=== PATIENT | male | born 1965 | race Caucasian/White ===

== ENCOUNTER 2017-03-18 14:18 | Emergency (ER) | payer MEDICARE, MEDICAID ==
[~2017-03-18] VITALS: Ht 177.8 cm; Wt 146.5 kg
[~2017-03-18 14:18] MED LIST: ADVAIR 500/501 E1 INH; ALLOPURINOL300 MG PO; ATORVASTATIN CA20 M1 PO; B12,B-12,B 12500 MC1 PO; CARDIZEM CD240 MG PO; CARDIZEM CD360 MG PO; CARVEDILOL25 MG PO; COLCHICINE0.6 MG PO; COUMADIN; COUMADIN0.5 MG PO; COUMADIN5 MG; COUMADIN6 MG; DELTASONE5 MG; DIAMOX250 MG PO; DIAMOX500 MG PO; DIGOXIN0.25 MG PO; DOXYCYCLINE MO100 MG; DOXYCYCLINE100 M3 PO; DUONEB 3 MG/3 ML3 M1 INH; FOLIC ACID1 MG PO; GLIPIZIDE5 MG PO; GLUCOTROL10 MG PO; LANTUS100 U/ML SC; LASIX80 MG PO; LEVAQUIN750 M1 PO; LOVASTATIN20 MG PO; MEDROL DOSEPAK4 MG PO; METFORMIN HCL1000 MG PO; METFORMIN500 MG PO; NASCOBAL500 MCG/01; NORCO 5-325 TA1 EACH PO; PENICILLIN VK500 MG PO; POTASSIUM20 MEQ PO; PREDNISONE10 MG PO; PREDNISONE20 MG; SINGULAIR10 M1 PO; SYMBICORT1 AE1 INH; TAZTIA XT360 MG PO; VIBRAMYCIN100 MG PO; VICODIN 5-3001 EACH PO; VITAMIN B121000 MC2 IM; VITAMIN D-32000 UNIT PO; XARE20MG PO; ZITHROMAX500 MG PO; [UNRECOGNIZED DRUG - REMARK]; coumadin
[2017-03-18 14:27] VITALS: BP 148/69
[2017-03-18 14:57] LABS: BILIRUBIN NEGATIVE (NEGATIVE); BLOOD NEGATIVE (NEGATIVE); CLARITY SL CLOUDY (CLEAR); COLOR YELLOW (YELLOW); GLUCOSE 1+ (NEGATIVE); KETONE NEGATIVE (NEGATIVE); LEUKO ESTERASE NEGATIVE (NEGATIVE); NITRITE NEGATIVE (NEGATIVE); PH 6.5 (5.0-9.0); PROTEIN 1+ (NEGATIVE)
[2017-03-18 14:57] LABS: BASO # 0.1 10*3/uL (0.0-0.1); BASO % 0.7 % (0.0-1.0); EOS # 0.2 10*3/uL (0.0-0.4); EOS % 1.9 % (1.0-4.0); HEMATOCRIT 43.3 % (42.0-52.0); HEMOGLOBIN 12.8 g/dl (14.0-18.0); LYMPH # 2.9 10*3/uL (1.3-4.4); LYMPH % 27.6 % (27.0-41.0); MEAN CELL VOLUME 91.7 fl (80.0-94.0); MEAN CORPUSCULAR HGB 27.1 pg (27.0-31.0); MEAN CORPUSCULAR HGB CONC 29.6 g/dl (33.0-37.0); MEAN PLATELET VOLUME 11.3 fl (9.6-12.3); MONO # 0.6 10*3/uL (0.1-1.0); MONO % 5.6 % (3.0-9.0); NEUT # 6.7 10*3/uL (2.3-7.9); NEUT % 63.8 % (47.0-73.0); PLATELET COUNT AUTOMATED 270 10*3/uL (130-400); RED BLOOD COUNT 4.72 10*6/uL (4.50-5.90); RED CELL DISTRI WIDTH 15.2 % (0-14.5); WHITE BLOOD COUNT 10.5 10*3/uL (4.8-10.8)
[2017-03-18 15:06] LABS: INTERNATIONAL NORM RATIO 1.1 (2.0-3.5); PROTHROMBIN TIME 11.3 SECONDS (9.0-12.4)
[2017-03-18 15:12] LABS: RBC 0-2 rbc/hpf (0-2); URINE REFLEX COMMENT NO (NO); WBC 0-2 wbc/hpf (0-5)
[2017-03-18 15:52] LABS: ALBUMIN 3.2 gm/dl (3.1-4.5); ALKALINE PHOSPHATASE 113 U/L (45-117); BILIRUBIN, TOTAL 0.5 mg/dl (0.2-1.0); BUN 10 mg/dl (7-24); CARBON DIOXIDE 34 mmol/L (21-32); CHLORIDE 96 mmol/L (98-107); EST GLOM FILT AFRICAN AMERICAN > 60 ml/min; GLUCOSE 271 mg/dL (65-99); SGOT/AST 8 IU/L (3-35); SGPT/ALT 14 U/L (12-78); SODIUM 138 mmol/L (136-145); TOTAL PROTEIN 7.2 gm/dL (6.4-8.2)
[2017-03-18 15:53] LABS: C-REACTIVE PROTEIN 1.24 MG/DL (0-0.3); CKMB < 0.5 ng/ml (0.5-3.6); CPK 36 U/L (39-308); MAGNESIUM 1.9 mg/dL (1.5-2.1); TROPONIN I < 0.015 ng/ml (<0.045)
[2017-03-18] MEDS ORDERED: PREDNISONE10 MG PO (16:01)
[2017-03-18] MEDS ORDERED: DOXYCYCLINE100 M3 PO (16:01)
== END 2017-03-18 16:19 | disposition home or self-care (01) ==
LOC: ED 14:18
PROVIDERS: Registered Nurse
DX: J96.10 Chronic respiratory failure, unspecified whether with hypoxia or hypercapnia (principal); J44.1 Chronic obstructive pulmonary disease with (acute) exacerbation; F17.200 Nicotine dependence, unspecified, uncomplicated; Z99.81 Dependence on supplemental oxygen; Z79.899 Other long term (current) drug therapy

== ENCOUNTER 2017-06-13 16:31 | Emergency (ER) | payer MEDICARE, MEDICAID ==
[~2017-06-13] VITALS: Ht 177.8 cm; Wt 147.4 kg
[2017-06-13 16:37] VITALS: BP 176/76
[2017-06-13] MEDS ORDERED: CLINDAMYCIN HC300 MG PO (18:26)
[2017-06-13] MEDS ORDERED: NAPROSYN500 MG PO (18:34)
== END 2017-06-13 18:28 | disposition home or self-care (01) ==
LOC: ED 16:31
DX: K02.9 Dental caries, unspecified (principal); F17.200 Nicotine dependence, unspecified, uncomplicated; J44.9 Chronic obstructive pulmonary disease, unspecified; I48.91 Unspecified atrial fibrillation; M10.9 Gout, unspecified; E11.65 Type 2 diabetes mellitus with hyperglycemia; E78.5 Hyperlipidemia, unspecified; E66.01 Morbid (severe) obesity due to excess calories; I50.9 Heart failure, unspecified; Z87.01 Personal history of pneumonia (recurrent); Z99.81 Dependence on supplemental oxygen; Z98.890 Other specified postprocedural states; Z79.899 Other long term (current) drug therapy

== ENCOUNTER → 2018-02-19 | Outpatient (CLI) | payer MEDICARE ==
[~2018-02-19] MED LIST changes: +CLINDAMYCIN HC300 MG PO; +CYCLOBENZAPRINE10 MG PO; +NAPROSYN500 MG PO
[2018-02-19 08:54] LABS: BILIRUBIN NEGATIVE (NEGATIVE); BLOOD NEGATIVE (NEGATIVE); CLARITY CLEAR (CLEAR); COLOR YELLOW (YELLOW); GLUCOSE 3+ (NEGATIVE); KETONE NEGATIVE (NEGATIVE); LEUKO ESTERASE NEGATIVE (NEGATIVE); NITRITE NEGATIVE (NEGATIVE); SPECIFIC GRAVITY 1.015 (1.005-1.030); UROBILINOGEN 0.2 E.U./dl (0.2-1.0)
[2018-02-19 09:13] LABS: EPITHELIAL CELLS 0-2
[2018-02-19 09:31] LABS: ALBUMIN 3.5 gm/dl (3.1-4.5); BUN 13 mg/dl (7-24); CHLORIDE 101 mmol/L (98-107); POTASSIUM 3.6 mmol/L (3.5-5.1); SGOT/AST 8 IU/L (3-35); SGPT/ALT 13 U/L (12-78); SODIUM 139 mmol/L (136-145)
[2018-02-19 09:35] LABS: ALKALINE PHOSPHATASE 123 U/L (45-117); BILIRUBIN, DIRECT 0.1 mg/dL (0.0-0.2); CHOLESTEROL 127 mg/dL (<200); CREATININE 0.94 mg/dL (0.70-1.30); HDL CHOLESTEROL 26 mg/dl (40-60); LDL CHOLESTEROL 66 mg/dL (9-159); TRIGLYCERIDES 176 mg/dl (<150); VLDL CHOLESTEROL 35 mg/dL (6-40)
== END | disposition home or self-care (01) ==
LOC: LAB 08:13
PROVIDERS: Internal Medicine
DX: E78.5 Hyperlipidemia, unspecified (principal); E11.65 Type 2 diabetes mellitus with hyperglycemia; E55.9 Vitamin D deficiency, unspecified

== ENCOUNTER → 2018-07-03 | Outpatient (CLI) | payer MEDICARE ==
[2018-07-03 10:18] LABS: BILIRUBIN NEGATIVE (NEGATIVE); BLOOD TRACE-INTACT (NEGATIVE); CLARITY CLEAR (CLEAR); COLOR YELLOW (YELLOW); GLUCOSE 3+ (NEGATIVE); KETONE NEGATIVE (NEGATIVE); LEUKO ESTERASE NEGATIVE (NEGATIVE); NITRITE NEGATIVE (NEGATIVE); SPECIFIC GRAVITY 1.015 (1.005-1.030)
[2018-07-03 10:30] LABS: ALBUMIN 3.3 gm/dl (3.1-4.5); ALKALINE PHOSPHATASE 107 U/L (45-117); BILIRUBIN, DIRECT 0.2 mg/dL (0.0-0.2); BUN 15 mg/dl (7-24); CHLORIDE 100 mmol/L (98-107); CHOLESTEROL 120 mg/dL (<200); CREATININE 0.93 mg/dL (0.70-1.30); HDL CHOLESTEROL 32 mg/dl (40-60); LDL CHOLESTEROL 63 mg/dL (9-159); POTASSIUM 3.7 mmol/L (3.5-5.1); SGOT/AST 6 IU/L (3-35); SGPT/ALT 14 U/L (12-78); SODIUM 142 mmol/L (136-145); TOTAL PROTEIN 7.4 gm/dL (6.4-8.2); TRIGLYCERIDES 127 mg/dl (<150); VLDL CHOLESTEROL 25 mg/dL (6-40)
== END ==
LOC: LAB 09:38
PROVIDERS: Internal Medicine
DX: E11.65 Type 2 diabetes mellitus with hyperglycemia (principal); E55.9 Vitamin D deficiency, unspecified; E78.5 Hyperlipidemia, unspecified

== ENCOUNTER 2018-08-30 11:26 | Inpatient (IN) | payer MEDICARE ==
[~2018-08-30] VITALS: Ht 177.8 cm; Wt 154.7 kg
[2018-08-30] VITALS (7 sets, daily range): BP systolic 123–153; BP diastolic 62–79
--- NOTE | ~2018-08-30 | PR ---
[place], [place] PROGRESS NOTE NAME: KOJO BORJAS [facility] WITH [facility] #: [id number] UNIT #: [id number] ROOM: 407 DOCTOR: CAROLINA ACUÑA MD,CHINO BIRTHDATE: [birth year] DOS: 09/01/2018 PULMONARY PROGRESS NOTE SUBJECTIVE: The patient has been comfortably resting, using BiPAP. Reported gradual reduction of the symptoms of shortness of breath, coughing, and wheezing in the last 24 hours. Denies symptoms of fever or chills. Denies any pain of the lower extremities. The patient denies symptoms of headache, diplopia, nausea, and vomiting. He is complaining of some mild dryness of the mouth. OBJECTIVE: VITAL SIGNS: Normal temperature, respiratory rate 20, heart rate 91, blood pressure 139/65. Pulse oxygen saturation on 5 liters nasal cannula was 98% saturation. HEENT: Chronic obesity. Head was atraumatic. Eyes nonicterus. NECK: Supple. CARDIOVASCULAR: S1 and S2 audible. LUNGS: Moderate decreased breath sounds, mild expiratory wheezing. ABDOMEN: Soft, nontender. Bowel sounds present. EXTREMITIES: Without any acute edema. VISIBLE SKIN: No lesions or rashes. MUSCULOSKELETAL: Without any acute deformities. CENTRAL NERVOUS SYSTEM: Cranial nerves 2-12 intact. DIAGNOSTIC DATA: Chest x-ray that was done yesterday shows evidence of pleural fluid with improvement in the aeration noted partially as well. Left lung appeared to be clear. Culture of the sputum preliminary noted normal berta. BMP this morning with BUN 25, creatinine normal, glucose 209, sodium 135, CO2 35. CBC this morning with WBC 11.6, hemoglobin 9.1, hematocrit 34.6, and platelet count 350,000. IMPRESSION: 1. The patient with resolving acute congestive heart failure with acute on chronic hypercapnic hypoxic respiratory failure. 2. Compression atelectasis. 3. Acute exacerbation of chronic obstructive pulmonary disease. 4. Chronic nicotine dependence. PLAN OF THERAPY: Continue diuretics, bronchodilators, and oxygen supplementation. Monitoring of respiratory status. Continue Solu-Medrol at current dose. Continuation of diuretic, which has been switched to intravenous Lasix 100 mg IV daily. Bronchodilators administration. Continue use of BiPAP. Ambulation as tolerated. Titrate oxygen supplementation to maintain pulse ox saturation 92% or greater. [place], [place] PROGRESS NOTE NAME: KOJO BORJAS UNIT #: [id number] ROOM: 407 DOCTOR: CAROLINA ACUÑA MD,CHINO BIRTHDATE: [birth year] CHINO FIGUEROA MD CM:PNCLYDE [id number] 1353 CHINO ACUÑA MD 09/01/18 1352 interface
--- NOTE | ~2018-08-30 | EKG ---
[place], [place] ELECTROCARDIOGRAM REPORT NAME: KOJO BORJAS UNIT #: [id number] ROOM: 407 DOCTOR: ANAMARIA DRAFT REPORT BIRTHDATE: [birth year] [facility] Test Date: 2018-08-30 Test Time: 11:54:16 Pat Name: KOJO BORJAS Department: Room: 407 Gender: M Kindergarten Instructional Assistant: Hilary Abrams : 1965 Requested By: ANKITA FARFAN DNP Order Number: [id number] Reading MD: Blair Del Toro MD Measurements Intervals [place] Rate: 80 P: [place]: QRS: 67 QRSD: 107 T: 71 QT: 399 QTc: 461 Interpretive Statements Atrial fibrillation Low voltage, extremity leads Borderline ST depression, anterior leads Electronically Signed On 08-31-2018 12:41:05 PST by Blair Del Toro MD CM:EKGRPT:ELECTROCARDIOGRAM REPORT [id number] ANKITA CONRAD DRAFT REPORT ANKITA FARFAN DNP
--- NOTE | ~2018-08-30 | PR ---
[place], [place] PROGRESS NOTE [id number] UNIT #: [id number] ROOM: 407 DOCTOR: CAROLINA ACUÑA MD,CHINO BIRTHDATE: [birth year] DOS: 09/02/2018 PULMONARY PROGRESS NOTE SUBJECTIVE: The patient has been noted comfortable at this time with continued reduction and resolution of acute respiratory symptoms, shortness of breath and cough. Denies symptoms of chest pain. No fever or chills. The edema of the extremity was resolving. PHYSICAL EXAMINATION: VITAL SIGNS: Normal temperature, respiratory rate of 18, heart rate of 68, blood pressure 118/53. The pulse oxygen saturation recorded as 95% on 40% oxygen. HEENT: Head was atraumatic. Eyes nonicterus. NECK: Supple. CARDIOVASCULAR: S1, S2 is audible. LUNGS: The patient was noted with improvement in air entry, still noted decreased breaths in the right lower lung. ABDOMEN: Soft, nontender. Bowel sounds present. EXTREMITIES: No new change. LABORATORY DATA: BMP: BUN 27, creatinine normal, glucose 244 and CO2 35. IMPRESSION: 1. Resolving congestive heart failure. 2. Improvement in acute exacerbation of chronic obstructive pulmonary disease progressively and respiratory status in general. PLAN OF TREATMENT: Discharge planning by primary care physician. From the pulmonary standpoint, the patient could consider discharge on oral diuretics, bronchodilators, and tapering dose of prednisone. CHINO FIGUEROA MD CM:PNTRANS [id number] 1335 CHINO ACUÑA MD 09/02/18 1333 interface
--- NOTE | ~2018-08-30 | CON ---
[place], [place] REPORT OF CONSULTATION NAME: KOJO BORJAS [facility] #: [id number] UNIT #: [id number] ROOM: 407 DOCTOR: CHINO DUARTE MD BIRTHDATE: [birth year] DOS: 08/31/2018 PULMONARY CONSULTATION, EVALUATION AND MANAGEMENT CONSULTATION REQUESTED BY: Hospitalist services. REASON FOR CONSULTATION: For assessment of acute exacerbation of chronic obstructive pulmonary disease. HISTORY OF PRESENT ILLNESS: This is a 52-year-old white male known to me with past history of end-stage COPD with chronic hypercapnia hypoxic respiratory failure, severe obstructive sleep apnea disorder, and metabolic alkalosis. The patient admitted to the hospital on 08/30/2018. The patient presented to the hospital. The patient reportedly getting acute shortness of breath more than his usual shortness of breath in the past 1 week. The shortness of breath has been noted progressively worsened. The patient was noted symptoms of coughing and expectorating intermittent yellowish sputum of different quantity. The symptoms was also associated wheezing and tightness in the chest. There were no symptoms of chest pain reported by the patient. The patient was assessed in the Emergency Room for further assessment. He has been currently admitted to the hospital for the medical management of acute exacerbation of COPD. REVIEW OF SYSTEMS: CONSTITUTIONAL: Fatigue and tiredness were reported without any symptoms of fever or chills. EYES: Denies any burning, redness, or tenderness. EARS, NOSE, AND THROAT: Denies sore throat, hoarseness, otalgia, postnasal drainage or epistaxis. CARDIOVASCULAR: Denies angina pain noted with intermittent edema of the lower extremities. GASTROINTESTINAL: No dysphagia, nausea, vomiting, diarrhea, abdominal pain, hematemesis, melena, or hematochezia. Reported bloating symptoms in the abdomen. GENITOURINARY: No dysuria, suprapubic pain, or hematuria. MUSCULOSKELETAL: No acute joint pain, redness, or tenderness. SKIN: Denies abnormal lesions or rashes. CENTRAL NERVOUS SYSTEM: Denies dizziness, headache, diplopia, or syncopal episodes. Remaining systems were reviewed, they were noted all negative. PAST MEDICAL HISTORY: 1. End-stage COPD. 2. Chronic hypoxic respiratory failure with use of oxygen for long-term. 3. Chronic atrial fibrillation. 4. Congestive heart failure with diastolic dysfunction. 5. Severe morbid obesity. 6. Cor pulmonale. 7. Continue low-grade nicotine abuse. 8. Uncomplicated severe persistent bronchial asthma. [place], [place] REPORT OF CONSULTATION NAME: KOJO BORJAS UNIT #: [id number] ROOM: 407 DOCTOR: CAROLINA ACUÑA MD,CHINO BIRTHDATE: [birth year] 9. Obstructive sleep apnea disorder, manic with the BiPAP settings of 18/4 with 4 liters of oxygen supplement. 10. Essential hypertension. 11. Past history of polycythemia secondary to chronic hypoxia, resolved. 12. 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 PAST SURGICAL HISTORY: 1. Left eye because of strabismus. 2. Left foot surgery. 3. Therapeutic bronchoscopy. SOCIAL HISTORY: The patient is currently , lives with a girlfriend. Denies history of alcohol use, has been known with history of marijuana use recreationally at times. Denies any alcohol use. Tobacco use noted at age of 89 years old, about a pack of cigarettes per day, currently smoking 2-3 cigarettes a day, sometimes quarter of a pack of cigarettes per day. FAMILY HISTORY: Noted as father at 64 years with complication of coronary artery disease and colon cancer. Mother at the age 64 years due to complications of an MVA. CURRENT MEDICATIONS: Administered during this hospitalization Digoxin, Cardizem, potassium chloride, Diamox, allopurinol, nicotine, Xarelto, Solu-Medrol 40 mg b.i.d., Lipitor, Lasix 80 mg p.o. b.i.d., DuoNeb q.4 hours, Levaquin, and others. DRUG ALLERGIES: No known drug allergies. PHYSICAL EXAMINATION: GENERAL: This is a 52-year-old male patient who has been currently noted awake and alert without any acute distress this morning of assessment, using oxygen supplementation with use of the BiPAP last night. VITAL SIGNS: Height 5 feet 10 inches, weight of 341 pounds, BMI 48.9. Recorded as normal temperature, respiratory 24-16, heart rate of 90-74, blood pressure 140/67-128/62. Intake for the patient of 870, output 600 mL. The pulse oxygen saturation, 96% saturation on 6 L nasal cannula. HEENT: Examination shows head was atraumatic. Eyes nonicterus. NECK: Supple. Severe chronic obesity. CARDIOVASCULAR: S1, S2 audible. LUNGS: Noted with expiratory wheezing in the lungs bilaterally. There were no crackles. ABDOMEN: Noted severe obesity. Bowel sounds present. EXTREMITIES: Chronic changes. Mild edema of the lower extremities. CENTRAL NERVOUS SYSTEM: Cranial nerves 2-12 intact. VISIBLE SKIN: No lesions or rashes. MUSCULOSKELETAL: Without any acute deformities. LABORATORY DATA: The lactic acid yesterday 1.7. CBC yesterday on admission, WBC count normal, hemoglobin 11.7, hematocrit 36.4, and platelet count normal. CMP, normal BUN and creatinine. CO2 of 37. PT/PTT yesterday as normal. [place], [place] REPORT OF CONSULTATION NAME: KOJO BORJAS UNIT #: [id number] ROOM: 407 DOCTOR: CAROLINA ACUÑA MD,[facility] BIRTHDATE: [birth year] Arterial blood gas that was done yesterday afternoon, pH of 7.33, pCO2 of 68, pO2 of 60.9 on 6 liters nasal cannula. CBC this morning essentially remains the same. PT/PTT repeated again this morning. CMP this morning, glucose 177, CO2 of 37, normal other electrolytes. Chest x-ray that was done on 08/30/2018 just 1 view was reviewed, which shows the increased pulmonary venous congestion marking, possibility of pleural fluid in the right side was noted, compression atelectasis. Difficult to exclude any pneumonia. Cardiomegaly was seen. IMPRESSION: 1. The patient will be currently admitted to the hospital with an [id number] hypercapnic hypoxic respiratory failure result of congestive heart failure, pleural fluid formation, compression elected likely pneumonia. The patient appeared to be less likely recurrent for assessment. 2. Acute exacerbation of the chronic obstructive pulmonary disease as well. 3. The patient with severe morbid obesity. 4. Chronic anticoagulation with atrial fibrillation, which has been noted currently in controlled range. 5. Severe morbid obesity. 6. Chronic metabolic alkalosis. 7. Low-grade nicotine abuse. PLAN OF MANAGEMENT: I will be ordering a PA lateral chest x-ray at this time. Continue antibiotics until the culture results available and possible discontinuation should be considered at that time. Continue current dose of the corticosteroids. The BiPAP has been started with setting of 18/10 to support the respiratory failure during current hospitalization. Obtain the sputum for Gram stain and culture. The patient is able to expectorate sputum as well. Additional treatment changes will be ordered based on progression of the illness. Supportive care, other treatment therapy, plan of management and care plan for this patient as well. Bronchodilators continue to be administered every 4 hours. Other plan of management therapy a plan of care for patient as well. Additional treatment changes recommended based on progression of the illness. If the pleural fluid will be confirmed and an enlarged further thoracentesis might need to be performed for this to resolve the current pleural fluid. Diuretic might need to be switched to the intravenous, if the repeat chest x-ray, which showed persistent congestive heart failure findings. Thanks for allowing me to participate in care of this patient. [place], [place] REPORT OF CONSULTATION NAME: KOJO BORJAS [place] UNIT #: [id number] ROOM: [facility] DOCTOR: CHINO DUARTE MD BIRTHDATE: [birth year] CHINO FIGUEROA MD CM:CONSTR:REPORT OF CONSULTATION 1307 09/01/18 0240 interface
[~2018-08-30 11:26] MED LIST changes: +ACETAZOLAMIDE250 MG PO; -DIAMOX500 MG PO; +LANTUS SOL100 UNIT/1 SQ; -LANTUS100 U/ML SC; +SYMB160 INH; -SYMBICORT1 AE1 INH; -TAZTIA XT360 MG PO; +TIAZAC360 M1 PO
[2018-08-30 11:59] LABS: BASO # 0.1 10*3/uL (0.0-0.1); EOS # 0.2 10*3/uL (0.0-0.4); EOS % 1.7 % (1.0-4.0); HEMATOCRIT 36.4 % (42.0-52.0); HEMOGLOBIN 9.7 g/dl (14.0-18.0); LYMPH # 2.1 10*3/uL (1.3-4.4); LYMPH % 20.1 % (27.0-41.0); MEAN CORPUSCULAR HGB 21.8 pg (27.0-31.0); MEAN CORPUSCULAR HGB CONC 26.6 g/dl (33.0-37.0); MEAN PLATELET VOLUME 9.6 fl (9.6-12.3); MONO # 0.6 10*3/uL (0.1-1.0); MONO % 5.4 % (3.0-9.0); NEUT # 7.5 10*3/uL (2.3-7.9); NEUT % 71.3 % (47.0-73.0); PLATELET COUNT AUTOMATED 346 10*3/uL (130-400); RED BLOOD COUNT 4.44 10*6/uL (4.50-5.90); RED CELL DISTRI WIDTH 18.4 % (0-14.5); WHITE BLOOD COUNT 10.5 10*3/uL (4.8-10.8)
[2018-08-30 12:08] LABS: ACT PARTIAL THROMBO TIME 27.7 SECONDS (20.8-31.5); INTERNATIONAL NORM RATIO 1.1 (2.0-3.5)
[2018-08-30 12:16] LABS: ALBUMIN 3.1 gm/dl (3.1-4.5); ALKALINE PHOSPHATASE 106 U/L (45-117); BUN 13 mg/dl (7-24); CHLORIDE 98 mmol/L (98-107); CREATININE 0.98 mg/dL (0.70-1.30); LIPASE 300 U/L (73-393); POTASSIUM 3.9 mmol/L (3.5-5.1); SGOT/AST 9 IU/L (3-35); SGPT/ALT 12 U/L (12-78); SODIUM 137 mmol/L (136-145); TOTAL PROTEIN 7.3 gm/dL (6.4-8.2)
[2018-08-30 12:17] LABS: TROPONIN I < 0.015 ng/ml (<0.045)
[2018-08-30] MEDS ORDERED: VITAMIN D22000 UNIT PO (15:04)
[2018-08-30] MEDS ORDERED: PROAIR HFA8.5 GM INH (15:05)
[2018-08-30] MEDS ORDERED: COLACE100 MG PO (15:06)
[2018-08-30] MEDS ORDERED: LANOXIN250 MCG PO (15:11)
[2018-08-30 16:10] LABS: ABG BASE EXCESS 8.1 mmol/L (-2.0-2.0); ABG HCO3 35.6 mmol/l (22-26); ABG O2 SATURATION 90.8 % (95-97); ARTERIAL BLOOD GAS PCO2 68.4 mmHg (35-45); ARTERIAL BLOOD GAS PH 7.333 (7.35-7.45); ARTERIAL BLOOD GAS PO2 60.9 mmHg (80-90)
[2018-08-31] VITALS: BP 110/41
[2018-08-31 06:28] LABS: ACT PARTIAL THROMBO TIME 24.4 SECONDS (20.8-31.5); INTERNATIONAL NORM RATIO 1.1 (2.0-3.5)
[2018-08-31 06:29] LABS: BASO % 0.1 % (0.0-1.0); HEMATOCRIT 34.8 % (42.0-52.0); HEMOGLOBIN 9.2 g/dl (14.0-18.0); LYMPH # 1.1 10*3/uL (1.3-4.4); LYMPH % 10.6 % (27.0-41.0); MEAN CELL VOLUME 80.9 fl (80.0-94.0); MEAN CORPUSCULAR HGB 21.4 pg (27.0-31.0); MEAN CORPUSCULAR HGB CONC 26.4 g/dl (33.0-37.0); MEAN PLATELET VOLUME 10.5 fl (9.6-12.3); MONO # 0.2 10*3/uL (0.1-1.0); MONO % 1.5 % (3.0-9.0); NEUT # 8.8 10*3/uL (2.3-7.9); NEUT % 87.2 % (47.0-73.0); PLATELET COUNT AUTOMATED 339 10*3/uL (130-400); RED CELL DISTRI WIDTH 18.1 % (0-14.5); WHITE BLOOD COUNT 10.1 10*3/uL (4.8-10.8)
[2018-08-31 06:49] LABS: ALBUMIN 2.9 gm/dl (3.1-4.5); ALKALINE PHOSPHATASE 92 U/L (45-117); BUN 19 mg/dl (7-24); CHLORIDE 99 mmol/L (98-107); CHOLESTEROL 110 mg/dL (<200); CREATININE 0.93 mg/dL (0.70-1.30); HDL CHOLESTEROL 29 mg/dl (40-60); LDL CHOLESTEROL 68 mg/dL (9-159); PHOSPHOROUS 3.6 mg/dL (2.5-4.9); POTASSIUM 4.4 mmol/L (3.5-5.1); SGOT/AST 6 IU/L (3-35); SGPT/ALT 9 U/L (12-78); SODIUM 140 mmol/L (136-145); TOTAL PROTEIN 6.8 gm/dL (6.4-8.2); TRIGLYCERIDES 66 mg/dl (<150); VLDL CHOLESTEROL 13 mg/dL (6-40)
[2018-08-31 06:54] LABS: THYROID STIM HORMONE (HS) 0.566 uIU/ml (0.358-4.75)
[2018-08-31 08:00] VITALS: BP 128/62
[2018-08-31 08:03] LABS: VITAMIN D, 25-HYDROXY 26.3 ng/mL (30-100)
[2018-08-31 12:00] VITALS: BP 142/51
[2018-08-31 16:00] VITALS: BP 169/75
[2018-08-31 20:00] VITALS: BP 135/62
[2018-09-01] VITALS: BP 139/65
[2018-09-01 06:28] LABS: BASO % 0.1 % (0.0-1.0); HEMATOCRIT 34.6 % (42.0-52.0); HEMOGLOBIN 9.1 g/dl (14.0-18.0); LYMPH % 8.7 % (27.0-41.0); MEAN CELL VOLUME 80.5 fl (80.0-94.0); MEAN CORPUSCULAR HGB 21.2 pg (27.0-31.0); MEAN CORPUSCULAR HGB CONC 26.3 g/dl (33.0-37.0); MEAN PLATELET VOLUME 10.6 fl (9.6-12.3); MONO # 0.3 10*3/uL (0.1-1.0); MONO % 2.2 % (3.0-9.0); NEUT # 10.3 10*3/uL (2.3-7.9); NEUT % 88.6 % (47.0-73.0); PLATELET COUNT AUTOMATED 350 10*3/uL (130-400); RED CELL DISTRI WIDTH 18.1 % (0-14.5); WHITE BLOOD COUNT 11.6 10*3/uL (4.8-10.8)
[2018-09-01 06:52] LABS: BUN 25 mg/dl (7-24); CHLORIDE 94 mmol/L (98-107); CREATININE 0.96 mg/dL (0.70-1.30); POTASSIUM 4.1 mmol/L (3.5-5.1); SODIUM 135 mmol/L (136-145)
[2018-09-01 08:00] VITALS: BP 136/72
[2018-09-01 12:00] VITALS: BP 146/74
[2018-09-01 16:30] VITALS: BP 145/68
[2018-09-01 20:00] VITALS: BP 157/65
[2018-09-02] VITALS: BP 118/53
[2018-09-02 06:47] LABS: BASO % 0.1 % (0.0-1.0); HEMATOCRIT 35.4 % (42.0-52.0); HEMOGLOBIN 9.5 g/dl (14.0-18.0); LYMPH # 1.1 10*3/uL (1.3-4.4); LYMPH % 9.6 % (27.0-41.0); MEAN CELL VOLUME 80.3 fl (80.0-94.0); MEAN CORPUSCULAR HGB 21.5 pg (27.0-31.0); MEAN CORPUSCULAR HGB CONC 26.8 g/dl (33.0-37.0); MEAN PLATELET VOLUME 10.4 fl (9.6-12.3); MONO # 0.4 10*3/uL (0.1-1.0); MONO % 3.6 % (3.0-9.0); NEUT # 10.2 10*3/uL (2.3-7.9); PLATELET COUNT AUTOMATED 356 10*3/uL (130-400); RED BLOOD COUNT 4.41 10*6/uL (4.50-5.90); RED CELL DISTRI WIDTH 17.9 % (0-14.5); WHITE BLOOD COUNT 11.8 10*3/uL (4.8-10.8)
[2018-09-02 07:10] LABS: BUN 27 mg/dl (7-24); CHLORIDE 98 mmol/L (98-107); CREATININE 0.95 mg/dL (0.70-1.30); POTASSIUM 4.5 mmol/L (3.5-5.1); SODIUM 139 mmol/L (136-145)
[2018-09-02 08:00] VITALS: BP 136/64
[2018-09-02] MEDS ORDERED: PREDNISONE10 MG PO (11:47)
[2018-09-02] MEDS ORDERED: DOXYCYCLINE100 M3 PO (11:47)
[2018-09-02] MEDS ORDERED: B12,B-12,B 12500 MC1 PO (11:47)
[2018-09-02] MEDS ORDERED: Zaroxolyn,Diul2.5 MG PO (11:47)
[2018-09-02 12:00] VITALS: BP 139/70
== END 2018-09-02 12:44 | disposition home or self-care (01) | DRG 871 ==
LOC: ED 11:26 → EDHOLD 13:38 → 4E 13:38
PROVIDERS: Internal Medicine; Internal Medicine Critical Care Medicine; Nurse Practitioner Family
PROC: 5A09357 Assistance with Respiratory Ventilation, Less than 24 Consecutive Hours, Continuous Positive Airway Pressure (ICD-10-PCS; principal; 2018-08-31)
PROC: 5A09357 Assistance with Respiratory Ventilation, Less than 24 Consecutive Hours, Continuous Positive Airway Pressure (ICD-10-PCS; 2018-09-01)
PROC: 5A09357 Assistance with Respiratory Ventilation, Less than 24 Consecutive Hours, Continuous Positive Airway Pressure (ICD-10-PCS; 2018-09-02)
DX: A41.9 Sepsis, unspecified organism (principal); J18.1 Lobar pneumonia, unspecified organism; J96.22 Acute and chronic respiratory failure with hypercapnia; J96.21 Acute and chronic respiratory failure with hypoxia; J44.1 Chronic obstructive pulmonary disease with (acute) exacerbation; I50.32 Chronic diastolic (congestive) heart failure; J44.0 Chronic obstructive pulmonary disease with (acute) lower respiratory infection; J98.11 Atelectasis; E87.3 Alkalosis; D64.9 Anemia, unspecified; D72.810 Lymphocytopenia; E83.41 Hypermagnesemia; I48.2 Chronic atrial fibrillation; I07.1 Rheumatic tricuspid insufficiency; I27.20 Pulmonary hypertension, unspecified; I11.0 Hypertensive heart disease with heart failure; J45.50 Severe persistent asthma, uncomplicated; G47.33 Obstructive sleep apnea (adult) (pediatric); F17.210 Nicotine dependence, cigarettes, uncomplicated; I48.0 Paroxysmal atrial fibrillation; M10.9 Gout, unspecified; E78.5 Hyperlipidemia, unspecified; E11.65 Type 2 diabetes mellitus with hyperglycemia; K64.9 Unspecified hemorrhoids; E66.01 Morbid (severe) obesity due to excess calories; G47.30 Sleep apnea, unspecified; Z71.6 Tobacco abuse counseling; Z99.81 Dependence on supplemental oxygen; Z83.3 Family history of diabetes mellitus; Z79.899 Other long term (current) drug therapy; Z82.49 Family history of ischemic heart disease and other diseases of the circulatory system; Z80.0 Family history of malignant neoplasm of digestive organs

== ENCOUNTER → 2018-09-10 | Outpatient (CLI) | payer MEDICARE ==
[~2018-09-10] MED LIST changes: +COLACE100 MG PO; +DOXYCYCLINE100 MG PO; +LANOXIN250 MCG PO; +PROAIR HFA8.5 GM INH; +VITAMIN D22000 UNIT PO; +Zaroxolyn,Diul2.5 MG PO
== END | disposition home or self-care (01) ==
LOC: RAD 12:36
DX: J90 Pleural effusion, not elsewhere classified (principal); I11.0 Hypertensive heart disease with heart failure; I50.9 Heart failure, unspecified; E11.9 Type 2 diabetes mellitus without complications; J44.9 Chronic obstructive pulmonary disease, unspecified; F17.200 Nicotine dependence, unspecified, uncomplicated

== ENCOUNTER → 2018-10-03 | Outpatient (CLI) | payer OTHER ==
[2018-10-03 10:28] LABS: BILIRUBIN NEGATIVE (NEGATIVE); BLOOD TRACE-LYSED (NEGATIVE); CLARITY SL CLOUDY (CLEAR); COLOR YELLOW (YELLOW); GLUCOSE 3+ (NEGATIVE); KETONE NEGATIVE (NEGATIVE); LEUKO ESTERASE NEGATIVE (NEGATIVE); NITRITE NEGATIVE (NEGATIVE); PH 6.5 (5.0-9.0)
[2018-10-03 10:58] LABS: ALBUMIN 3.3 gm/dl (3.1-4.5); ALKALINE PHOSPHATASE 116 U/L (45-117); BILIRUBIN, DIRECT 0.2 mg/dL (0.0-0.2); BUN 9 mg/dl (7-24); CHLORIDE 98 mmol/L (98-107); CHOLESTEROL 140 mg/dL (<200); CREATININE 0.87 mg/dL (0.70-1.30); HDL CHOLESTEROL 31 mg/dl (40-60); LDL CHOLESTEROL 83 mg/dL (9-159); POTASSIUM 3.8 mmol/L (3.5-5.1); SGOT/AST 8 IU/L (3-35); SGPT/ALT 12 U/L (12-78); SODIUM 140 mmol/L (136-145); TOTAL PROTEIN 7.5 gm/dL (6.4-8.2); TRIGLYCERIDES 130 mg/dl (<150); VLDL CHOLESTEROL 26 mg/dL (6-40)
[2018-10-03 10:59] LABS: EPITHELIAL CELLS 0-2; YEAST 1+
== END | disposition home or self-care (01) ==
LOC: LAB 09:52
PROVIDERS: Internal Medicine
DX: E55.9 Vitamin D deficiency, unspecified (principal); E11.65 Type 2 diabetes mellitus with hyperglycemia; E78.5 Hyperlipidemia, unspecified

== ENCOUNTER 2018-10-16 14:37 | Inpatient (IN) | payer OTHER ==
[~2018-10-16] VITALS: Ht 177.8 cm; Wt 145.3 kg
--- NOTE | ~2018-10-16 | PR ---
[place], [place] PROGRESS NOTE NAME: KOJO BORJAS UNIT #: [id number] ROOM: 504 DOCTOR: CAROLINA ACUÑA MD,CHINO BIRTHDATE: [birth year] DOS: 10/18/2018 SUBJECTIVE: He has shown significant reduction other respiratory symptom last 24 hours. Continue steroids, bronchodilators, and diuretics. The edema of the lower extremities resolved markedly. Shortness of breath and wheezing other symptoms, has been improving. OBJECTIVE: VITAL SIGNS: Normal temperature, respiratory rate of 20, heart rate of 80, blood pressure 141/88. Pulse oxygen saturation on 6 liters 96% saturation. Intake of 1300, output 35. Ins 2200 mL. HEAD, EYES, EARS, NOSE, AND THROAT: No acute change. CARDIOVASCULAR SYSTEM: S1, S2 is audible. LUNGS: Without any wheeze or crackles. ABDOMEN: Soft, nontender. Bowel sounds present. EXTREMITIES: No acute change. IMPRESSION: The patient has been currently noted stable at the present time with progressive resolution of the acute exacerbation of chronic obstructive pulmonary disease and congestive heart failure. PLAN OF TREATMENT: Discharge planning for potential discharge home today on tapering prednisone, oral antibiotic, could resume all his previous respiratory medication tapering dose of prednisone will be given. Continue diuretics and other therapy, plan of management, and care plan. CHINO FIGUEROA MD CM:PNTRANS 1335 1603 CHINO ACUÑA MD 10/18/18 1603 interface
--- NOTE | ~2018-10-16 | CON ---
[place], [place] REPORT OF CONSULTATION NAME: KOJO BORJAS [facility] #: [id number] UNIT #: [id number] ROOM: 504 DOCTOR: CAROLINA ACUÑA MDCHINO BIRTHDATE: [birth year] DOS: 10/17/2018 PULMONARY CONSULTATION, EVALUATION AND MANAGEMENT CONSULTATION REQUESTED BY: Hospitalist Service. REASON FOR CONSULTATION: Assessment of symptoms of shortness of breath. HISTORY OF PRESENT ILLNESS: This is a 53-year-old male, known to me, with advanced COPD, chronic hypercapnic respiratory failure, obstructive sleep apnea disorder and bronchial asthma as well with cor pulmonale. The patient has been admitted to the hospital as the patient developed symptoms of increasing shortness of breath that has been occurring and getting gradually worse. The symptoms of shortness of breath are occurring with minimal exertion. He denies symptoms of fever, chills, or any chest pain. The patient denies any symptoms of hemoptysis. He has been admitted to the hospital, currently getting treatment for congestive heart failure with diuretic therapy. Stating that he has not been started on any breathing treatment or other medications so far and shortness of breath remains the same with some worsening from admission. REVIEW OF SYSTEMS: CONSTITUTIONAL: Fatigue and tiredness reported. EYES: Denies any burning, discharge or redness. EARS, NOSE AND THROAT: Denies sore throat, hoarseness, otalgia, or postnasal drainage. CARDIOVASCULAR: Edema of the lower extremity noted. There are no symptoms of palpitations. Denies any pain of the lower extremities. GASTROINTESTINAL: Denies dysphagia, nausea, vomiting, diarrhea, abdominal pain, hematemesis, melena, or hematochezia. SKIN: Denies lesions or rashes. CENTRAL NERVOUS SYSTEM: Denies dizziness, headache, diplopia, syncopal episodes, or seizures. MUSCULOSKELETAL: Chronic intervertebral disc disease and osteoarthritis, without any acute joint pains or deformities. Remaining systems were reviewed, they were noted all negative. PAST MEDICAL HISTORY: 1. End-stage COPD. 2. Chronic hypoxic respiratory failure. 3. Chronic hypercapnic respiratory failure. 4. Obstructive sleep apnea disorder. 5. Uncomplicated severe persistent bronchial asthma. 6. Cor pulmonale. 7. Severe morbid obesity. 8. Permanent atrial fibrillation, on anticoagulation. 9. Essential hypertension. 10. Resolution of past hypoxia-induced secondary polycythemia. 11. 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 PAST SURGICAL HISTORY: [place], [place] REPORT OF CONSULTATION NAME: KOJO BORJAS UNIT #: [id number] ROOM: [facility] DOCTOR: CHINO DUARTE MD BIRTHDATE: [birth year] 1. Surgery for strabismus, both eyes. 2. Left foot surgery. 3. Therapeutic bronchoscopy. SOCIAL HISTORY: The patient is , lives with girlfriend. Denies alcohol or illicit drug use. Still smoking 3-4 cigarettes a day, but used to smoke heavily up to 3 packs of cigarettes per day in the past. FAMILY HISTORY: Father at the age of 6464 years old with complications of coronary artery disease and colon cancer. Mother at the age of 6464 years old in a motor vehicle accident. CURRENT MEDICATIONS: Administered were noted as use of Singulair, Lipitor, Cardizem-CD, allopurinol, Xarelto, IV Lasix 80 mg b.i.d., nicotine placement patches, and other p.r.n. medications. DRUG ALLERGIES: No known drug allergies. PHYSICAL EXAMINATION: GENERAL: The patient is a 53-year-old male, currently sitting on the bed, with mild shortness of breath at rest, using oxygen supplementation via nasal cannula. Height of 5 feet 10 inches, weight of 324 pounds, BMI 46. VITAL SIGNS: Which have been recorded showed the temperature remains normal, respiratory rates range between 18-20, heart rate 67-73, blood pressure 123/59-134/54. The pulse oxygen saturation on 6 liters nasal canula is 98% saturation, on BiPAP is 96% saturation. HEENT: Examination shows head is atraumatic. Eyes nonicterus. Severe chronic obesity. NECK: Supple. CARDIOVASCULAR: S1 and S2 audible. LUNGS: Decreased air exchange with ____ crackles of the lungs bilaterally. ABDOMEN: Soft with morbid obesity. It is nontender. EXTREMITIES: Show edema 2+ of the lower extremities bilaterally. VISIBLE SKIN: Without any lesions or rashes. CENTRAL NERVOUS SYSTEM: Cranial nerves 2 through 12 intact. LABORATORY DATA: CBC that is done this morning is noted with WBC count of 10.4, hemoglobin 9.5, platelet count normal. CMP that was done yesterday is noted with BUN 10, creatinine normal, CO2 of 38. CMP noted this morning as glucose of 157, BUN and creatinine normal, CO2 of 37, chloride of 97. IMAGING STUDIES: Chest x-ray 1 view that was done yesterday was reviewed personally from the PACS images, limited study, evidence of interstitial edema with findings of congestive heart failure suspected. There are no areas of consolidation or infiltration noted. IMPRESSION: 1. The patient currently admitted to the hospital with acute congestive heart failure, diastolic dysfunction and cor pulmonale, with acute exacerbation of chronic obstructive pulmonary disease and bronchial asthma. [place], [place] REPORT OF CONSULTATION NAME: KOJO BORJAS UNIT #: [id number] ROOM: 504 DOCTOR: CAROLINA ACUÑA MD,CHINO BIRTHDATE: [birth year] 2. The patient with morbid obesity as well. 3. Low-grade nicotine abuse continued. 4. Chronic metabolic alkalosis. 5. Anemia of chronic disease. PLAN OF MANAGEMENT: Continue with current diuretic, very close monitoring of the carbon dioxide level for metabolic alkalosis, and electrolytes. Bronchodilator every 4 hours. Solu-Medrol is added to the treatment as well 40 mg b.i.d. BiPAP could be continued as well. Other additional treatment changes will be recommended based on progression of his illness. Thank you for allowing me to participate in care of this patient. CHINO FIGUEROA MD CM:CONSTR:REPORT OF CONSULTATION 1225 10/17/18 1826 interface
--- NOTE | ~2018-10-16 | EKG ---
[place], [place] ELECTROCARDIOGRAM REPORT NAME: KOJO BORJAS UNIT #: [id number] ROOM: 504 DOCTOR: ANAMARIA DRAFT REPORT BIRTHDATE: [birth year] [facility] Test Date: 2018-10-16 Test Time: 14:39:24 Pat Name: KOJO BORJAS Department: Room: 504 Gender: M Fagoter: Aranza Forbes : 1965 Requested By: LINK MILLER Order Number: [id number] Reading MD: Edwin Ybarra MD Measurements Intervals [place] Rate: 77 P: [place]: QRS: 73 QRSD: 109 T: 72 QT: 382 QTc: 433 Interpretive Statements Atrial fibrillation Paired ventricular premature complexes Low voltage, extremity leads Borderline ST depression, anterior leads Baseline wander in lead(s) V4 Compared to ECG 08/30/2018 11:54:16 Ventricular premature complex(es) now present ST (T wave) deviation still present Electronically Signed On 10-19-2018 6:25:05 PST by Edwin Ybarra MD CM:EKGRPT:ELECTROCARDIOGRAM REPORT [id number] LINK CONRAD DRAFT REPORT LINK MILLER MD
[~2018-10-16 14:37] MED LIST changes: -DOXYCYCLINE100 MG PO
[2018-10-16 15:13] VITALS: BP 130/57
[2018-10-16 15:20] LABS: BASO # 0.1 10*3/uL (0.0-0.1); BASO % 0.9 % (0.0-1.0); EOS # 0.1 10*3/uL (0.0-0.4); EOS % 1.2 % (1.0-4.0); HEMATOCRIT 38.4 % (42.0-52.0); HEMOGLOBIN 10.1 g/dl (14.0-18.0); LYMPH # 2.5 10*3/uL (1.3-4.4); LYMPH % 22.5 % (27.0-41.0); MEAN CELL VOLUME 82.4 fl (80.0-94.0); MEAN CORPUSCULAR HGB 21.7 pg (27.0-31.0); MEAN CORPUSCULAR HGB CONC 26.3 g/dl (33.0-37.0); MEAN PLATELET VOLUME 9.7 fl (9.6-12.3); MONO # 0.7 10*3/uL (0.1-1.0); MONO % 6.8 % (3.0-9.0); NEUT # 7.5 10*3/uL (2.3-7.9); NEUT % 68.1 % (47.0-73.0); PLATELET COUNT AUTOMATED 303 10*3/uL (130-400); RED BLOOD COUNT 4.66 10*6/uL (4.50-5.90); RED CELL DISTRI WIDTH 18.9 % (0-14.5)
[2018-10-16 15:29] LABS: ACT PARTIAL THROMBO TIME 32.9 SECONDS (20.8-31.5); INTERNATIONAL NORM RATIO 1.2 (2.0-3.5)
[2018-10-16 15:39] LABS: ALBUMIN 3.6 gm/dl (3.1-4.5); ALKALINE PHOSPHATASE 120 U/L (45-117); BUN 10 mg/dl (7-24); CHLORIDE 98 mmol/L (98-107); SGOT/AST 8 IU/L (3-35); SGPT/ALT 13 U/L (12-78); SODIUM 139 mmol/L (136-145); TOTAL PROTEIN 7.8 gm/dL (6.4-8.2)
[2018-10-16 15:48] LABS: TROPONIN I < 0.015 ng/ml (<0.045)
[2018-10-16 15:48] LABS: ABG HCO3 35.1 mmol/l (22-26); ABG O2 SATURATION 95.8 % (95-97); ARTERIAL BLOOD GAS PCO2 68.1 mmHg (35-45); ARTERIAL BLOOD GAS PH 7.334 (7.35-7.45); ARTERIAL BLOOD GAS PO2 75.1 mmHg (80-90)
[2018-10-16 16:00] VITALS: BP 152/69
--- NOTE | 2018-10-16 16:30 | NUR ---
A 53, admitted to , under the services of MURIEL Goodwin DO with a diagnosis of COPD EXACERBATION. Chief complaint is COPD EXACERBATION. Patient arrived via bed from ER. Monitor applied. Initial assessment completed. Vital signs taken and recorded. MURIEL GOODWIN DO notified of admission to the unit. Orders received. See assessment for past medical history, medications and allergies. Patient and/or family oriented to unit. [facility] visitation policy reviewed. Clothing/patient valuable form completed. CHARLIE VELEZ
[2018-10-16 17:07] LABS: BILIRUBIN NEGATIVE (NEGATIVE); BLOOD NEGATIVE (NEGATIVE); CLARITY CLEAR (CLEAR); COLOR YELLOW (YELLOW); GLUCOSE 3+ (NEGATIVE); KETONE NEGATIVE (NEGATIVE); LEUKO ESTERASE NEGATIVE (NEGATIVE); NITRITE NEGATIVE (NEGATIVE)
[2018-10-16 17:14] LABS: BACTERIA TRACE; EPITHELIAL CELLS 0-2; WBC 0-2 wbc/hpf (0-5)
[2018-10-16 20:00] VITALS: BP 135/63
[2018-10-17] VITALS: BP 124/51
[2018-10-17 04:00] VITALS: BP 123/59
[2018-10-17 06:27] LABS: BASO % 0.2 % (0.0-1.0); EOS % 0.2 % (1.0-4.0); HEMATOCRIT 36.7 % (42.0-52.0); HEMOGLOBIN 9.5 g/dl (14.0-18.0); LYMPH # 1.2 10*3/uL (1.3-4.4); LYMPH % 11.8 % (27.0-41.0); MEAN CORPUSCULAR HGB CONC 25.9 g/dl (33.0-37.0); MEAN PLATELET VOLUME 10.6 fl (9.6-12.3); MONO # 0.2 10*3/uL (0.1-1.0); MONO % 1.4 % (3.0-9.0); PLATELET COUNT AUTOMATED 297 10*3/uL (130-400); RED BLOOD COUNT 4.53 10*6/uL (4.50-5.90); RED CELL DISTRI WIDTH 18.5 % (0-14.5); WHITE BLOOD COUNT 10.4 10*3/uL (4.8-10.8)
[2018-10-17 06:40] LABS: ALBUMIN 3.3 gm/dl (3.1-4.5); ALKALINE PHOSPHATASE 103 U/L (45-117); BUN 17 mg/dl (7-24); CHLORIDE 97 mmol/L (98-107); CREATININE 0.99 mg/dL (0.70-1.30); POTASSIUM 4.1 mmol/L (3.5-5.1); SGOT/AST 8 IU/L (3-35); SGPT/ALT 12 U/L (12-78); SODIUM 139 mmol/L (136-145); TOTAL PROTEIN 7.2 gm/dL (6.4-8.2)
[2018-10-17 08:00] VITALS: BP 134/54
--- NOTE | 2018-10-17 08:00 | NUR ---
PATIENT SITTING UP IN BED. 02 IN USE VIA 6LNC. POX 98-99% VIA 6L. LUNGS DIMINISHED WITH WHEEZES. PRODUCTIVE COUGH AT TIMES PER PT. SONAM CONTINUE TO MONITOR. VSS. CALL LIGHT WITHIN REACH.
--- NOTE | 2018-10-17 11:04 | NUR ---
Snowblower Mechanic in to talk to patient. Patient states lives at HOME with . There are 3 steps in the home. Physician: NAT Pharmacy: [facility] Home health services: NONE Patient's level of ADLs: INDEPENDENT Patient has working utilities: YES DME: BIPAP, OXYGEN AND PORTABLE TANKS, NEBULIZER Follow-up physician's appointment after d/c: WILL BE MADE BY HOSPITALIST NURSE DIRECTOR ON DISCHARGE Does patient want to access PORTAL?: NO Discharge plan PT STATES HE LIVES AT HOME WITH HIS AND IS INDEPENDENT IN HIS CARE. DENIES HOME NEEDS ON DISCHARGE. PT STATES HE WILL HAVE A RIDE HOME. WILL CONTINUE TO FOLLOW. . YADI MCKNIGHT
--- NOTE | 2018-10-17 11:22 | NUR ---
IN TO SEE PATIENT.
[2018-10-17 12:00] VITALS: BP 138/59
[2018-10-17 16:00] VITALS: BP 152/53
[2018-10-17 20:00] VITALS: BP 149/58
[2018-10-18] VITALS: BP 120/54
[2018-10-18 06:27] LABS: BASO % 0.2 % (0.0-1.0); HEMATOCRIT 36.2 % (42.0-52.0); HEMOGLOBIN 9.6 g/dl (14.0-18.0); LYMPH # 1.2 10*3/uL (1.3-4.4); LYMPH % 10.1 % (27.0-41.0); MEAN CELL VOLUME 80.6 fl (80.0-94.0); MEAN CORPUSCULAR HGB 21.4 pg (27.0-31.0); MEAN CORPUSCULAR HGB CONC 26.5 g/dl (33.0-37.0); MEAN PLATELET VOLUME 11.1 fl (9.6-12.3); MONO # 0.2 10*3/uL (0.1-1.0); MONO % 1.8 % (3.0-9.0); NEUT # 10.7 10*3/uL (2.3-7.9); NEUT % 87.5 % (47.0-73.0); PLATELET COUNT AUTOMATED 305 10*3/uL (130-400); RED BLOOD COUNT 4.49 10*6/uL (4.50-5.90); RED CELL DISTRI WIDTH 18.8 % (0-14.5); WHITE BLOOD COUNT 12.2 10*3/uL (4.8-10.8)
[2018-10-18 06:37] LABS: BUN 23 mg/dl (7-24); CHLORIDE 97 mmol/L (98-107); CREATININE 0.86 mg/dL (0.70-1.30); POTASSIUM 3.9 mmol/L (3.5-5.1); SODIUM 138 mmol/L (136-145)
[2018-10-18 08:00] VITALS: BP 141/78
--- NOTE | 2018-10-18 11:31 | NUR ---
IN TO SEE PATIENT.
--- NOTE | 2018-10-18 12:28 | NUR ---
Discharge instructions reviewed with patient/family. Patient receptive and verbalizes understanding. Follow-up care arranged. Written instructions given to patient/family. GIANNA PANDYA.
[2018-10-28] MEDS ORDERED: PREDNISONE10 MG PO (11:14)
[2018-10-28] MEDS ORDERED: DOXYCYCLINE100 MG PO (11:14)
[2019-02-11] MEDS ORDERED: COREG25 MG PO (21:16)
[2019-02-14] MEDS ORDERED: DOXYCYCLINE100 M3 PO (11:09)
[2019-02-14] MEDS ORDERED: CARVEDILOL25 MG PO (11:09)
[2019-02-14] MEDS ORDERED: PREDNISONE10 MG PO (11:10)
== END 2018-10-18 12:28 | disposition home or self-care (01) | DRG 190 ==
LOC: ED 14:37 → 5E 15:12 → EDHOLD 15:12 → 5E 15:31
PROVIDERS: Emergency Medicine; Internal Medicine Nephrology; ADMIT Internal Medicine
DX: J44.1 Chronic obstructive pulmonary disease with (acute) exacerbation (principal); I50.33 Acute on chronic diastolic (congestive) heart failure; E87.3 Alkalosis; I42.0 Dilated cardiomyopathy; J96.12 Chronic respiratory failure with hypercapnia; J45.901 Unspecified asthma with (acute) exacerbation; Z68.42 Body mass index [BMI] 45.0-49.9, adult; J96.11 Chronic respiratory failure with hypoxia; E11.65 Type 2 diabetes mellitus with hyperglycemia; E66.01 Morbid (severe) obesity due to excess calories; I48.2 Chronic atrial fibrillation; M10.9 Gout, unspecified; I27.22 Pulmonary hypertension due to left heart disease; E78.5 Hyperlipidemia, unspecified; G47.33 Obstructive sleep apnea (adult) (pediatric); F17.210 Nicotine dependence, cigarettes, uncomplicated; R74.8 Abnormal levels of other serum enzymes; R79.89 Other specified abnormal findings of blood chemistry; E55.9 Vitamin D deficiency, unspecified; M19.90 Unspecified osteoarthritis, unspecified site; D63.8 Anemia in other chronic diseases classified elsewhere; Z99.81 Dependence on supplemental oxygen; Z79.01 Long term (current) use of anticoagulants; Z79.899 Other long term (current) drug therapy; Z79.4 Long term (current) use of insulin; Z79.84 Long term (current) use of oral hypoglycemic drugs; Z87.01 Personal history of pneumonia (recurrent); Z83.3 Family history of diabetes mellitus; Z80.8 Family history of malignant neoplasm of other organs or systems

== ENCOUNTER 2018-10-29 13:12 | Emergency (ER) | payer OTHER ==
[~2018-10-29] VITALS: Ht 177.8 cm; Wt 142.0 kg
--- NOTE | ~2018-10-29 | EKG ---
[place], [place] ELECTROCARDIOGRAM REPORT NAME: KOJO BORJAS UNIT #: [id number] ROOM: DOCTOR: ANAMARIA DRAFT REPORT BIRTHDATE: [birth year] [facility] Test Date: 2018-10-29 Test Time: 13:44:45 Pat Name: KOJO BORJAS Department: Room: Gender: Nurse Instructor: : 1965 Requested By: JESSICA MUKHERJEE Order Number: [id number] Reading MD: Measurements Intervals [place] Rate: 55 P: [place]: QRS: 51 QRSD: 112 T: 51 QT: 392 QTc: 375 Interpretive Statements Atrial fibrillation Borderline intraventricular conduction delay Low voltage, extremity leads Minimal ST depression, anterior leads Compared to ECG 10/16/2018 14:39:24 Ventricular premature complex(es) no longer present ST (T wave) deviation still present CM:EKGRPT:ELECTROCARDIOGRAM REPORT [id number] 1049 JESSICA CONRAD DRAFT REPORT JESSICA MUKHERJEE M.D.
[~2018-10-29 13:12] MED LIST changes: +DOXYCYCLINE100 MG PO
[2018-10-29 13:15] VITALS: BP 144/59
[2019-02-11] MEDS ORDERED: COREG25 MG PO (21:16)
[2019-02-14] MEDS ORDERED: DOXYCYCLINE100 M3 PO (11:09)
[2019-02-14] MEDS ORDERED: CARVEDILOL25 MG PO (11:09)
[2019-02-14] MEDS ORDERED: PREDNISONE10 MG PO (11:10)
== END 2018-10-29 14:45 | disposition home or self-care (01) ==
LOC: ED 13:12
DX: R00.2 Palpitations (principal); I48.91 Unspecified atrial fibrillation; J44.9 Chronic obstructive pulmonary disease, unspecified; E11.9 Type 2 diabetes mellitus without complications; I50.30 Unspecified diastolic (congestive) heart failure; E78.5 Hyperlipidemia, unspecified; E66.01 Morbid (severe) obesity due to excess calories; F17.200 Nicotine dependence, unspecified, uncomplicated; Z79.84 Long term (current) use of oral hypoglycemic drugs; Z79.899 Other long term (current) drug therapy; Z79.2 Long term (current) use of antibiotics

== ENCOUNTER 2018-12-17 13:40 | Emergency (ER) | payer OTHER ==
[~2018-12-17] VITALS: Ht 177.8 cm; Wt 141.1 kg
--- NOTE | ~2018-12-17 | EKG ---
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
[2018-12-17 13:41] VITALS: BP 138/66
[2018-12-17 14:57] LABS: BASO # 0.1 10*3/uL (0.0-0.1); BASO % 0.7 % (0.0-1.0); EOS # 0.2 10*3/uL (0.0-0.4); EOS % 1.4 % (1.0-4.0); HEMATOCRIT 39.2 % (42.0-52.0); HEMOGLOBIN 10.3 g/dl (14.0-18.0); LYMPH # 3.6 10*3/uL (1.3-4.4); LYMPH % 25.5 % (27.0-41.0); MEAN CELL VOLUME 84.8 fl (80.0-94.0); MEAN CORPUSCULAR HGB 22.3 pg (27.0-31.0); MEAN CORPUSCULAR HGB CONC 26.3 g/dl (33.0-37.0); MEAN PLATELET VOLUME 11.7 fl (9.6-12.3); MONO # 0.9 10*3/uL (0.1-1.0); MONO % 6.7 % (3.0-9.0); NEUT # 9.1 10*3/uL (2.3-7.9); NEUT % 65.1 % (47.0-73.0); PLATELET COUNT AUTOMATED 327 10*3/uL (130-400); RED BLOOD COUNT 4.62 10*6/uL (4.50-5.90); RED CELL DISTRI WIDTH 18.8 % (0-14.5)
[2018-12-17 15:27] LABS: ALBUMIN 3.2 gm/dl (3.1-4.5); ALKALINE PHOSPHATASE 119 U/L (45-117); BUN 12 mg/dl (7-24); CHLORIDE 98 mmol/L (98-107); CREATININE 1.01 mg/dL (0.70-1.30); POTASSIUM 5.2 mmol/L (3.5-5.1); SGOT/AST 61 IU/L (3-35); SGPT/ALT 21 U/L (12-78); SODIUM 139 mmol/L (136-145); TOTAL PROTEIN 7.8 gm/dL (6.4-8.2)
[2018-12-17 15:29] LABS: TROPONIN I < 0.015 ng/ml (<0.045)
[2018-12-17] MEDS ORDERED: Ipratropium Brom3 ML INH ×2 (17:39→18:01)
[2019-02-11] MEDS ORDERED: COREG25 MG PO (21:16)
[2019-02-14] MEDS ORDERED: CARVEDILOL25 MG PO (11:09)
[2019-02-14] MEDS ORDERED: DOXYCYCLINE100 M3 PO (11:09)
[2019-02-14] MEDS ORDERED: PREDNISONE10 MG PO (11:10)
== END 2018-12-17 18:36 | disposition home or self-care (01) ==
LOC: ED 13:40
PROVIDERS: Internal Medicine
DX: J44.1 Chronic obstructive pulmonary disease with (acute) exacerbation (principal); M54.5 Low back pain; R19.7 Diarrhea, unspecified; I11.0 Hypertensive heart disease with heart failure; I50.30 Unspecified diastolic (congestive) heart failure; E11.9 Type 2 diabetes mellitus without complications; I48.91 Unspecified atrial fibrillation; E78.5 Hyperlipidemia, unspecified; E66.01 Morbid (severe) obesity due to excess calories; F17.200 Nicotine dependence, unspecified, uncomplicated; Z79.899 Other long term (current) drug therapy; Z79.4 Long term (current) use of insulin; Z79.84 Long term (current) use of oral hypoglycemic drugs

== ENCOUNTER → 2019-02-20 | Outpatient (CLI) | payer OTHER ==
[~2019-02-20] MED LIST changes: +ANTIFUNGAL113 GM T; +COREG25 MG PO; +DILTIAZEM 24HR360 MG PO; +Ipratropium Brom3 ML INH; +JARDIANCE25 MG PO; +MAPAP ARTHRITI650 MG PO; +VENTOLIN 02.5 MG/3 M INH
[2019-02-20 17:15] LABS: BUN 20 mg/dl (7-24); CHLORIDE 97 mmol/L (98-107); CREATININE 1.16 mg/dL (0.70-1.30); POTASSIUM 4.2 mmol/L (3.5-5.1); SODIUM 139 mmol/L (136-145)
== END | disposition home or self-care (01) ==
LOC: LAB 16:33
PROVIDERS: Internal Medicine Critical Care Medicine
DX: I11.0 Hypertensive heart disease with heart failure (principal); I50.9 Heart failure, unspecified

== ENCOUNTER 2019-03-16 10:39 | Inpatient (IN) | payer OTHER ==
[2019-03-16] VITALS (10 sets, daily range): BP systolic 122–166; BP diastolic 54–88
[~2019-03-16] VITALS: Ht 177.8 cm; Wt 134.9 kg
--- NOTE | ~2019-03-16 | EKG ---
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
--- NOTE | ~2019-03-16 | CON ---
[place], [place] REPORT OF CONSULTATION NAME: KOJO BORJAS UNIT #: [id number] ROOM: 403 DOCTOR: JESS MELCHOR MD BIRTHDATE: [birth year] DOS: 03/17/2019 HISTORY OF PRESENT ILLNESS: This is a 53-year-old -Armenian man with a history of morbid obesity, chronic atrial fibrillation. He had atrial flutter but 15-20 years ago and he refused treatment at that time. Subsequently, changed into atrial fibrillation, which he has had ever since. He has COPD that has caused chronic respiratory failure and is on oxygen at all times. He also has had right heart failure in the past, type 2 diabetes mellitus, hyperlipidemia, and obstructive sleep apnea. He has had a left eye surgery and also foot surgery for a fracture. SOCIAL HISTORY: Lives at home. He does not drink, but he was a heavy drinker in the very remote past, may be 1-2 beers a year. He smokes 1 pack of cigarettes per day. He came to the hospital because of palpitations. His heart rate was seemed to be racing, but he did not have any dizziness, chest pain or worsening of shortness of breath or loss of consciousness with this and had not had any swelling of the lower extremities. Apparently, he had misplaced his digoxin for a few days prior to this admission and had not been taking it. He is not very active but does walk around in the house with the oxygen on. PHYSICAL EXAMINATION: GENERAL: This is a patient who is obese. He is alert, oriented. He has BiPAP on now. He is not cyanotic, not jaundiced, but he is mildly tachypneic. VITAL SIGNS: Temperature 98.2 degrees, pulse is 84 and irregular, blood pressure 116/63. CARDIOVASCULAR: JVP appears to be normal. AJR is difficult to assess. No bruit in the neck. There is no cardiomegaly, no murmurs are present. EXTREMITIES: He has no edema at all in the lower extremities and pedal pulses are palpable. RESPIRATORY: Breath sounds are at least moderate to severely reduced bilaterally with crackles and rhonchi, but no wheezing. ABDOMEN: Large and nontender. LABORATORY DATA: ECG had shown atrial fibrillation with tachycardia, maximum rate on one of the ECGs is 103. Monitor had displayed somewhat faster rate. Chest x-ray was read as showing mild pulmonary congestion. Hemoglobin 9.3 g/dL, which is chronic. Potassium 3.5, BUN 8, creatinine 0.74. IMPRESSION: 1. Chronic atrial fibrillation, now with a controlled ventricular rate. Currently, he is on carvedilol 25 mg b.i.d., which should be continued along with the digoxin and if these two medicines do not control the ventricular rate, the small dose of diltiazem or verapamil would be useful addition. 2. He has pulmonary hypertension, but no clinical evidence of right-sided decompensation. RECOMMENDATIONS: As above. [place], [place] REPORT OF CONSULTATION NAME: KOJO BORJAS UNIT #: [id number] ROOM: 403 DOCTOR: JILL CISNEROS,JESS BIRTHDATE: [birth year] I thank you for this consult. JESS MELCHOR MD CM:CONSTR:REPORT OF CONSULTATION 1045 04/16/19 1428 interface
--- NOTE | ~2019-03-16 | EKG ---
[place], [place] ELECTROCARDIOGRAM REPORT NAME: KOJO BORJAS UNIT #: [id number] ROOM: 403 DOCTOR: ANAMARIA DRAFT REPORT BIRTHDATE: [birth year] 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
--- NOTE | ~2019-03-16 | EKG ---
[place], [place] ELECTROCARDIOGRAM REPORT NAME: KOJO BORJAS UNIT #: [id number] ROOM: 403 DOCTOR: ANAMARIA DRAFT REPORT BIRTHDATE: [birth year] [facility] Test Date: 2019-03-16 Test Time: 14:40:56 Pat Name: KOJO BORJAS Department: Room: 403 Gender: M Hand Tapper: Aranza Forbes : 1965 Requested By: LINK MILLER Order Number: [id number] Reading MD: Gaviota Raza MD Measurements Intervals [place] Rate: 99 P: AL: QRS: 71 QRSD: 109 T: 64 QT: 360 QTc: 462 Interpretive Statements Atrial fibrillation Ventricular premature complex Low voltage, extremity leads Compared to ECG 02/11/2019 20:36:29 Early repolarization no longer present Electronically Signed On 03-18-2019 7:55:14 PDT by Gaviota Raza MD CM:EKGRPT:ELECTROCARDIOGRAM REPORT [id number] LINK CONRAD DRAFT REPORT LINK MILLER MD
[~2019-03-16 10:39] MED LIST changes: -ANTIFUNGAL113 GM T; -DILTIAZEM 24HR360 MG PO; -JARDIANCE25 MG PO; -MAPAP ARTHRITI650 MG PO; -VENTOLIN 02.5 MG/3 M INH
[2019-03-16 10:54] LABS: BASO # 0.1 10*3/uL (0.0-0.1); BASO % 0.6 % (0.0-1.0); EOS # 0.2 10*3/uL (0.0-0.4); EOS % 2.1 % (1.0-4.0); HEMATOCRIT 38.8 % (42.0-52.0); HEMOGLOBIN 10.3 g/dl (14.0-18.0); LYMPH # 2.2 10*3/uL (1.3-4.4); LYMPH % 19.8 % (27.0-41.0); MEAN CELL VOLUME 80.8 fl (80.0-94.0); MEAN CORPUSCULAR HGB 21.5 pg (27.0-31.0); MEAN CORPUSCULAR HGB CONC 26.5 g/dl (33.0-37.0); MEAN PLATELET VOLUME 10.3 fl (9.6-12.3); MONO # 0.6 10*3/uL (0.1-1.0); MONO % 5.1 % (3.0-9.0); NEUT # 7.9 10*3/uL (2.3-7.9); PLATELET COUNT AUTOMATED 493 10*3/uL (130-400); RED CELL DISTRI WIDTH 18.7 % (0-14.5)
[2019-03-16 11:05] LABS: ACT PARTIAL THROMBO TIME 34.7 SECONDS (20.0-32.1); INTERNATIONAL NORM RATIO 1.1 (2.0-3.5)
[2019-03-16 11:10] LABS: ALBUMIN 3.3 gm/dl (3.1-4.5); ALKALINE PHOSPHATASE 123 U/L (45-117); BUN 7 mg/dl (7-24); CHLORIDE 101 mmol/L (98-107); CREATININE 0.87 mg/dL (0.70-1.30); POTASSIUM 3.8 mmol/L (3.5-5.1); SGOT/AST 10 IU/L (3-35); SGPT/ALT 14 U/L (12-78); SODIUM 141 mmol/L (136-145); TOTAL PROTEIN 7.3 gm/dL (6.4-8.2)
[2019-03-16 11:14] LABS: TROPONIN I < 0.015 ng/ml (<0.045)
--- NOTE | 2019-03-16 12:37 | NUR ---
A 53, admitted to , under the services of DOUGLAS Palm DO with a diagnosis of AFIB WITH RVR. Chief complaint is 4-5LB WEIGHT GAIN. Patient arrived via ambulance from ER. Monitor applied. Initial assessment completed. Vital signs taken and recorded. DOUGLAS PALM DO notified of admission to the unit. Orders received. See assessment for past medical history, medications and allergies. Patient and/or family oriented to unit. [facility] visitation policy reviewed. Clothing/patient valuable form completed. WAYNE VICTOR
[2019-03-16] MEDS ORDERED: COREG25 MG PO (13:20)
[2019-03-16] MEDS ORDERED: JARDIANCE25 MG PO (13:26)
[2019-03-16] MEDS ORDERED: DILTIAZEM 24HR360 MG PO (13:31)
[2019-03-16] MEDS ORDERED: MAPAP ARTHRITI650 MG PO (13:33)
[2019-03-16] MEDS ORDERED: CYCLOBENZAPRINE10 MG PO (13:36)
--- NOTE | 2019-03-16 13:37 | NUR ---
NOTIFIED RESPIRATORY THAT PT IS REQUESTING BIPAP SOMETIME SOON SO THAT HE CAN TAKE A NAP.
[2019-03-16] MEDS ORDERED: GLUCOTROL10 MG PO (13:38)
--- NOTE | 2019-03-16 13:42 | NUR ---
INFORMED OF HOME MEDICATION ARE VERIFIED.
--- NOTE | 2019-03-16 13:47 | NUR ---
CONSULT CALLED TO DR MELCHOR ANSWERING SERVICE. DR FOLEY TAKING CALLS. NEW ORDERS RECEIVED FROM DR FOLEY TO GIVE PT COREG 25 MG PO IN AM AND COREG 12.5 MG PO AT HS.
--- NOTE | 2019-03-16 18:44 | NUR ---
PT RESTING IN BED WITH NO S/S OF DISTRESS AT THIS TIME. CARDIZEM DRIP INFUSING INTO IV SITE IN LEFT ANTECUBITAL. HR BETWEEN 90S-100S. BLOOD PRESSURES STABLE. NO COMPLAINTS VOICED BY PT. WILL CONTINUE TO MONITOR. CALL LIGHT IN REACH.
--- NOTE | 2019-03-16 20:01 | NUR ---
24 HOUR CHART CHECK COMPLETE.
--- NOTE | 2019-03-16 22:34 | NUR ---
RETAIL SALES ADVISOR NOTIFIED ME THAT PTS HR IN 60S-70S. WENT TO CHECK ON PT AND HR BACK IN THE 80S. ANTELMO ARGUETAIP STILL RUNNING AT THIS TIME. WILL CONTINUE TO MONITOR.
[2019-03-17] VITALS (7 sets, daily range): BP systolic 114–148; BP diastolic 51–78
[2019-03-17 06:07] LABS: BASO # 0.1 10*3/uL (0.0-0.1); BASO % 0.6 % (0.0-1.0); EOS # 0.3 10*3/uL (0.0-0.4); EOS % 2.3 % (1.0-4.0); HEMOGLOBIN 9.3 g/dl (14.0-18.0); LYMPH # 2.8 10*3/uL (1.3-4.4); LYMPH % 25.4 % (27.0-41.0); MEAN CELL VOLUME 80.6 fl (80.0-94.0); MEAN CORPUSCULAR HGB 21.4 pg (27.0-31.0); MEAN CORPUSCULAR HGB CONC 26.6 g/dl (33.0-37.0); MEAN PLATELET VOLUME 10.6 fl (9.6-12.3); MONO # 0.8 10*3/uL (0.1-1.0); NEUT % 64.4 % (47.0-73.0); PLATELET COUNT AUTOMATED 456 10*3/uL (130-400); RED BLOOD COUNT 4.34 10*6/uL (4.50-5.90); RED CELL DISTRI WIDTH 18.6 % (0-14.5); WHITE BLOOD COUNT 10.9 10*3/uL (4.8-10.8)
[2019-03-17 06:35] LABS: ALBUMIN 2.9 gm/dl (3.1-4.5); ALKALINE PHOSPHATASE 100 U/L (45-117); BUN 8 mg/dl (7-24); CHLORIDE 100 mmol/L (98-107); CHOLESTEROL 122 mg/dL (<200); CREATININE 0.74 mg/dL (0.70-1.30); HDL CHOLESTEROL 30 mg/dl (40-60); PHOSPHOROUS 3.7 mg/dL (2.5-4.9); POTASSIUM 3.5 mmol/L (3.5-5.1); SGOT/AST 6 IU/L (3-35); SGPT/ALT 11 U/L (12-78); SODIUM 140 mmol/L (136-145); TOTAL PROTEIN 6.2 gm/dL (6.4-8.2)
[2019-03-17 06:39] LABS: LDL CHOLESTEROL 68 mg/dL (9-159); TRIGLYCERIDES 120 mg/dl (<150); VLDL CHOLESTEROL 24 mg/dL (6-40)
--- NOTE | 2019-03-17 08:00 | NUR ---
TOOK OVER CARE OF PT AT THIS TIME. PT RESTING IN BED, ALERT ORIENTED AND PLEASANT. RESPIRATIONS UNLABORED ON 6L NC. POX WNL. VITALS WNL. HR AFIB RATE CONTROLLED 70S-80S. NO C/O CP. ASSESMSENT COMPLETE. NO NEW ABNORMALITIES NOTED. WILL CONTINUE TO MONITOR. CALL LIGHT IN REACH.
--- NOTE | 2019-03-17 08:15 | NUR ---
SPOKE WITH DR FOLEY REGARDING THE DOSAGE OF PT COREG. CLARIFIED THAT PT IS TO TAKE TWO TABS OF [address] SANCHEZ NOTIFIED.
--- NOTE | 2019-03-17 14:30 | NUR ---
DR MELCHOR IS IN TO SEE PT AT THIS TIME.
--- NOTE | 2019-03-17 17:30 | NUR ---
EVENING MEDICATIONS GIVEN TO PT AT THIS TIME. 3 UNITS HUMALOG GIVEN DUE TO A BLOOD SUGAR OF 165. PT TOLERATED WELL. NO OTHER COMPLAINTS VOICED BY PT AT THIS TIME. WILL CONTINUE TO MONITOR. CALL LIGHT IN REACH.
--- NOTE | 2019-03-17 19:09 | NUR ---
24 HOUR CHART CHECK COMPLETE.
--- NOTE | 2019-03-17 20:15 | NUR ---
Patient resting quietly with no c/o discomfort. Respirations easy and regular. BIPAP on. 28/06 55%. Vital signs stable. No overt distress. LI JONES
[2019-03-18] VITALS: BP 141/97
--- NOTE | 2019-03-18 | NUR ---
Patient sleeping. BIPAP in place, settings 18, 50%. Respirations relaxed and easy. No signs of discomfort or distress. Siderails up X2. Wheelmarias on. LI JONES
[2019-03-18 05:52] LABS: BASO # 0.1 10*3/uL (0.0-0.1); BASO % 0.5 % (0.0-1.0); EOS # 0.2 10*3/uL (0.0-0.4); EOS % 1.9 % (1.0-4.0); HEMATOCRIT 36.1 % (42.0-52.0); HEMOGLOBIN 9.4 g/dl (14.0-18.0); LYMPH # 2.8 10*3/uL (1.3-4.4); LYMPH % 27.5 % (27.0-41.0); MEAN CELL VOLUME 80.4 fl (80.0-94.0); MEAN CORPUSCULAR HGB 20.9 pg (27.0-31.0); MEAN PLATELET VOLUME 9.9 fl (9.6-12.3); MONO # 0.6 10*3/uL (0.1-1.0); MONO % 6.2 % (3.0-9.0); NEUT # 6.5 10*3/uL (2.3-7.9); NEUT % 63.6 % (47.0-73.0); PLATELET COUNT AUTOMATED 441 10*3/uL (130-400); RED BLOOD COUNT 4.49 10*6/uL (4.50-5.90); RED CELL DISTRI WIDTH 18.6 % (0-14.5); WHITE BLOOD COUNT 10.2 10*3/uL (4.8-10.8)
[2019-03-18 06:14] LABS: BUN 8 mg/dl (7-24); CHLORIDE 100 mmol/L (98-107); CREATININE 0.69 mg/dL (0.70-1.30); POTASSIUM 3.6 mmol/L (3.5-5.1); SODIUM 140 mmol/L (136-145)
--- NOTE | 2019-03-18 07:45 | NUR ---
Shift chart check completed.
[2019-03-18 08:00] VITALS: BP 142/54
--- NOTE | 2019-03-18 08:30 | NUR ---
Ink Grinder in to talk to patient. Patient states lives at home with friend. There are few steps in the home. Physician: nuria menard [facility] Home health services: none Patient's level of ADLs: INDEPENDENT Patient has working utilities: all working DME: home oxygen from [facility] patient Follow-up physician's appointment after d/c: will be made by hospitalist nurse director upon discharge Does patient want to access PORTAL?: no Discharge plan discussed with patient, patient lives at home, is independe int adls and ambulation, patient states he will be suzi ghome when able and dneies any home needs. EAN MAX
[2019-03-18] MEDS ORDERED: B12,B-12,B 12500 MC1 PO (09:08)
--- NOTE | 2019-03-18 09:49 | NUR ---
Hep Lock X2 discontinued. Site asymptomatic. Pressure applied. Sterile dressing applied. Discharge instructions reviewed with patient/family. Patient receptive and verbalizes understanding. Follow-up care arranged. Written instructions given to patient/family. TAKEN OUT VIA WHEELCHAIR ALEJANDRINA QUINTANILLA
--- NOTE | 2019-03-18 09:57 | NUR ---
LOGGING OPERATIONS INSPECTOR MAAME MADE AWARE OF DISCHARGE
[2019-05-03] MEDS ORDERED: VENTOLIN 02.5 MG/3 M INH (15:48)
[2019-05-03] MEDS ORDERED: ANTIFUNGAL113 GM T (15:51)
== END 2019-03-18 09:49 | disposition home or self-care (01) | DRG 309 ==
LOC: ED 10:39 → 4E 11:40 → EDHOLD 11:40 → 4E 12:11
PROVIDERS: Emergency Medicine; Internal Medicine; Student in an Organized Health Care Education/Training Program; ADMIT Emergency Medicine
PROC: 5A09357 Assistance with Respiratory Ventilation, Less than 24 Consecutive Hours, Continuous Positive Airway Pressure (ICD-10-PCS; principal; 2019-03-17)
PROC: 5A09357 Assistance with Respiratory Ventilation, Less than 24 Consecutive Hours, Continuous Positive Airway Pressure (ICD-10-PCS; 2019-03-18)
DX: I48.91 Unspecified atrial fibrillation (principal); J96.11 Chronic respiratory failure with hypoxia; E44.1 Mild protein-calorie malnutrition; D68.69 Other thrombophilia; I24.8 Other forms of acute ischemic heart disease; I50.32 Chronic diastolic (congestive) heart failure; J96.12 Chronic respiratory failure with hypercapnia; Z68.41 Body mass index [BMI] 40.0-44.9, adult; D72.810 Lymphocytopenia; D72.829 Elevated white blood cell count, unspecified; J44.9 Chronic obstructive pulmonary disease, unspecified; M1A.9XX0 Chronic gout, unspecified, without tophus (tophi); E53.8 Deficiency of other specified B group vitamins; E78.2 Mixed hyperlipidemia; E66.01 Morbid (severe) obesity due to excess calories; G47.33 Obstructive sleep apnea (adult) (pediatric); K59.00 Constipation, unspecified; D64.9 Anemia, unspecified; I27.20 Pulmonary hypertension, unspecified; I50.812 Chronic right heart failure; R79.89 Other specified abnormal findings of blood chemistry; E83.41 Hypermagnesemia; D47.3 Essential (hemorrhagic) thrombocythemia; F17.210 Nicotine dependence, cigarettes, uncomplicated; E11.9 Type 2 diabetes mellitus without complications; Z99.81 Dependence on supplemental oxygen; Z79.4 Long term (current) use of insulin; Z71.6 Tobacco abuse counseling; Z79.01 Long term (current) use of anticoagulants; Z80.8 Family history of malignant neoplasm of other organs or systems; Z83.3 Family history of diabetes mellitus; Z84.89 Family history of other specified conditions; Z83.79 Family history of other diseases of the digestive system; Z81.1 Family history of alcohol abuse and dependence; Z79.899 Other long term (current) drug therapy

== ENCOUNTER 2019-05-19 14:28 | Emergency (ER) | payer OTHER ==
[~2019-05-19] VITALS: Wt 134.8 kg
[~2019-05-19 14:28] MED LIST changes: +ANTIFUNGAL113 GM T; +DILTIAZEM 24HR360 MG PO; +JARDIANCE25 MG PO; +MAPAP ARTHRITI650 MG PO; +VENTOLIN 02.5 MG/3 M INH
[2019-05-19 14:29] VITALS: BP 146/76
[2019-05-19 15:04] LABS: BASO # 0.1 10*3/uL (0.0-0.1); BASO % 0.7 % (0.0-1.0); EOS # 0.2 10*3/uL (0.0-0.4); EOS % 1.9 % (1.0-4.0); HEMATOCRIT 35.4 % (42.0-52.0); HEMOGLOBIN 9.5 g/dl (14.0-18.0); LYMPH # 3.2 10*3/uL (1.3-4.4); LYMPH % 25.5 % (27.0-41.0); MEAN CORPUSCULAR HGB 21.7 pg (27.0-31.0); MEAN CORPUSCULAR HGB CONC 26.8 g/dl (33.0-37.0); MEAN PLATELET VOLUME 10.7 fl (9.6-12.3); MONO # 0.8 10*3/uL (0.1-1.0); MONO % 6.5 % (3.0-9.0); NEUT % 65.1 % (47.0-73.0); PLATELET COUNT AUTOMATED 302 10*3/uL (130-400); RED BLOOD COUNT 4.37 10*6/uL (4.50-5.90); RED CELL DISTRI WIDTH 18.2 % (0-14.5); WHITE BLOOD COUNT 12.4 10*3/uL (4.8-10.8)
[2019-05-19 15:14] LABS: ACT PARTIAL THROMBO TIME 33.5 SECONDS (20.0-32.1); INTERNATIONAL NORM RATIO 1.1 (2.0-3.5)
[2019-05-19 15:28] LABS: BILIRUBIN NEGATIVE (NEGATIVE); BLOOD NEGATIVE (NEGATIVE); CLARITY SL CLOUDY (CLEAR); COLOR YELLOW (YELLOW); GLUCOSE 3+ (NEGATIVE); KETONE NEGATIVE (NEGATIVE); LEUKO ESTERASE NEGATIVE (NEGATIVE); NITRITE NEGATIVE (NEGATIVE); PH 7.5 (5.0-9.0); SPECIFIC GRAVITY 1.015 (1.005-1.030); UROBILINOGEN 0.2 E.U./dl (0.2-1.0)
[2019-05-19 15:36] LABS: ALBUMIN 3.4 gm/dl (3.1-4.5); ALKALINE PHOSPHATASE 114 U/L (45-117); BUN 9 mg/dl (7-24); CHLORIDE 97 mmol/L (98-107); CREATININE 0.86 mg/dL (0.70-1.30); LIPASE 213 U/L (73-393); POTASSIUM 3.6 mmol/L (3.5-5.1); SGPT/ALT 13 U/L (12-78); SODIUM 139 mmol/L (136-145); TOTAL PROTEIN 7.4 gm/dL (6.4-8.2)
[2019-05-19 15:42] LABS: EPITHELIAL CELLS 0-2; HYALINE CAST 0-2
[2019-05-19 15:51] LABS: SGOT/AST < 3 IU/L (3-35); TROPONIN I < 0.015 ng/ml (<0.045)
== END 2019-05-19 16:24 | disposition home or self-care (01) ==
LOC: ED 14:28
PROVIDERS: Physician Assistant
DX: I11.0 Hypertensive heart disease with heart failure (principal); I50.9 Heart failure, unspecified; R63.5 Abnormal weight gain; J44.9 Chronic obstructive pulmonary disease, unspecified; F17.200 Nicotine dependence, unspecified, uncomplicated; Z79.4 Long term (current) use of insulin; Z79.899 Other long term (current) drug therapy

== ENCOUNTER 2019-07-19 11:43 | Emergency (ER) | payer OTHER ==
[~2019-07-19] VITALS: Ht 177.8 cm; Wt 139.3 kg
[2019-07-19 11:48] VITALS: BP 127/63
[2019-07-19 12:05] LABS: BASO # 0.1 10*3/uL (0.0-0.1); BASO % 0.8 % (0.0-1.0); EOS # 0.3 10*3/uL (0.0-0.4); EOS % 2.5 % (1.0-4.0); HEMATOCRIT 35.6 % (42.0-52.0); HEMOGLOBIN 9.1 g/dl (14.0-18.0); LYMPH # 2.6 10*3/uL (1.3-4.4); LYMPH % 22.8 % (27.0-41.0); MEAN CELL VOLUME 80.4 fl (80.0-94.0); MEAN CORPUSCULAR HGB 20.5 pg (27.0-31.0); MEAN CORPUSCULAR HGB CONC 25.6 g/dl (33.0-37.0); MEAN PLATELET VOLUME 10.1 fl (9.6-12.3); MONO # 0.7 10*3/uL (0.1-1.0); MONO % 5.8 % (3.0-9.0); NEUT # 7.7 10*3/uL (2.3-7.9); NEUT % 67.7 % (47.0-73.0); PLATELET COUNT AUTOMATED 375 10*3/uL (130-400); RED BLOOD COUNT 4.43 10*6/uL (4.50-5.90); RED CELL DISTRI WIDTH 18.8 % (0-14.5); WHITE BLOOD COUNT 11.3 10*3/uL (4.8-10.8)
[2019-07-19 12:17] LABS: ACT PARTIAL THROMBO TIME 34.5 SECONDS (20.0-32.1); INTERNATIONAL NORM RATIO 1.1 (2.0-3.5)
[2019-07-19 12:22] LABS: ALBUMIN 3.4 gm/dl (3.1-4.5); ALKALINE PHOSPHATASE 121 U/L (45-117); BUN 12 mg/dl (7-24); CHLORIDE 95 mmol/L (98-107); CREATININE 1.02 mg/dL (0.70-1.30); POTASSIUM 3.9 mmol/L (3.5-5.1); SGOT/AST 8 IU/L (3-35); SGPT/ALT 14 U/L (12-78); SODIUM 139 mmol/L (136-145); TOTAL PROTEIN 7.4 gm/dL (6.4-8.2)
[2019-07-19 12:24] LABS: TROPONIN I < 0.015 ng/ml (<0.045)
[2019-07-19] MEDS ORDERED: LASIX40 MG PO (13:37)
== END 2019-07-19 13:50 | disposition home or self-care (01) ==
LOC: ED 11:43
PROVIDERS: Family Medicine
DX: I11.0 Hypertensive heart disease with heart failure (principal); I50.33 Acute on chronic diastolic (congestive) heart failure; I48.91 Unspecified atrial fibrillation; J44.9 Chronic obstructive pulmonary disease, unspecified; E11.9 Type 2 diabetes mellitus without complications; E78.5 Hyperlipidemia, unspecified; E66.01 Morbid (severe) obesity due to excess calories; Z87.891 Personal history of nicotine dependence; Z79.899 Other long term (current) drug therapy; Z79.4 Long term (current) use of insulin

== ENCOUNTER → 2019-07-24 | Outpatient (CLI) | payer OTHER ==
[~2019-07-24] MED LIST changes: +LASIX40 MG PO
[2019-07-24 10:34] LABS: ALBUMIN 3.6 gm/dl (3.1-4.5); ALKALINE PHOSPHATASE 115 U/L (45-117); BUN 12 mg/dl (7-24); CHLORIDE 96 mmol/L (98-107); CHOLESTEROL 120 mg/dL (<200); CREATININE 0.94 mg/dL (0.70-1.30); FREE T4 1.04 ng/dl (0.76-1.46); HDL CHOLESTEROL 28 mg/dl (40-60); LDL CHOLESTEROL 72 mg/dL (9-159); POTASSIUM 3.8 mmol/L (3.5-5.1); SGOT/AST 12 IU/L (3-35); SGPT/ALT 14 U/L (12-78); SODIUM 139 mmol/L (136-145); TOTAL PROTEIN 7.7 gm/dL (6.4-8.2); TRIGLYCERIDES 98 mg/dl (<150); VLDL CHOLESTEROL 20 mg/dL (6-40)
[2019-07-24 10:36] LABS: BILIRUBIN NEGATIVE (NEGATIVE); BLOOD NEGATIVE (NEGATIVE); CLARITY CLEAR (CLEAR); COLOR YELLOW (YELLOW); GLUCOSE 2+ (NEGATIVE); KETONE NEGATIVE (NEGATIVE); LEUKO ESTERASE NEGATIVE (NEGATIVE); NITRITE NEGATIVE (NEGATIVE); PH 6.5 (5.0-9.0); SPECIFIC GRAVITY 1.015 (1.005-1.030)
[2019-07-24 10:39] LABS: BILIRUBIN, DIRECT 0.2 mg/dL (0.0-0.2)
[2019-07-24 10:50] LABS: BACTERIA TRACE
== END | disposition home or self-care (01) ==
LOC: LAB 09:34
PROVIDERS: Internal Medicine
DX: E55.9 Vitamin D deficiency, unspecified (principal); E04.9 Nontoxic goiter, unspecified; E78.5 Hyperlipidemia, unspecified; E11.65 Type 2 diabetes mellitus with hyperglycemia

== ENCOUNTER 2019-09-06 12:14 | Emergency (ER) | payer OTHER ==
[~2019-09-06] VITALS: Ht 177.8 cm; Wt 134.4 kg
[2019-09-06 12:48] LABS: BASO # 0.1 10*3/uL (0.0-0.1); BASO % 0.7 % (0.0-1.0); EOS # 0.2 10*3/uL (0.0-0.4); EOS % 1.6 % (1.0-4.0); HEMATOCRIT 36.1 % (42.0-52.0); HEMOGLOBIN 9.3 g/dl (14.0-18.0); LYMPH # 2.4 10*3/uL (1.3-4.4); LYMPH % 18.9 % (27.0-41.0); MEAN CELL VOLUME 80.6 fl (80.0-94.0); MEAN CORPUSCULAR HGB 20.8 pg (27.0-31.0); MEAN CORPUSCULAR HGB CONC 25.8 g/dl (33.0-37.0); MEAN PLATELET VOLUME 10.2 fl (9.6-12.3); MONO # 0.8 10*3/uL (0.1-1.0); MONO % 6.3 % (3.0-9.0); NEUT # 8.9 10*3/uL (2.3-7.9); PLATELET COUNT AUTOMATED 295 10*3/uL (130-400); RED BLOOD COUNT 4.48 10*6/uL (4.50-5.90); RED CELL DISTRI WIDTH 19.4 % (0-14.5); WHITE BLOOD COUNT 12.4 10*3/uL (4.8-10.8)
[2019-09-06 12:59] LABS: ACT PARTIAL THROMBO TIME 35.6 SECONDS (20.0-32.1); INTERNATIONAL NORM RATIO 1.1 (2.0-3.5)
[2019-09-06 13:08] LABS: ALBUMIN 3.4 gm/dl (3.1-4.5); ALKALINE PHOSPHATASE 117 U/L (45-117); BUN 12 mg/dl (7-24); CHLORIDE 99 mmol/L (98-107); CREATININE 1.02 mg/dL (0.70-1.30); POTASSIUM 3.9 mmol/L (3.5-5.1); SGOT/AST 6 IU/L (3-35); SGPT/ALT 12 U/L (12-78); SODIUM 140 mmol/L (136-145); TOTAL PROTEIN 7.6 gm/dL (6.4-8.2)
[2019-09-06 13:09] LABS: TROPONIN I < 0.015 ng/ml (<0.045)
[2019-09-06 13:37] VITALS: BP 128/52
[2019-09-06] MEDS ORDERED: PREDNISONE50 MG PO (15:26)
== END 2019-09-06 15:45 | disposition home or self-care (01) ==
LOC: ED 12:14
PROVIDERS: Emergency Medicine
DX: J44.1 Chronic obstructive pulmonary disease with (acute) exacerbation (principal); E11.9 Type 2 diabetes mellitus without complications; E66.01 Morbid (severe) obesity due to excess calories; I48.91 Unspecified atrial fibrillation; E78.5 Hyperlipidemia, unspecified; I11.0 Hypertensive heart disease with heart failure; I50.33 Acute on chronic diastolic (congestive) heart failure; F17.210 Nicotine dependence, cigarettes, uncomplicated; Z79.899 Other long term (current) drug therapy; Z79.4 Long term (current) use of insulin

== ENCOUNTER 2020-02-17 13:06 | Emergency (ER) | payer OTHER ==
[~2020-02-17] VITALS: Wt 139.9 kg
[~2020-02-17 13:06] MED LIST changes: +PREDNISONE50 MG PO
[2020-02-17 13:17] VITALS: BP 136/71
[2020-02-17 13:58] LABS: BASO # 0.1 10*3/uL (0.0-0.1); BASO % 0.9 % (0.0-1.0); EOS # 0.2 10*3/uL (0.0-0.4); EOS % 1.7 % (1.0-4.0); HEMATOCRIT 33.5 % (42.0-52.0); LYMPH % 20.1 % (27.0-41.0); MEAN CELL VOLUME 83.1 fl (80.0-94.0); MEAN CORPUSCULAR HGB 20.6 pg (27.0-31.0); MEAN CORPUSCULAR HGB CONC 24.8 g/dl (33.0-37.0); MEAN PLATELET VOLUME 10.6 fl (9.6-12.3); MONO # 0.7 10*3/uL (0.1-1.0); MONO % 6.7 % (3.0-9.0); NEUT % 70.1 % (47.0-73.0); PLATELET COUNT AUTOMATED 283 10*3/uL (130-400); RED BLOOD COUNT 4.03 10*6/uL (4.50-5.90); RED CELL DISTRI WIDTH 19.5 % (0-14.5)
[2020-02-17 14:08] LABS: ACT PARTIAL THROMBO TIME 31.1 SECONDS (20.0-32.1); INTERNATIONAL NORM RATIO 1.1 (2.0-3.5)
[2020-02-17 14:23] LABS: ALBUMIN 3.4 gm/dl (3.1-4.5); ALKALINE PHOSPHATASE 105 U/L (45-117); BUN 11 mg/dl (7-24); CHLORIDE 98 mmol/L (98-107); CREATININE 0.92 mg/dL (0.70-1.30); POTASSIUM 3.8 mmol/L (3.5-5.1); SGOT/AST 4 IU/L (3-35); SGPT/ALT 12 U/L (12-78); SODIUM 138 mmol/L (136-145); TOTAL PROTEIN 7.7 gm/dL (6.4-8.2)
[2020-02-17 14:28] LABS: TROPONIN I < 0.015 ng/ml (<0.045)
== END 2020-02-17 15:46 | disposition left against medical advice (07) ==
LOC: ED 13:06
PROVIDERS: Emergency Medicine
DX: I50.9 Heart failure, unspecified (principal); I11.0 Hypertensive heart disease with heart failure; J44.9 Chronic obstructive pulmonary disease, unspecified; I48.91 Unspecified atrial fibrillation; E11.9 Type 2 diabetes mellitus without complications; Z79.899 Other long term (current) drug therapy; Z87.891 Personal history of nicotine dependence

== ENCOUNTER 2020-03-31 14:29 | Inpatient (IN) | payer OTHER ==
[2020-03-31] VITALS (7 sets, daily range): BP systolic 123–148; BP diastolic 53–91
[~2020-03-31] VITALS: Ht 177.8 cm; Wt 143.5 kg
[2020-03-31 15:00] LABS: BASO # 0.1 10*3/uL (0.0-0.1); BASO % 0.9 % (0.0-1.0); EOS # 0.3 10*3/uL (0.0-0.4); EOS % 2.7 % (1.0-4.0); HEMATOCRIT 32.8 % (42.0-52.0); LYMPH # 2.8 10*3/uL (1.3-4.4); LYMPH % 24.3 % (27.0-41.0); MEAN CELL VOLUME 81.6 fl (80.0-94.0); MEAN CORPUSCULAR HGB 19.9 pg (27.0-31.0); MEAN CORPUSCULAR HGB CONC 24.4 g/dl (33.0-37.0); MEAN PLATELET VOLUME 10.4 fl (9.6-12.3); MONO % 8.6 % (3.0-9.0); NEUT # 7.2 10*3/uL (2.3-7.9); NEUT % 63.1 % (47.0-73.0); PLATELET COUNT AUTOMATED 351 10*3/uL (130-400); RED BLOOD COUNT 4.02 10*6/uL (4.50-5.90); RED CELL DISTRI WIDTH 19.3 % (0-14.5); WHITE BLOOD COUNT 11.4 10*3/uL (4.8-10.8)
[2020-03-31 15:12] LABS: INTERNATIONAL NORM RATIO 1.3 (2.0-3.5)
[2020-03-31 15:16] LABS: ALBUMIN 3.6 gm/dl (3.1-4.5); ALKALINE PHOSPHATASE 122 U/L (45-117); BUN 11 mg/dl (7-24); CHLORIDE 97 mmol/L (98-107); CREATININE 0.98 mg/dL (0.70-1.30); POTASSIUM 4.1 mmol/L (3.5-5.1); SGOT/AST 7 IU/L (3-35); SGPT/ALT 10 U/L (12-78); SODIUM 138 mmol/L (136-145); TOTAL PROTEIN 8.1 gm/dL (6.4-8.2)
[2020-03-31 15:24] LABS: TROPONIN I < 0.015 ng/ml (<0.045)
[2020-03-31] MEDS ORDERED: MAXITROL OPHTH3.5 GM OPH (18:44)
[2020-04-01] VITALS: BP 136/53
[2020-04-01 07:43] LABS: ALBUMIN 3.2 gm/dl (3.1-4.5); ALKALINE PHOSPHATASE 106 U/L (45-117); BUN 17 mg/dl (7-24); CHLORIDE 96 mmol/L (98-107); CHOLESTEROL 113 mg/dL (<200); CREATININE 0.95 mg/dL (0.70-1.30); HDL CHOLESTEROL 30 mg/dl (40-60); LDL CHOLESTEROL 71 mg/dL (9-159); POTASSIUM 3.9 mmol/L (3.5-5.1); SGOT/AST 8 IU/L (3-35); SGPT/ALT 8 U/L (12-78); SODIUM 137 mmol/L (136-145); TOTAL PROTEIN 7.4 gm/dL (6.4-8.2); TRIGLYCERIDES 60 mg/dl (<150); VLDL CHOLESTEROL 12 mg/dL (6-40)
[2020-04-01 07:49] LABS: BASO % 0.2 % (0.0-1.0); HEMATOCRIT 31.4 % (42.0-52.0); MEAN CELL VOLUME 80.5 fl (80.0-94.0); MEAN CORPUSCULAR HGB 19.5 pg (27.0-31.0); MEAN CORPUSCULAR HGB CONC 24.2 g/dl (33.0-37.0); MEAN PLATELET VOLUME 11.2 fl (9.6-12.3); MONO # 0.2 10*3/uL (0.1-1.0); NEUT # 7.8 10*3/uL (2.3-7.9); NEUT % 86.5 % (47.0-73.0); PLATELET COUNT AUTOMATED 355 10*3/uL (130-400); WHITE BLOOD COUNT 9.1 10*3/uL (4.8-10.8)
[2020-04-01 08:02] LABS: VITAMIN D, 25-HYDROXY 49.7 ng/mL (30-100)
[2020-04-01 12:00] VITALS: BP 132/57
[2020-04-01 16:00] VITALS: BP 141/50
[2020-04-01 20:00] VITALS: BP 121/60
[2020-04-02] VITALS: BP 122/54
[2020-04-02 06:49] LABS: BASO % 0.1 % (0.0-1.0); HEMATOCRIT 31.4 % (42.0-52.0); LYMPH # 1.1 10*3/uL (1.3-4.4); MEAN CELL VOLUME 80.3 fl (80.0-94.0); MEAN CORPUSCULAR HGB 19.9 pg (27.0-31.0); MEAN CORPUSCULAR HGB CONC 24.8 g/dl (33.0-37.0); MEAN PLATELET VOLUME 10.8 fl (9.6-12.3); MONO # 0.6 10*3/uL (0.1-1.0); MONO % 6.2 % (3.0-9.0); NEUT # 8.5 10*3/uL (2.3-7.9); NEUT % 82.4 % (47.0-73.0); PLATELET COUNT AUTOMATED 355 10*3/uL (130-400); RED BLOOD COUNT 3.91 10*6/uL (4.50-5.90); RED CELL DISTRI WIDTH 18.9 % (0-14.5); WHITE BLOOD COUNT 10.3 10*3/uL (4.8-10.8)
[2020-04-02 07:27] LABS: CHLORIDE 95 mmol/L (98-107); POTASSIUM 3.8 mmol/L (3.5-5.1); SODIUM 138 mmol/L (136-145)
[2020-04-02 07:35] LABS: BUN 22 mg/dl (7-24); CREATININE 0.82 mg/dL (0.70-1.30)
[2020-04-02 08:00] VITALS: BP 130/63
[2020-04-02 12:00] VITALS: BP 121/52
[2020-04-02 16:00] VITALS: BP 125/56
[2020-04-02 20:00] VITALS: BP 102/40
[2020-04-03] VITALS: BP 138/70
[2020-04-03 06:46] LABS: HEMATOCRIT 31.7 % (42.0-52.0); LYMPH # 1.3 10*3/uL (1.3-4.4); LYMPH % 12.5 % (27.0-41.0); MEAN CELL VOLUME 79.8 fl (80.0-94.0); MEAN CORPUSCULAR HGB 19.9 pg (27.0-31.0); MEAN CORPUSCULAR HGB CONC 24.9 g/dl (33.0-37.0); MEAN PLATELET VOLUME 10.5 fl (9.6-12.3); MONO # 0.6 10*3/uL (0.1-1.0); MONO % 5.8 % (3.0-9.0); NEUT # 8.6 10*3/uL (2.3-7.9); NEUT % 81.2 % (47.0-73.0); NUCLEATED RED BLOOD CELL 0.2 % (0.0-0.0); PLATELET COUNT AUTOMATED 337 10*3/uL (130-400); RED BLOOD COUNT 3.97 10*6/uL (4.50-5.90); RED CELL DISTRI WIDTH 18.9 % (0-14.5); WHITE BLOOD COUNT 10.6 10*3/uL (4.8-10.8)
[2020-04-03 07:05] LABS: BUN 23 mg/dl (7-24); CHLORIDE 96 mmol/L (98-107); POTASSIUM 3.7 mmol/L (3.5-5.1); SODIUM 139 mmol/L (136-145)
[2020-04-03 08:00] VITALS: BP 143/61
[2020-04-03 08:53] LABS: ARTERIAL BLOOD GAS PH 7.383 (7.35-7.45)
[2020-04-03 12:00] VITALS: BP 116/51
[2020-04-03] MEDS ORDERED: PREDNISONE10 MG PO (12:45)
== END 2020-04-03 13:43 | disposition home or self-care (01) | DRG 291 ==
LOC: ED 14:29 → 5E 17:00 → EDHOLD 17:00 → 5E 17:50
PROVIDERS: Emergency Medicine; Internal Medicine; Student in an Organized Health Care Education/Training Program; ADMIT Family Medicine
PROC: 5A09357 Assistance with Respiratory Ventilation, Less than 24 Consecutive Hours, Continuous Positive Airway Pressure (ICD-10-PCS; principal; 2020-04-01)
PROC: 5A09357 Assistance with Respiratory Ventilation, Less than 24 Consecutive Hours, Continuous Positive Airway Pressure (ICD-10-PCS; 2020-04-02)
PROC: 5A09357 Assistance with Respiratory Ventilation, Less than 24 Consecutive Hours, Continuous Positive Airway Pressure (ICD-10-PCS; 2020-04-03)
DX: I50.33 Acute on chronic diastolic (congestive) heart failure (principal); J96.20 Acute and chronic respiratory failure, unspecified whether with hypoxia or hypercapnia; J44.1 Chronic obstructive pulmonary disease with (acute) exacerbation; I48.20 Chronic atrial fibrillation, unspecified; J96.11 Chronic respiratory failure with hypoxia; E83.41 Hypermagnesemia; E87.8 Other disorders of electrolyte and fluid balance, not elsewhere classified; E11.65 Type 2 diabetes mellitus with hyperglycemia; E78.5 Hyperlipidemia, unspecified; F17.210 Nicotine dependence, cigarettes, uncomplicated; D64.9 Anemia, unspecified; M1A.9XX0 Chronic gout, unspecified, without tophus (tophi); R74.8 Abnormal levels of other serum enzymes; Z79.4 Long term (current) use of insulin; Z79.899 Other long term (current) drug therapy; Z81.1 Family history of alcohol abuse and dependence; Z83.79 Family history of other diseases of the digestive system; Z80.9 Family history of malignant neoplasm, unspecified

== ENCOUNTER → 2020-05-03 | Emergency (ER) | payer OTHER ==
[~2020-05-03] VITALS: Ht 177.8 cm; Wt 139.3 kg
[~2020-05-03] MED LIST changes: +MAXITROL OPHTH3.5 GM OPH
[2020-05-03 14:26] VITALS: BP 167/60
[2020-05-03 15:00] LABS: BASO # 0.1 10*3/uL (0.0-0.1); BASO % 0.5 % (0.0-1.0); EOS # 0.2 10*3/uL (0.0-0.4); EOS % 2.1 % (1.0-4.0); HEMATOCRIT 32.6 % (42.0-52.0); LYMPH # 2.1 10*3/uL (1.3-4.4); LYMPH % 21.9 % (27.0-41.0); MEAN CORPUSCULAR HGB 19.8 pg (27.0-31.0); MEAN CORPUSCULAR HGB CONC 23.9 g/dl (33.0-37.0); MEAN PLATELET VOLUME 9.7 fl (9.6-12.3); MONO # 0.7 10*3/uL (0.1-1.0); MONO % 7.2 % (3.0-9.0); NEUT # 6.5 10*3/uL (2.3-7.9); NEUT % 67.7 % (47.0-73.0); PLATELET COUNT AUTOMATED 425 10*3/uL (130-400); RED BLOOD COUNT 3.93 10*6/uL (4.50-5.90); RED CELL DISTRI WIDTH 19.6 % (0-14.5); WHITE BLOOD COUNT 9.6 10*3/uL (4.8-10.8)
[2020-05-03 15:16] LABS: ALBUMIN 3.1 gm/dl (3.1-4.5); ALKALINE PHOSPHATASE 117 U/L (45-117); BUN 10 mg/dl (7-24); CHLORIDE 99 mmol/L (98-107); CREATININE 0.97 mg/dL (0.70-1.30); POTASSIUM 3.8 mmol/L (3.5-5.1); SGOT/AST 5 IU/L (3-35); SGPT/ALT 11 U/L (12-78); SODIUM 137 mmol/L (136-145); TOTAL PROTEIN 7.3 gm/dL (6.4-8.2)
== END ==
LOC: ED 14:21
PROVIDERS: Emergency Medicine
DX: R60.9 Edema, unspecified (principal); Z79.899 Other long term (current) drug therapy; J44.9 Chronic obstructive pulmonary disease, unspecified; E11.9 Type 2 diabetes mellitus without complications; I10 Essential (primary) hypertension; I48.91 Unspecified atrial fibrillation; Z87.891 Personal history of nicotine dependence

== ENCOUNTER 2020-07-01 14:37 | Inpatient (IN) | payer OTHER ==
[2020-07-01] VITALS (12 sets, daily range): BP systolic 116–134; BP diastolic 52–70
[~2020-07-01] VITALS: Ht 177.8 cm; Wt 155.8 kg
[2020-07-01 14:59] LABS: BASO # 0.1 10*3/uL (0.0-0.1); BASO % 0.8 % (0.0-1.0); EOS # 0.2 10*3/uL (0.0-0.4); EOS % 2.2 % (1.0-4.0); HEMATOCRIT 32.5 % (42.0-52.0); LYMPH # 2.3 10*3/uL (1.3-4.4); LYMPH % 22.6 % (27.0-41.0); MEAN CELL VOLUME 81.7 fl (80.0-94.0); MEAN CORPUSCULAR HGB 19.1 pg (27.0-31.0); MEAN CORPUSCULAR HGB CONC 23.4 g/dl (33.0-37.0); MEAN PLATELET VOLUME 10.4 fl (9.6-12.3); MONO # 0.8 10*3/uL (0.1-1.0); MONO % 7.9 % (3.0-9.0); NEUT # 6.7 10*3/uL (2.3-7.9); NEUT % 66.2 % (47.0-73.0); PLATELET COUNT AUTOMATED 270 10*3/uL (130-400); RED BLOOD COUNT 3.98 10*6/uL (4.50-5.90); RED CELL DISTRI WIDTH 19.5 % (0-14.5); WHITE BLOOD COUNT 10.2 10*3/uL (4.8-10.8)
[2020-07-01 15:11] LABS: ACT PARTIAL THROMBO TIME 29.9 SECONDS (20.0-32.1); INTERNATIONAL NORM RATIO 1.2 (2.0-3.5)
[2020-07-01 15:17] LABS: ALBUMIN 3.5 gm/dl (3.1-4.5); ALKALINE PHOSPHATASE 110 U/L (45-117); BUN 10 mg/dl (7-24); CHLORIDE 97 mmol/L (98-107); CREATININE 0.94 mg/dL (0.70-1.30); POTASSIUM 4.2 mmol/L (3.5-5.1); SGOT/AST 5 IU/L (3-35); SGPT/ALT 8 U/L (12-78); SODIUM 140 mmol/L (136-145); TOTAL PROTEIN 7.6 gm/dL (6.4-8.2)
[2020-07-01 15:29] LABS: TROPONIN I < 0.015 ng/ml (<0.045)
[2020-07-01 16:22] LABS: ABG BASE EXCESS 13.2 mmol/L (-2.0-2.0); ARTERIAL BLOOD GAS PH 7.297 (7.35-7.45)
--- NOTE | 2020-07-01 20:52 | NUR ---
PT DENIES WOUNDS AT THIS TIME. NO VISIBLE WOUNDS NOTED.
--- NOTE | 2020-07-01 21:07 | NUR ---
FLOOR RN CONTACTED. RESPIRATORY ON FLOOR TO TRANSPORT.
--- NOTE | 2020-07-01 21:30 | NUR ---
A 54, admitted to 4E, under the services of ALONZO Wall DO with a diagnosis of CHF, ABDOMINAL WALL CELLULITIS. Chief complaint is SHORTNESS OF BREATH. Patient arrived via bed from ER. Monitor applied. Initial assessment completed. Vital signs taken and recorded. ALONZO WALL DO notified of admission to the unit. Orders received. See assessment for past medical history, medications and allergies. Patient and/or family oriented to unit. [facility] visitation policy reviewed. Clothing/patient valuable form completed. BRITTNI ASIF
--- NOTE | 2020-07-01 21:40 | NUR ---
BLOOD FINISHED INFUSING AT THIS TIME. PATIENT TOLERATED WELL. VITAL SIGNS REMAIN STABLE.
--- NOTE | 2020-07-01 21:52 | NUR ---
NOTIFIED DR. DALE OF PATIENTS SOLUMEDROL ORDER AND THAT HE RECENTLY JUST RECIEVED 125MG OF SOLUMEDROL AT 4PM AND ANOTHER DOSE IS DUE AT 10PM. HE STATED TO JUST WAIT UNTIL 10AM TOMORROW TO GIVE HIM A DOSE
--- NOTE | 2020-07-01 21:54 | NUR ---
PATIENT STATES THE ONLY TWO PILLS HE NEEDS ARE XARELTO AND COREG TONIGHT. AND HE DOES NOT HAVE A LIST OF MEDICATIONS THAT HE TAKES,
--- NOTE | 2020-07-01 22:35 | NUR ---
NOTIFIED DR. DALE THAT PATIENT NEEDS TO HAVE HIS ZARELTO AND COREG AND THAT'S IT AND THAT WE CAN GET THE REST OF HIS MEDICATIONS IN THE MORNING FROM [facility]
[2020-07-02] VITALS: BP 127/62
[2020-07-02 01:20] LABS: HEMATOCRIT 31.5 % (42.0-52.0); MEAN CELL VOLUME 80.4 fl (80.0-94.0); MEAN CORPUSCULAR HGB 19.6 pg (27.0-31.0); MEAN CORPUSCULAR HGB CONC 24.4 g/dl (33.0-37.0); MEAN PLATELET VOLUME 10.8 fl (9.6-12.3); PLATELET COUNT AUTOMATED 258 10*3/uL (130-400); RED BLOOD COUNT 3.92 10*6/uL (4.50-5.90); RED CELL DISTRI WIDTH 19.3 % (0-14.5); WHITE BLOOD COUNT 9.6 10*3/uL (4.8-10.8)
[2020-07-02 01:40] LABS: MICROCYTOSIS SLIGHT; PLATELET SUFFICIENCY NORMAL (NORMAL); TOTAL CELLS COUNTED 100 #CELLS
[2020-07-02 01:41] LABS: OVALOCYTES FEW; STOMATOCYTE FEW
--- NOTE | 2020-07-02 02:20 | NUR ---
OK PER DR. DALE TO CONTINUE PATIENTS VENTOLIN QID FROM HOME MEDICATIONS
--- NOTE | 2020-07-02 02:47 | NUR ---
PATIENT IS REFUSING TO HAVE SCD'S PLACED ON LEGS. PATIENT STATES HE DOESN'T LIKE THEM. SPOKE WITH THE PATIENT PERTAINING TO THE DOCTORS TAKING HIM OFF HIS XARELTO BECAUSE OF HIS HEMOGLOBIN AND THEY WOULD LIKE FOR HIM TO WEAR SCD'S. PATIENT STILL REFUSED.
--- NOTE | 2020-07-02 06:40 | NUR ---
DR. FIGUEROA NOTIFIED OF NEW CONSULT
--- NOTE | 2020-07-02 06:51 | NUR ---
DR. MELCHOR NOTIFIED OF CONSULT AT THIS TIME
[2020-07-02 07:19] LABS: BASO % 0.1 % (0.0-1.0); HEMATOCRIT 30.4 % (42.0-52.0); LYMPH % 11.1 % (27.0-41.0); MEAN CELL VOLUME 81.3 fl (80.0-94.0); MEAN CORPUSCULAR HGB 20.1 pg (27.0-31.0); MEAN CORPUSCULAR HGB CONC 24.7 g/dl (33.0-37.0); MEAN PLATELET VOLUME 10.3 fl (9.6-12.3); MONO # 0.2 10*3/uL (0.1-1.0); MONO % 2.3 % (3.0-9.0); NEUT # 7.7 10*3/uL (2.3-7.9); NEUT % 86.1 % (47.0-73.0); PLATELET COUNT AUTOMATED 235 10*3/uL (130-400); RED BLOOD COUNT 3.74 10*6/uL (4.50-5.90); RED CELL DISTRI WIDTH 19.5 % (0-14.5)
[2020-07-02 07:30] LABS: ACT PARTIAL THROMBO TIME 36.8 SECONDS (20.0-32.1); INTERNATIONAL NORM RATIO 1.6 (2.0-3.5)
--- NOTE | 2020-07-02 07:31 | NUR ---
PT ON BIPAP AT THIS TIME, GAVE AEROSOL [place] THROUGH THE MACHINE
[2020-07-02 07:52] LABS: ALBUMIN 3.1 gm/dl (3.1-4.5); BUN 17 mg/dl (7-24); CHLORIDE 97 mmol/L (98-107); CHOLESTEROL 89 mg/dL (<200); POTASSIUM 3.9 mmol/L (3.5-5.1); SGPT/ALT 9 U/L (12-78); SODIUM 138 mmol/L (136-145); TRIGLYCERIDES 69 mg/dl (<150); VLDL CHOLESTEROL 14 mg/dL (6-40)
[2020-07-02 08:00] VITALS: BP 142/61
[2020-07-02 08:05] LABS: ALKALINE PHOSPHATASE 91 U/L (45-117); CREATININE 0.99 mg/dL (0.70-1.30); FREE T4 0.86 ng/dl (0.76-1.46); HDL CHOLESTEROL 32 mg/dl (40-60); LDL CHOLESTEROL 43 mg/dL (9-159); SGOT/AST 5 IU/L (3-35); TOTAL PROTEIN 6.6 gm/dL (6.4-8.2)
[2020-07-02 08:37] LABS: VITAMIN D, 25-HYDROXY 58.3 ng/mL (30-100)
--- NOTE | 2020-07-02 09:00 | NUR ---
Supervisor Instant Potato Processing in to talk to patient. Patient states lives at home with girlfriend. There are 3 steps in the home. Physician: nuria menard/toni [facility] Home health services: none Patient's level of ADLs: MINIMAL ASSIST Patient has working utilities: all working DME: home oxygen, 6l/min, portable tanks, bipap Follow-up physician's appointment after d/c: will be made by hospitalist nurse director upon discharge Does patient want to access PORTAL?: no Discharge plan discussed with patient, he states he lives at home with his girlfriend, he is independent in adls and ambulation, he stated he would return home when discharged and denies any home needs, case management will follow. EAN MAX
[2020-07-02 12:00] VITALS: BP 149/49
[2020-07-02 13:30] LABS: ABG BASE EXCESS 10.4 mmol/L (-2.0-2.0); ARTERIAL BLOOD GAS PH 7.345 (7.35-7.45)
--- NOTE | 2020-07-02 15:10 | NUR ---
PHYSICAL THERAPY Lyn receieved and chart reviewed attempted to see pt at the bedside for lyn, currently on BIPAP and stated he did not want to do therapy at this time as just back on BIPAP pt states he will try tomorrow. Will follow in the AM Dana Hazel PT
--- NOTE | 2020-07-02 15:12 | NUR ---
Occupational Therapy evaluation offered to patient who was on bipap. Patient reported that he "was not getting off" bipap and requested OT return tomorrow. OTR will attempt at a later date. Alexa James OTR/feliciano
[2020-07-02 16:00] VITALS: BP 138/38
[2020-07-02 20:00] VITALS: BP 128/49
--- NOTE | 2020-07-02 20:02 | NUR ---
24 HR chart check completed.
--- NOTE | 2020-07-02 21:00 | NUR ---
SLEEPING, AWAKENS EASILY. RESPIRATIONS EASY. LUNGS DIMINISHED WITH EXP WHEEZES. PULSE OX 100% ON BI-PAP. PRODUCTIVE COUGH - SPUTUM OBTAINED AND SENT FOR SAMPLE. TRACE BLE EDEMA - CONTINUES TO DECLINES TEDS/SCDS. CALL LIGHT WITHIN REACH. NO VOICED COMPLAINTS.
[2020-07-03] VITALS: BP 143/71
--- NOTE | 2020-07-03 | NUR ---
SLEEPING. NO DISTRESS NOTED. RESPIRATIONS EASY. PULSE OX 99% BI-PAP. VSS. CALL LIGHT WITHIN REACH
--- NOTE | 2020-07-03 06:00 | NUR ---
SLEPT THROUGHOUT NIGHT WITH NO ACUTE DISTRESS NOTED. RESPIRATIONS EASY. BI-PAP REMAINS IN USE. CALL LIGHT WITHIN REACH. NO VOICED COMPLAINTS THIS SHIFT
--- NOTE | 2020-07-03 07:35 | NUR ---
PATIENT TAKEN OFF OF BI-PAP, PLACED ON 6 L/M.
[2020-07-03 07:55] LABS: BASO % 0.1 % (0.0-1.0); HEMATOCRIT 30.5 % (42.0-52.0); LYMPH % 10.1 % (27.0-41.0); MEAN CELL VOLUME 80.7 fl (80.0-94.0); MEAN CORPUSCULAR HGB 19.8 pg (27.0-31.0); MEAN CORPUSCULAR HGB CONC 24.6 g/dl (33.0-37.0); MEAN PLATELET VOLUME 10.6 fl (9.6-12.3); MONO # 0.4 10*3/uL (0.1-1.0); MONO % 3.9 % (3.0-9.0); NEUT # 8.1 10*3/uL (2.3-7.9); NEUT % 85.6 % (47.0-73.0); PLATELET COUNT AUTOMATED 246 10*3/uL (130-400); RED BLOOD COUNT 3.78 10*6/uL (4.50-5.90); RED CELL DISTRI WIDTH 19.9 % (0-14.5); WHITE BLOOD COUNT 9.4 10*3/uL (4.8-10.8)
[2020-07-03 08:00] VITALS: BP 135/54
[2020-07-03 08:04] LABS: INTERNATIONAL NORM RATIO 1.2 (2.0-3.5)
--- NOTE | 2020-07-03 09:00 | NUR ---
case management visits with patient, he will return home when discharged, denies any home needs
[2020-07-03 09:23] LABS: BUN 23 mg/dl (7-24); CHLORIDE 96 mmol/L (98-107); CREATININE 0.87 mg/dL (0.70-1.30); POTASSIUM 3.9 mmol/L (3.5-5.1); SODIUM 139 mmol/L (136-145)
--- NOTE | 2020-07-03 10:32 | NUR ---
SPOKE WITH DR. BUCKNER AFTER RECEIVING CRITICAL BLOOD CULTURE RESULTS. THE PT BC SHOWS GRAM + COCCI CLUSTERS. AWAITING ORDERS.
[2020-07-03 12:00] VITALS: BP 138/52
--- NOTE | 2020-07-03 15:39 | NUR ---
PT NOT ON BIPAP AT THIS TIME
[2020-07-03 16:00] VITALS: BP 155/61
[2020-07-03 20:00] VITALS: BP 135/69
[2020-07-03 23:12] VITALS: BP 148/61
[2020-07-04] VITALS (10 sets, daily range): BP systolic 129–152; BP diastolic 55–88
[2020-07-04 06:08] LABS: BASO % 0.1 % (0.0-1.0); BUN 24 mg/dl (7-24); CHLORIDE 95 mmol/L (98-107); CREATININE 0.85 mg/dL (0.70-1.30); HEMATOCRIT 31.4 % (42.0-52.0); LYMPH % 10.1 % (27.0-41.0); MEAN CELL VOLUME 82.8 fl (80.0-94.0); MEAN CORPUSCULAR HGB 20.6 pg (27.0-31.0); MEAN CORPUSCULAR HGB CONC 24.8 g/dl (33.0-37.0); MEAN PLATELET VOLUME 11.2 fl (9.6-12.3); MONO # 0.3 10*3/uL (0.1-1.0); MONO % 2.6 % (3.0-9.0); NEUT # 8.5 10*3/uL (2.3-7.9); NEUT % 86.7 % (47.0-73.0); PLATELET COUNT AUTOMATED 265 10*3/uL (130-400); POTASSIUM 4.1 mmol/L (3.5-5.1); RED BLOOD COUNT 3.79 10*6/uL (4.50-5.90); RED CELL DISTRI WIDTH 19.9 % (0-14.5); SODIUM 136 mmol/L (136-145); WHITE BLOOD COUNT 9.8 10*3/uL (4.8-10.8)
--- NOTE | 2020-07-04 20:43 | NUR ---
UNIT OF PRBCs COMPLETED AT THIS TIME. PATIENT VOICED NO COMPLAINTS
--- NOTE | 2020-07-04 21:40 | NUR ---
VITAL SIGNS WNL, 97.8 84 18 152/57 AND 100% ON 6L NC. PATIENT VOICED NO COMPLAINTS CONCERNING FOR REACTION TO BLOOD. WILL CONTINUE TO MONITOR
[2020-07-05] VITALS: BP 114/50
[2020-07-05 05:44] LABS: BUN 25 mg/dl (7-24); CHLORIDE 97 mmol/L (98-107); CREATININE 0.75 mg/dL (0.70-1.30); POTASSIUM 3.8 mmol/L (3.5-5.1); SODIUM 141 mmol/L (136-145)
--- NOTE | 2020-07-05 05:48 | NUR ---
MADE AWARE OF CH CO2 OF 42. NO NEW ORDERS.
[2020-07-05 05:56] LABS: EOS % 0.1 % (1.0-4.0); HEMATOCRIT 32.6 % (42.0-52.0); LYMPH # 2.2 10*3/uL (1.3-4.4); LYMPH % 21.8 % (27.0-41.0); MEAN CELL VOLUME 82.1 fl (80.0-94.0); MEAN CORPUSCULAR HGB 20.2 pg (27.0-31.0); MEAN CORPUSCULAR HGB CONC 24.5 g/dl (33.0-37.0); MEAN PLATELET VOLUME 11.4 fl (9.6-12.3); MONO % 9.8 % (3.0-9.0); NEUT # 6.7 10*3/uL (2.3-7.9); NEUT % 67.8 % (47.0-73.0); PLATELET COUNT AUTOMATED 248 10*3/uL (130-400); RED BLOOD COUNT 3.97 10*6/uL (4.50-5.90); RED CELL DISTRI WIDTH 19.2 % (0-14.5); WHITE BLOOD COUNT 9.9 10*3/uL (4.8-10.8)
[2020-07-05 08:00] VITALS: BP 138/63
[2020-07-05 12:00] VITALS: BP 126/50
[2020-07-05 15:59] VITALS: BP 167/72
[2020-07-05 20:00] VITALS: BP 159/67
--- NOTE | 2020-07-05 21:00 | NUR ---
SLEEPING, AWAKENS EASILY BUT DROWSY. RESPIRATIONS EASY. LUNGS DIMINISHED WITH SCATTERED WHEEZES AND POOR AIR MOVEMENT. PULSE OX 99% WITH BI-PAP IN USE. CALL LIGHT WITHIN REACH. NO VOICED COMPLAINTS
[2020-07-06] VITALS: BP 169/75
[2020-07-06 06:41] LABS: BASO % 0.1 % (0.0-1.0); EOS % 0.3 % (1.0-4.0); HEMATOCRIT 32.7 % (42.0-52.0); LYMPH # 2.7 10*3/uL (1.3-4.4); LYMPH % 24.4 % (27.0-41.0); MEAN CELL VOLUME 82.2 fl (80.0-94.0); MEAN CORPUSCULAR HGB 20.4 pg (27.0-31.0); MEAN CORPUSCULAR HGB CONC 24.8 g/dl (33.0-37.0); MEAN PLATELET VOLUME 10.7 fl (9.6-12.3); MONO # 1.1 10*3/uL (0.1-1.0); MONO % 10.3 % (3.0-9.0); NEUT % 64.3 % (47.0-73.0); PLATELET COUNT AUTOMATED 246 10*3/uL (130-400); RED BLOOD COUNT 3.98 10*6/uL (4.50-5.90); RED CELL DISTRI WIDTH 19.5 % (0-14.5); WHITE BLOOD COUNT 10.9 10*3/uL (4.8-10.8)
[2020-07-06 06:50] LABS: BUN 21 mg/dl (7-24); CHLORIDE 96 mmol/L (98-107); CREATININE 0.75 mg/dL (0.70-1.30); SODIUM 141 mmol/L (136-145)
--- NOTE | 2020-07-06 07:16 | NUR ---
DR JENKINS NOTIFIED OF CO2 47.
--- NOTE | 2020-07-06 07:19 | NUR ---
24 HR CHART CHECK COMPLETE.
--- NOTE | 2020-07-06 07:25 | NUR ---
PT ON BIPAP T/O THE NIGHT. PT TAKEN OFF AT THIS TIME AND PLACED ON 4 L NC. RESPS REGULAR AND UNLABORED.
[2020-07-06 08:00] VITALS: BP 152/76
--- NOTE | 2020-07-06 09:00 | NUR ---
case management visits with patient, again discussed with patient a discharge plan he stated he would be returning home. discussed with him [facility] and educated him on the services they provide. he stated he was familiar with home health services and he didn't feel he needed anything at this time, case managmeent will follow
[2020-07-06 12:00] VITALS: BP 150/70
--- NOTE | 2020-07-06 14:50 | NUR ---
Occupational Therapy evaluation completed on 4 with full eval to follow. Precautions include obesity, bipap, o2 dependency,IV UE. Recommend no further OT and d/c to home w/ family. Thank you for this referral. Alexa James OTR/l
[2020-07-06 16:00] VITALS: BP 152/59
--- NOTE | 2020-07-06 19:00 | NUR ---
ASSUMED CARE FOR THIS PT AT THIS TIME. PT RESTING QUEITLY IN BED W/EYES CLOSED. AWOKEN EASILY. PT C/O MILD PERALES AND OCC COUGH. WHEEZING AND RHONCHI NOTED T/O. PT WEARING BIPAP. DENIES PAIN. CALL LIGHT IN REACH.
[2020-07-06 20:00] VITALS: BP 137/75
[2020-07-07] VITALS: BP 134/57
[2020-07-07 06:25] LABS: BASO % 0.1 % (0.0-1.0); EOS # 0.1 10*3/uL (0.0-0.4); EOS % 0.7 % (1.0-4.0); HEMATOCRIT 34.2 % (42.0-52.0); LYMPH # 2.6 10*3/uL (1.3-4.4); LYMPH % 21.3 % (27.0-41.0); MEAN CELL VOLUME 82.4 fl (80.0-94.0); MEAN CORPUSCULAR HGB 20.2 pg (27.0-31.0); MEAN CORPUSCULAR HGB CONC 24.6 g/dl (33.0-37.0); MEAN PLATELET VOLUME 10.5 fl (9.6-12.3); MONO % 8.4 % (3.0-9.0); NEUT # 8.3 10*3/uL (2.3-7.9); NEUT % 69.1 % (47.0-73.0); NUCLEATED RED BLOOD CELL 0.2 % (0.0-0.0); PLATELET COUNT AUTOMATED 253 10*3/uL (130-400); RED BLOOD COUNT 4.15 10*6/uL (4.50-5.90); RED CELL DISTRI WIDTH 19.5 % (0-14.5)
[2020-07-07 06:52] LABS: BUN 19 mg/dl (7-24); CHLORIDE 94 mmol/L (98-107); CREATININE 0.73 mg/dL (0.70-1.30); SODIUM 141 mmol/L (136-145)
--- NOTE | 2020-07-07 07:30 | NUR ---
PT IS ON BIPAP AT THIS TIME. GAVE TX THROUGH THE MACHINE
[2020-07-07 08:00] VITALS: BP 118/82
--- NOTE | 2020-07-07 09:00 | NUR ---
case management visits with patient, he is a possibly discharge to home today. educated patient case management will set up [facility] to see him at home. will notify [facility] when patient is discharged. case management will follow for any other needs
--- NOTE | 2020-07-07 09:15 | NUR ---
ATTEMPTED TO CALL FOR RESULTS. NO ANSWER. WILL TRY AGAIN.
--- NOTE | 2020-07-07 10:20 | NUR ---
PHYSICAL THERAPY Patient seen this am 1:1 for therapy visit and was sitting up on EOB upon therapist arrival. Patient identified by name / and presented with IV treatment, continuos O2-6L via NC. Patient was also very pleasant, recording resting SpO2 98%, HR 80 bpm, prior to transfering sit to stand SBA x 1. Patient tolerated static stand, no AD and x 2 minutes without c/o and following brief seated rest break ambulated 20'x 1, no AD, demonstrating "waddling" gait pattern, SBA, while returning to EOB sit. Patient recorded SpO2 94%, HR 98 bpm following gait ex and remained EOB with call light, tray table and telephone. Will continue per POC as tolerated, total treatment time 14 minutes. Carroll Allen, TIMBER SKIDDER
[2020-07-07] MEDS ORDERED: AUGMENTIN 875875 MG PO ×2 (11:12)
[2020-07-07] MEDS ORDERED: PREDNISONE10 MG PO ×2 (11:13)
[2020-07-07 12:00] VITALS: BP 122/80; BP 140/90
--- NOTE | 2020-07-07 12:10 | NUR ---
case management notified [facility] patient was being discharged to home today
--- NOTE | 2020-07-07 13:36 | NUR ---
Discharge instructions reviewed with patient/family. Patient receptive and verbalizes understanding. Follow-up care arranged. Written instructions given to patient/family. BRANDEN PALM
--- NOTE | 2020-07-08 08:00 | NUR ---
PHYSICAL THERAPY CO-SIGN I approve of the Physical Therapy notes written above. KEAGAN WRIGHT PT, DPT
--- NOTE | 2020-07-09 12:46 | NUR ---
SOCIAL ECONOMIST REFAXED THE [facility] REFERRAL.
--- NOTE | 2020-07-10 09:30 | NUR ---
[facility] IS OON. INTERNAL COMBUSTION ENGINE SUBASSEMBLER FAXED REFERRAL TO [facility].
--- NOTE | 2020-07-10 12:05 | NUR ---
PREPRESS TECHNICIAN FAXED REFERRAL [facility] THEY ARE UNABLE TO ACCEPT THE PATIENT. PREPRESS TECHNICIAN CONTACTED PATIENTS INSURANCE AND PROVIDED [facility]. THEY REFERRALS WERE FAXED AND ALL REFUSED THE PATIENT. PREPRESS TECHNICIAN SPOKE WITH CM DIRECTOR ALEXANDRE AND CAMERA ENGINEER LUCIANA TRAN.
--- NOTE | 2020-07-10 13:38 | NUR ---
Attempted to contact patient to discuss home health companies. His stepson answered the phone and stated he was not home at this time, he is out paying bills right now. Héctor stated to call back in a couple of hours when he will be home. Patient is not home bound. Will not qualify for home health services.
== END 2020-07-07 13:36 | disposition home health service (06) | DRG 291 ==
LOC: ED 14:37 → EDHOLD 17:11 → 4E 17:11
PROVIDERS: Emergency Medicine; Hospitalist; Internal Medicine; Internal Medicine Critical Care Medicine; Physician Assistant; ADMIT Family Medicine; ATTEND Family Medicine
DX: I11.0 Hypertensive heart disease with heart failure (principal); J96.22 Acute and chronic respiratory failure with hypercapnia; I26.09 Other pulmonary embolism with acute cor pulmonale; J44.1 Chronic obstructive pulmonary disease with (acute) exacerbation; L03.311 Cellulitis of abdominal wall; I48.20 Chronic atrial fibrillation, unspecified; Z68.42 Body mass index [BMI] 45.0-49.9, adult; I50.33 Acute on chronic diastolic (congestive) heart failure; D64.9 Anemia, unspecified; E87.8 Other disorders of electrolyte and fluid balance, not elsewhere classified; E83.41 Hypermagnesemia; I27.20 Pulmonary hypertension, unspecified; G47.33 Obstructive sleep apnea (adult) (pediatric); F17.210 Nicotine dependence, cigarettes, uncomplicated; E78.5 Hyperlipidemia, unspecified; E11.65 Type 2 diabetes mellitus with hyperglycemia; Z71.6 Tobacco abuse counseling; Z79.4 Long term (current) use of insulin; Z79.1 Long term (current) use of non-steroidal anti-inflammatories (NSAID); Z79.51 Long term (current) use of inhaled steroids

== ENCOUNTER 2020-08-08 14:16 | Inpatient (IN) | payer OTHER ==
[~2020-08-08] VITALS: Ht 179.1 cm; Wt 150.7 kg
[~2020-08-08 14:16] MED LIST changes: +AUGMENTIN 875875 MG PO
[2020-08-08 14:42] VITALS: BP 113/61
[2020-08-08 14:49] LABS: BASO # 0.1 10*3/uL (0.0-0.1); BASO % 0.5 % (0.0-1.0); EOS # 0.2 10*3/uL (0.0-0.4); EOS % 1.8 % (1.0-4.0); HEMATOCRIT 32.8 % (42.0-52.0); LYMPH # 1.9 10*3/uL (1.3-4.4); LYMPH % 19.6 % (27.0-41.0); MEAN CELL VOLUME 83.5 fl (80.0-94.0); MEAN CORPUSCULAR HGB 20.4 pg (27.0-31.0); MEAN CORPUSCULAR HGB CONC 24.4 g/dl (33.0-37.0); MEAN PLATELET VOLUME 10.2 fl (9.6-12.3); MONO # 0.7 10*3/uL (0.1-1.0); MONO % 6.9 % (3.0-9.0); NEUT # 6.9 10*3/uL (2.3-7.9); NEUT % 70.9 % (47.0-73.0); PLATELET COUNT AUTOMATED 545 10*3/uL (130-400); RED BLOOD COUNT 3.93 10*6/uL (4.50-5.90); RED CELL DISTRI WIDTH 18.9 % (0-14.5); WHITE BLOOD COUNT 9.7 10*3/uL (4.8-10.8)
[2020-08-08 15:04] LABS: ACT PARTIAL THROMBO TIME 31.9 SECONDS (20.0-32.1); INTERNATIONAL NORM RATIO 1.3 (2.0-3.5)
[2020-08-08 15:09] LABS: ALBUMIN 3.1 gm/dl (3.1-4.5); ALKALINE PHOSPHATASE 110 U/L (45-117); BUN 10 mg/dl (7-24); CHLORIDE 97 mmol/L (98-107); CREATININE 0.86 mg/dL (0.70-1.30); POTASSIUM 3.8 mmol/L (3.5-5.1); SGOT/AST 5 IU/L (3-35); SODIUM 141 mmol/L (136-145); TOTAL PROTEIN 6.9 gm/dL (6.4-8.2)
[2020-08-08 15:15] LABS: SGPT/ALT < 6 U/L (12-78); TROPONIN I < 0.015 ng/ml (<0.045)
[2020-08-08 18:37] VITALS: BP 104/71; BP 125/54
--- NOTE | 2020-08-08 21:06 | NUR ---
PT GIVEN HOSPITAL BED. RT CALLED ABOUT BIPAP.
--- NOTE | 2020-08-08 21:30 | NUR ---
PATIENT PLACED ON V30 BIPAP /6 WITH A 6 L/M BLEED IN. PATIENT TOLERATING WELL HR 103 SPO2 96%.
--- NOTE | 2020-08-08 23:08 | NUR ---
PT REFUSES TO PUT ON GOWN AT THIS TIME.
[2020-08-08 23:17] VITALS: BP 134/58
--- NOTE | 2020-08-08 23:27 | NUR ---
PT DENIES WOUNDS.
--- NOTE | 2020-08-08 23:40 | NUR ---
A 54, admitted to , under the services of ALONZO Carballo DO with a diagnosis of CHF. Chief complaint is SOB. Patient arrived via bed from ER. Monitor applied. Initial assessment completed. Vital signs taken and recorded. ALONZO CARBALLO DO notified of admission to the unit. Orders received. See assessment for past medical history, medications and allergies. Patient and/or family oriented to unit. Clothing/patient valuable form completed. EDEN WASHINGTON
--- NOTE | 2020-08-09 | NUR ---
MED REC UPDATED PER PT
--- NOTE | 2020-08-09 00:16 | NUR ---
PATIENT PLACED ON BIPAP AT THIS TIME PER RESPIRATORY PER PT REQUEST
--- NOTE | 2020-08-09 02:00 | NUR ---
Patient resting quietly with no c/o discomfort. Respirations easy and regular. Vital signs stable. No overt distress. EDEN WASIHNGTON
[2020-08-09 02:24] LABS: BILIRUBIN Negative (Negative); BLOOD Negative (Negative); CLARITY Clear (Clear); COLOR Yellow (Yellow); GLUCOSE 3+ (Negative); KETONE Negative (Negative); LEUKO ESTERASE Negative (Negative); NITRITE Negative (Negative); UROBILINOGEN 0.2 E.U./dl (0.0-1.0)
[2020-08-09 02:43] LABS: BACTERIA TRACE; RBC 0-2 rbc/hpf (0-2)
--- NOTE | 2020-08-09 06:31 | NUR ---
DR FIGUEROA NOTIFIED OF CONSULT
--- NOTE | 2020-08-09 06:31 | NUR ---
DR MELCHOR CALLED FOR CONSULT; STATES THAT DR FOLEY IS OR SCRUB TECH AND TO MAKE HIM AWARE
--- NOTE | 2020-08-09 06:56 | NUR ---
DR FOLEY NOTIFIED OF CONSULT, STATES TO CALL DR MELCHOR TOMORROW MORNING 0600 TO MAKE HIM AWARE OF CONSULT
[2020-08-09 07:31] LABS: BASO % 0.1 % (0.0-1.0); HEMATOCRIT 31.5 % (42.0-52.0); LYMPH % 11.3 % (27.0-41.0); MEAN CELL VOLUME 83.6 fl (80.0-94.0); MEAN CORPUSCULAR HGB 20.4 pg (27.0-31.0); MEAN CORPUSCULAR HGB CONC 24.4 g/dl (33.0-37.0); MEAN PLATELET VOLUME 10.3 fl (9.6-12.3); MONO # 0.2 10*3/uL (0.1-1.0); NEUT # 7.8 10*3/uL (2.3-7.9); NEUT % 86.2 % (47.0-73.0); PLATELET COUNT AUTOMATED 540 10*3/uL (130-400); RED BLOOD COUNT 3.77 10*6/uL (4.50-5.90); RED CELL DISTRI WIDTH 18.7 % (0-14.5); WHITE BLOOD COUNT 9.1 10*3/uL (4.8-10.8)
[2020-08-09 07:52] LABS: BUN 11 mg/dl (7-24); CHLORIDE 97 mmol/L (98-107); CREATININE 0.86 mg/dL (0.70-1.30); SODIUM 140 mmol/L (136-145)
[2020-08-09 08:00] VITALS: BP 161/65
[2020-08-09 12:00] VITALS: BP 130/58
--- NOTE | 2020-08-09 14:41 | NUR ---
PT SITTING UP IN ROOM WATCHING TV. WHEEZES HEARS T/O LUNGS. ON O2 AT 6L. C/O OCCASIONALMOIST, NONPRODUCTIVE COUGH. HR IRREGULAR. PT DENIES NEEDS A TT HIS TIME. CALL LIGHT WITHIN REACH.
[2020-08-09 16:00] VITALS: BP 135/78
[2020-08-09 19:43] LABS: ABG BASE EXCESS 13.4 mmol/L (-2.0-2.0); ARTERIAL BLOOD GAS PH 7.251 (7.35-7.45)
--- NOTE | 2020-08-09 19:45 | NUR ---
PT ASLEEP IN BED. BIPAP IN USE. WILL MONITOR. CALL LIGHT IN REACH.
--- NOTE | 2020-08-09 19:50 | NUR ---
NOTIFIED OF CRITICAL PCO2 100 ON ABGs. INSTRUCTED TO NOTIFY RESPIRATORY/[place]. RT SPOKE TO . NEW ORDERS RECEIVED FOR BIPAP SETTING CHANGES AND ABGs IN AM.
--- NOTE | 2020-08-09 19:50 | NUR ---
Called with ABG results. Informed to increase pt to 22/10 and get an ABG in the morning. Nurse aware.
[2020-08-09 20:00] VITALS: BP 145/72
[2020-08-10] VITALS: BP 106/52
[2020-08-10 07:05] LABS: BASO # 0.1 10*3/uL (0.0-0.1); BASO % 0.5 % (0.0-1.0); EOS # 0.1 10*3/uL (0.0-0.4); EOS % 0.8 % (1.0-4.0); HEMATOCRIT 30.7 % (42.0-52.0); LYMPH # 2.5 10*3/uL (1.3-4.4); LYMPH % 26.7 % (27.0-41.0); MEAN CELL VOLUME 83.4 fl (80.0-94.0); MEAN CORPUSCULAR HGB 20.1 pg (27.0-31.0); MEAN CORPUSCULAR HGB CONC 24.1 g/dl (33.0-37.0); MEAN PLATELET VOLUME 10.2 fl (9.6-12.3); MONO # 0.8 10*3/uL (0.1-1.0); MONO % 8.3 % (3.0-9.0); NEUT # 5.9 10*3/uL (2.3-7.9); NEUT % 63.4 % (47.0-73.0); PLATELET COUNT AUTOMATED 529 10*3/uL (130-400); RED BLOOD COUNT 3.68 10*6/uL (4.50-5.90); RED CELL DISTRI WIDTH 18.5 % (0-14.5); WHITE BLOOD COUNT 9.3 10*3/uL (4.8-10.8)
[2020-08-10 07:17] LABS: BUN 17 mg/dl (7-24); CHLORIDE 95 mmol/L (98-107); CREATININE 0.78 mg/dL (0.70-1.30); POTASSIUM 3.5 mmol/L (3.5-5.1); SODIUM 138 mmol/L (136-145)
[2020-08-10 07:45] LABS: ABG BASE EXCESS 14.2 mmol/L (-2.0-2.0); ARTERIAL BLOOD GAS PH 7.308 (7.35-7.45)
[2020-08-10 08:00] VITALS: BP 120/60
--- NOTE | 2020-08-10 10:40 | NUR ---
Basic Sciences Dean in to talk to patient. Patient states lives at home with girlfriend. There are no steps in the home. Physician: nuria menard [facility] Home health services: none Patient's level of ADLs: INDEPENDENT Patient has working utilities: all working DME: home oxygen 6l/min, portable tanks, bipap from [facility] patient Follow-up physician's appointment after d/c: will be made by hospitalist nurse director upon discharge Does patient want to access PORTAL?: no Discharge plan discussed with patient, he states he lives at home with family, he is independent in adls and ambulation, he has home oyxgen he wears at 6l/min, portable tanks and bipap, he states he will return home when discharged and denies any home needs, case management will follow. EAN MAX
--- NOTE | 2020-08-10 15:20 | NUR ---
NOTIFIED OF ABG RESULTS. REPEAT ORDERED FOR THE AM. ENCOURAGED PT TO USE BIPAP.
[2020-08-10 15:30] LABS: ABG BASE EXCESS 14.4 mmol/L (-2.0-2.0); ARTERIAL BLOOD GAS PH 7.296 (7.35-7.45)
[2020-08-10 16:00] VITALS: BP 139/73
--- NOTE | 2020-08-10 19:35 | NUR ---
PT ASLEEP AT THIS TIME. BIPAP IN USE. WILL MONITOR.
[2020-08-10 20:00] VITALS: BP 133/65
--- NOTE | 2020-08-10 22:32 | NUR ---
PT TOLERATED ROUTINE MED WITH NO PROBLEM. BSG-143, SEE EMAR. BIPAP IN USE. NO COMPLAINTS. CALL LIGHT IN REACH.
--- NOTE | 2020-08-10 23:30 | NUR ---
Pt resting on BiPap 22/10 and FiO2 40%. Alarms on and audible.
[2020-08-11] VITALS: BP 124/63
--- NOTE | 2020-08-11 03:32 | NUR ---
PT ASLEEP IN BED. RESPIRATIONS EASY. NO S/S OF DISTRESS NOTED. WILL MONITOR. CALL LIGHT IN REACH.
[2020-08-11 07:04] LABS: BASO # 0.1 10*3/uL (0.0-0.1); BASO % 0.6 % (0.0-1.0); EOS # 0.1 10*3/uL (0.0-0.4); HEMATOCRIT 30.1 % (42.0-52.0); LYMPH # 2.8 10*3/uL (1.3-4.4); LYMPH % 25.5 % (27.0-41.0); MEAN CELL VOLUME 83.4 fl (80.0-94.0); MEAN CORPUSCULAR HGB 20.2 pg (27.0-31.0); MEAN CORPUSCULAR HGB CONC 24.3 g/dl (33.0-37.0); MEAN PLATELET VOLUME 10.1 fl (9.6-12.3); MONO # 0.9 10*3/uL (0.1-1.0); MONO % 8.7 % (3.0-9.0); NEUT # 6.9 10*3/uL (2.3-7.9); NEUT % 63.9 % (47.0-73.0); PLATELET COUNT AUTOMATED 500 10*3/uL (130-400); RED BLOOD COUNT 3.61 10*6/uL (4.50-5.90); RED CELL DISTRI WIDTH 18.6 % (0-14.5); WHITE BLOOD COUNT 10.8 10*3/uL (4.8-10.8)
[2020-08-11 07:34] LABS: ABG BASE EXCESS 14.6 mmol/L (-2.0-2.0); ARTERIAL BLOOD GAS PH 7.338 (7.35-7.45)
[2020-08-11 07:35] LABS: BUN 17 mg/dl (7-24); CHLORIDE 95 mmol/L (98-107); CREATININE 0.75 mg/dL (0.70-1.30); POTASSIUM 3.4 mmol/L (3.5-5.1); SODIUM 139 mmol/L (136-145)
[2020-08-11 08:00] VITALS: BP 137/64
[2020-08-11 12:00] VITALS: BP 136/72
--- NOTE | 2020-08-11 12:11 | NUR ---
case management visits with patient, he will return home when discharged and denies any home needs, case management will follow
[2020-08-11 16:00] VITALS: BP 149/59
[2020-08-11 20:00] VITALS: BP 126/52
[2020-08-12] VITALS: BP 121/51
[2020-08-12 06:55] LABS: BASO # 0.1 10*3/uL (0.0-0.1); BASO % 0.6 % (0.0-1.0); EOS # 0.1 10*3/uL (0.0-0.4); EOS % 1.3 % (1.0-4.0); HEMATOCRIT 30.6 % (42.0-52.0); LYMPH # 2.7 10*3/uL (1.3-4.4); LYMPH % 25.5 % (27.0-41.0); MEAN CELL VOLUME 83.2 fl (80.0-94.0); MEAN CORPUSCULAR HGB 20.1 pg (27.0-31.0); MEAN CORPUSCULAR HGB CONC 24.2 g/dl (33.0-37.0); MEAN PLATELET VOLUME 10.3 fl (9.6-12.3); MONO # 0.9 10*3/uL (0.1-1.0); MONO % 8.3 % (3.0-9.0); NEUT # 6.8 10*3/uL (2.3-7.9); PLATELET COUNT AUTOMATED 478 10*3/uL (130-400); RED BLOOD COUNT 3.68 10*6/uL (4.50-5.90); RED CELL DISTRI WIDTH 18.6 % (0-14.5); WHITE BLOOD COUNT 10.6 10*3/uL (4.8-10.8)
[2020-08-12 07:09] LABS: BUN 15 mg/dl (7-24); CHLORIDE 95 mmol/L (98-107); CREATININE 0.72 mg/dL (0.70-1.30); POTASSIUM 3.5 mmol/L (3.5-5.1); SODIUM 138 mmol/L (136-145)
--- NOTE | 2020-08-12 07:38 | NUR ---
NOTIFIED OF CO2 45.
[2020-08-12 08:00] VITALS: BP 134/63
--- NOTE | 2020-08-12 09:00 | NUR ---
case management talks with patient, he states he will return home when discharged and denies any home needs, case management will follow
[2020-08-12 12:00] VITALS: BP 114/45
[2020-08-12 16:00] VITALS: BP 151/67
[2020-08-12 20:00] VITALS: BP 147/71
[2020-08-13] VITALS: BP 134/67
[2020-08-13 06:27] LABS: BASO # 0.1 10*3/uL (0.0-0.1); BASO % 0.5 % (0.0-1.0); EOS # 0.1 10*3/uL (0.0-0.4); EOS % 1.1 % (1.0-4.0); HEMATOCRIT 29.7 % (42.0-52.0); LYMPH # 2.8 10*3/uL (1.3-4.4); LYMPH % 25.6 % (27.0-41.0); MEAN CELL VOLUME 81.6 fl (80.0-94.0); MEAN CORPUSCULAR HGB 20.1 pg (27.0-31.0); MEAN CORPUSCULAR HGB CONC 24.6 g/dl (33.0-37.0); MEAN PLATELET VOLUME 9.8 fl (9.6-12.3); MONO # 0.8 10*3/uL (0.1-1.0); MONO % 7.6 % (3.0-9.0); NEUT # 7.2 10*3/uL (2.3-7.9); NEUT % 64.9 % (47.0-73.0); PLATELET COUNT AUTOMATED 441 10*3/uL (130-400); RED BLOOD COUNT 3.64 10*6/uL (4.50-5.90); RED CELL DISTRI WIDTH 18.4 % (0-14.5); WHITE BLOOD COUNT 11.1 10*3/uL (4.8-10.8)
[2020-08-13 06:33] LABS: BUN 14 mg/dl (7-24); CHLORIDE 96 mmol/L (98-107); CREATININE 0.66 mg/dL (0.70-1.30); POTASSIUM 3.4 mmol/L (3.5-5.1); SODIUM 139 mmol/L (136-145)
[2020-08-13 08:00] VITALS: BP 138/54
[2020-08-13 12:00] VITALS: BP 141/51
--- NOTE | 2020-08-13 14:02 | NUR ---
Discharge instructions reviewed with patient/family. Patient receptive and verbalizes understanding. Follow-up care arranged. Written instructions given to patient/family. CHARLIE VELEZ
== END 2020-08-13 14:02 | disposition home or self-care (01) | DRG 291 ==
LOC: ED 14:16 → EDHOLD 17:47 → 4E 17:47
PROVIDERS: Emergency Medicine; Internal Medicine Critical Care Medicine; Physician Assistant; Student in an Organized Health Care Education/Training Program; ADMIT Student in an Organized Health Care Education/Training Program; ATTEND Student in an Organized Health Care Education/Training Program
PROC: 5A09357 Assistance with Respiratory Ventilation, Less than 24 Consecutive Hours, Continuous Positive Airway Pressure (ICD-10-PCS; principal; 2020-08-09)
PROC: 5A09357 Assistance with Respiratory Ventilation, Less than 24 Consecutive Hours, Continuous Positive Airway Pressure (ICD-10-PCS; 2020-08-10)
PROC: 5A09357 Assistance with Respiratory Ventilation, Less than 24 Consecutive Hours, Continuous Positive Airway Pressure (ICD-10-PCS; 2020-08-11)
PROC: 5A09357 Assistance with Respiratory Ventilation, Less than 24 Consecutive Hours, Continuous Positive Airway Pressure (ICD-10-PCS; 2020-08-12)
DX: I50.33 Acute on chronic diastolic (congestive) heart failure (principal); J96.21 Acute and chronic respiratory failure with hypoxia; E44.1 Mild protein-calorie malnutrition; J44.0 Chronic obstructive pulmonary disease with (acute) lower respiratory infection; R18.8 Other ascites; J98.11 Atelectasis; I48.20 Chronic atrial fibrillation, unspecified; I48.21 Permanent atrial fibrillation; E87.3 Alkalosis; Z68.42 Body mass index [BMI] 45.0-49.9, adult; F17.210 Nicotine dependence, cigarettes, uncomplicated; E66.01 Morbid (severe) obesity due to excess calories; E11.22 Type 2 diabetes mellitus with diabetic chronic kidney disease; D47.3 Essential (hemorrhagic) thrombocythemia; D64.9 Anemia, unspecified; G47.33 Obstructive sleep apnea (adult) (pediatric); I27.81 Cor pulmonale (chronic); E11.65 Type 2 diabetes mellitus with hyperglycemia; E87.6 Hypokalemia; J45.909 Unspecified asthma, uncomplicated; R16.0 Hepatomegaly, not elsewhere classified; R19.7 Diarrhea, unspecified; Z79.51 Long term (current) use of inhaled steroids; Z79.84 Long term (current) use of oral hypoglycemic drugs; Z79.899 Other long term (current) drug therapy; Z71.6 Tobacco abuse counseling; Z99.81 Dependence on supplemental oxygen; Q33.1 Accessory lobe of lung; Z82.49 Family history of ischemic heart disease and other diseases of the circulatory system

== ENCOUNTER 2020-08-15 13:22 | Emergency (ER) | payer OTHER ==
[~2020-08-15] VITALS: Ht 177.8 cm; Wt 147.9 kg
[2020-08-15 13:58] LABS: BASO # 0.1 10*3/uL (0.0-0.1); BASO % 0.8 % (0.0-1.0); EOS # 0.1 10*3/uL (0.0-0.4); EOS % 0.9 % (1.0-4.0); HEMATOCRIT 31.8 % (42.0-52.0); LYMPH # 2.1 10*3/uL (1.3-4.4); LYMPH % 20.2 % (27.0-41.0); MEAN CELL VOLUME 82.4 fl (80.0-94.0); MEAN CORPUSCULAR HGB 19.9 pg (27.0-31.0); MEAN CORPUSCULAR HGB CONC 24.2 g/dl (33.0-37.0); MEAN PLATELET VOLUME 10.3 fl (9.6-12.3); MONO # 0.8 10*3/uL (0.1-1.0); MONO % 7.5 % (3.0-9.0); NEUT # 7.5 10*3/uL (2.3-7.9); NEUT % 70.1 % (47.0-73.0); PLATELET COUNT AUTOMATED 390 10*3/uL (130-400); RED BLOOD COUNT 3.86 10*6/uL (4.50-5.90); RED CELL DISTRI WIDTH 18.7 % (0-14.5); WHITE BLOOD COUNT 10.6 10*3/uL (4.8-10.8)
[2020-08-15 14:08] LABS: INTERNATIONAL NORM RATIO 1.3 (2.0-3.5)
[2020-08-15 14:18] LABS: ALBUMIN 3.1 gm/dl (3.1-4.5); ALKALINE PHOSPHATASE 108 U/L (45-117); BUN 10 mg/dl (7-24); CHLORIDE 98 mmol/L (98-107); CREATININE 0.91 mg/dL (0.70-1.30); LIPASE 128 U/L (73-393); POTASSIUM 3.6 mmol/L (3.5-5.1); SGOT/AST 10 IU/L (3-35); SGPT/ALT 9 U/L (12-78); SODIUM 141 mmol/L (136-145); TOTAL PROTEIN 6.7 gm/dL (6.4-8.2)
[2020-08-15 14:30] LABS: TROPONIN I < 0.015 ng/ml (<0.045)
== END 2020-08-15 15:28 | disposition left against medical advice (07) ==
LOC: ED 13:22
PROVIDERS: Physician Assistant
DX: R07.9 Chest pain, unspecified (principal); R06.02 Shortness of breath; F17.200 Nicotine dependence, unspecified, uncomplicated; Z79.899 Other long term (current) drug therapy; Z79.4 Long term (current) use of insulin

== ENCOUNTER 2020-09-01 12:54 | Emergency (ER) | payer OTHER ==
[~2020-09-01] VITALS: Ht 177.8 cm; Wt 141.3 kg
[2020-09-01 13:02] VITALS: BP 150/68
== END 2020-09-01 15:01 | disposition left against medical advice (07) ==
LOC: ED 12:54
DX: R06.02 Shortness of breath (principal); Z53.21 Procedure and treatment not carried out due to patient leaving prior to being seen by health care provider

== ENCOUNTER 2020-10-08 09:36 | Inpatient (IN) | payer OTHER ==
[~2020-10-08] VITALS: Ht 177.8 cm; Wt 145.3 kg
[2020-10-08] VITALS (31 sets, daily range): BP systolic 90–144; BP diastolic 27–65
[2020-10-08 10:05] LABS: MEAN CORPUSCULAR HGB CONC 23.5 g/dl (33.0-37.0); MEAN PLATELET VOLUME 10.9 fl (9.6-12.3); NUCLEATED RED BLOOD CELL 0.1 % (0.0-0.0); PLATELET COUNT AUTOMATED 476 10*3/uL (130-400); RED BLOOD COUNT 2.42 10*6/uL (4.50-5.90); RED CELL DISTRI WIDTH 19.1 % (0-14.5); WHITE BLOOD COUNT 15.3 10*3/uL (4.8-10.8)
[2020-10-08 10:08] LABS: HEMATOCRIT 19.6 % (42.0-52.0)
[2020-10-08 10:15] LABS: ACT PARTIAL THROMBO TIME 25.8 SECONDS (20.0-32.1); INTERNATIONAL NORM RATIO 1.2 (2.0-3.5)
[2020-10-08 10:23] LABS: ALBUMIN 2.6 gm/dl (3.1-4.5); ALKALINE PHOSPHATASE 96 U/L (45-117); BASOPHILS 1 % (0-1); BUN 10 mg/dl (7-24); CHLORIDE 96 mmol/L (98-107); CREATININE 1.09 mg/dL (0.70-1.30); PLATELET SUFFICIENCY HIGH (NORMAL); POLYCHROMASIA MODERATE; POTASSIUM 3.2 mmol/L (3.5-5.1); SODIUM 137 mmol/L (136-145); TOTAL CELLS COUNTED 100 #CELLS; TOTAL PROTEIN 5.6 gm/dL (6.4-8.2)
[2020-10-08 10:26] LABS: SGOT/AST < 3 IU/L (3-35); SGPT/ALT < 6 U/L (12-78); TROPONIN I < 0.015 ng/ml (<0.045)
[2020-10-08 10:54] LABS: ABG BASE EXCESS 9.2 mmol/L (-2.0-2.0); ARTERIAL BLOOD GAS PH 7.346 (7.35-7.45)
[2020-10-08 13:11] LABS: IRON 21 ug/dL (65-175); TOTAL IRON BINDING CAPACITY 335 ug/dl (250-450)
[2020-10-08 16:51] LABS: MEAN CELL VOLUME 79.3 fl (80.0-94.0); MEAN CORPUSCULAR HGB 19.8 pg (27.0-31.0); MEAN PLATELET VOLUME 9.9 fl (9.6-12.3); PLATELET COUNT AUTOMATED 383 10*3/uL (130-400); RED BLOOD COUNT 2.27 10*6/uL (4.50-5.90); RED CELL DISTRI WIDTH 18.6 % (0-14.5)
[2020-10-08 17:09] LABS: TOTAL CELLS COUNTED 100 #CELLS
[2020-10-08 17:10] LABS: MICROCYTOSIS SLIGHT; PLATELET SUFFICIENCY NORMAL (NORMAL); STOMATOCYTE FEW; TARGET CELLS FEW
[2020-10-08 20:11] LABS: MEAN CELL VOLUME 80.7 fl (80.0-94.0); MEAN CORPUSCULAR HGB 20.9 pg (27.0-31.0); MEAN CORPUSCULAR HGB CONC 25.9 g/dl (33.0-37.0); MEAN PLATELET VOLUME 9.8 fl (9.6-12.3); PLATELET COUNT AUTOMATED 365 10*3/uL (130-400); RED BLOOD COUNT 2.44 10*6/uL (4.50-5.90); RED CELL DISTRI WIDTH 18.2 % (0-14.5); WHITE BLOOD COUNT 12.8 10*3/uL (4.8-10.8)
[2020-10-08 20:28] LABS: HEMATOCRIT 19.7 % (42.0-52.0)
[2020-10-08 20:34] LABS: ATYPICAL LYMPHS 1 % (0-0); BASOPHILS 1 % (0-1); PLATELET SUFFICIENCY NORMAL (NORMAL); STOMATOCYTE FEW; TOTAL CELLS COUNTED 100 #CELLS
[2020-10-08 23:43] LABS: MEAN CELL VOLUME 81.5 fl (80.0-94.0); MEAN CORPUSCULAR HGB 22.5 pg (27.0-31.0); MEAN CORPUSCULAR HGB CONC 27.6 g/dl (33.0-37.0); MEAN PLATELET VOLUME 9.4 fl (9.6-12.3); PLATELET COUNT AUTOMATED 305 10*3/uL (130-400); RED BLOOD COUNT 2.49 10*6/uL (4.50-5.90); RED CELL DISTRI WIDTH 18.2 % (0-14.5); WHITE BLOOD COUNT 11.9 10*3/uL (4.8-10.8)
[2020-10-08 23:47] LABS: HEMATOCRIT 20.3 % (42.0-52.0)
[2020-10-09] VITALS (60 sets, daily range): BP systolic 88–138; BP diastolic 6–90
[2020-10-09 00:02] LABS: TOTAL CELLS COUNTED 100 #CELLS
[2020-10-09 00:04] LABS: MICROCYTOSIS MODERATE
[2020-10-09 00:05] LABS: PLATELET SUFFICIENCY NORMAL (NORMAL)
[2020-10-09 02:15] LABS: MEAN CELL VOLUME 82.5 fl (80.0-94.0); MEAN CORPUSCULAR HGB 23.1 pg (27.0-31.0); MEAN PLATELET VOLUME 9.6 fl (9.6-12.3); PLATELET COUNT AUTOMATED 299 10*3/uL (130-400); RED BLOOD COUNT 2.51 10*6/uL (4.50-5.90); RED CELL DISTRI WIDTH 17.9 % (0-14.5)
[2020-10-09 02:21] LABS: HEMATOCRIT 20.7 % (42.0-52.0)
[2020-10-09 02:30] LABS: INTERNATIONAL NORM RATIO 1.2 (2.0-3.5)
[2020-10-09 02:34] LABS: BASOPHILS 1 % (0-1); MICROCYTOSIS MODERATE; PLATELET SUFFICIENCY NORMAL (NORMAL); TOTAL CELLS COUNTED 100 #CELLS
[2020-10-09 07:45] LABS: HEMATOCRIT 22.3 % (42.0-52.0); MEAN CELL VOLUME 84.2 fl (80.0-94.0); MEAN CORPUSCULAR HGB 23.8 pg (27.0-31.0); MEAN CORPUSCULAR HGB CONC 28.3 g/dl (33.0-37.0); MEAN PLATELET VOLUME 10.3 fl (9.6-12.3); PLATELET COUNT AUTOMATED 315 10*3/uL (130-400); RED BLOOD COUNT 2.65 10*6/uL (4.50-5.90); RED CELL DISTRI WIDTH 18.1 % (0-14.5); WHITE BLOOD COUNT 12.6 10*3/uL (4.8-10.8)
[2020-10-09 07:51] LABS: ALBUMIN 2.7 gm/dl (3.1-4.5); ALKALINE PHOSPHATASE 89 U/L (45-117); BUN 11 mg/dl (7-24); CHLORIDE 100 mmol/L (98-107); POTASSIUM 3.6 mmol/L (3.5-5.1); SGPT/ALT 8 U/L (12-78); SODIUM 138 mmol/L (136-145); TOTAL PROTEIN 5.7 gm/dL (6.4-8.2)
[2020-10-09 07:55] LABS: SGOT/AST < 3 IU/L (3-35)
[2020-10-09 08:02] LABS: PLATELET SUFFICIENCY NORMAL (NORMAL); POLYCHROMASIA MODERATE; TOTAL CELLS COUNTED 100 #CELLS
[2020-10-09 15:35] LABS: HEMATOCRIT 21.6 % (42.0-52.0); MEAN CORPUSCULAR HGB CONC 28.2 g/dl (33.0-37.0); MEAN PLATELET VOLUME 10.5 fl (9.6-12.3); PLATELET COUNT AUTOMATED 268 10*3/uL (130-400); RED BLOOD COUNT 2.54 10*6/uL (4.50-5.90); RED CELL DISTRI WIDTH 18.1 % (0-14.5)
[2020-10-09 16:04] LABS: PLATELET SUFFICIENCY NORMAL (NORMAL); TOTAL CELLS COUNTED 100 #CELLS
[2020-10-09 16:05] LABS: OVALOCYTES FEW; POLYCHROMASIA SLIGHT; STOMATOCYTE FEW
[2020-10-09 20:08] LABS: HEMATOCRIT 22.2 % (42.0-52.0); MEAN CELL VOLUME 87.4 fl (80.0-94.0); MEAN CORPUSCULAR HGB CONC 27.5 g/dl (33.0-37.0); MEAN PLATELET VOLUME 10.2 fl (9.6-12.3); PLATELET COUNT AUTOMATED 256 10*3/uL (130-400); RED BLOOD COUNT 2.54 10*6/uL (4.50-5.90); RED CELL DISTRI WIDTH 18.1 % (0-14.5); WHITE BLOOD COUNT 11.3 10*3/uL (4.8-10.8)
[2020-10-09 20:26] LABS: BASOPHILS 2 % (0-1); OVALOCYTES FEW; PLATELET SUFFICIENCY NORMAL (NORMAL); POLYCHROMASIA SLIGHT; STOMATOCYTE MODERATE; TOTAL CELLS COUNTED 100 #CELLS
[2020-10-10] VITALS (22 sets, daily range): BP systolic 102–135; BP diastolic 32–74
[2020-10-10 03:28] LABS: HEMATOCRIT 21.5 % (42.0-52.0); MEAN CELL VOLUME 85.3 fl (80.0-94.0); MEAN CORPUSCULAR HGB 24.2 pg (27.0-31.0); MEAN CORPUSCULAR HGB CONC 28.4 g/dl (33.0-37.0); MEAN PLATELET VOLUME 9.5 fl (9.6-12.3); NUCLEATED RED BLOOD CELL 0.2 % (0.0-0.0); PLATELET COUNT AUTOMATED 229 10*3/uL (130-400); RED BLOOD COUNT 2.52 10*6/uL (4.50-5.90); RED CELL DISTRI WIDTH 18.3 % (0-14.5); WHITE BLOOD COUNT 10.1 10*3/uL (4.8-10.8)
[2020-10-10 03:49] LABS: MICROCYTOSIS MODERATE; PLATELET SUFFICIENCY NORMAL (NORMAL); TOTAL CELLS COUNTED 100 #CELLS
[2020-10-10 10:46] LABS: ALBUMIN 2.8 gm/dl (3.1-4.5); ALKALINE PHOSPHATASE 86 U/L (45-117); BUN 15 mg/dl (7-24); CHLORIDE 97 mmol/L (98-107); CREATININE 1.44 mg/dL (0.70-1.30); POTASSIUM 3.6 mmol/L (3.5-5.1); SGPT/ALT 10 U/L (12-78); SODIUM 134 mmol/L (136-145); TOTAL PROTEIN 6.1 gm/dL (6.4-8.2)
[2020-10-10 10:48] LABS: HEMATOCRIT 23.4 % (42.0-52.0); MEAN CELL VOLUME 86.3 fl (80.0-94.0); MEAN CORPUSCULAR HGB 24.4 pg (27.0-31.0); MEAN CORPUSCULAR HGB CONC 28.2 g/dl (33.0-37.0); MEAN PLATELET VOLUME 10.9 fl (9.6-12.3); NUCLEATED RED BLOOD CELL 0.2 % (0.0-0.0); PLATELET COUNT AUTOMATED 238 10*3/uL (130-400); RED BLOOD COUNT 2.71 10*6/uL (4.50-5.90); RED CELL DISTRI WIDTH 18.1 % (0-14.5); SGOT/AST < 3 IU/L (3-35)
[2020-10-10 11:06] LABS: PLATELET SUFFICIENCY NORMAL (NORMAL); TOTAL CELLS COUNTED 100 #CELLS
[2020-10-10 11:07] LABS: OVALOCYTES FEW; STOMATOCYTE FEW
[2020-10-10 19:05] LABS: HEMATOCRIT 25.7 % (42.0-52.0)
[2020-10-11] VITALS: BP 116/66
[2020-10-11 04:00] VITALS: BP 136/46
[2020-10-11 06:10] LABS: BASO % 0.5 % (0.0-1.0); EOS # 0.2 10*3/uL (0.0-0.4); EOS % 1.7 % (1.0-4.0); HEMATOCRIT 24.7 % (42.0-52.0); LYMPH % 23.1 % (27.0-41.0); MEAN CELL VOLUME 87.3 fl (80.0-94.0); MEAN CORPUSCULAR HGB 25.1 pg (27.0-31.0); MEAN CORPUSCULAR HGB CONC 28.7 g/dl (33.0-37.0); MEAN PLATELET VOLUME 10.3 fl (9.6-12.3); MONO # 0.7 10*3/uL (0.1-1.0); MONO % 8.6 % (3.0-9.0); NEUT # 5.7 10*3/uL (2.3-7.9); NEUT % 65.6 % (47.0-73.0); PLATELET COUNT AUTOMATED 220 10*3/uL (130-400); POTASSIUM 3.2 mmol/L (3.5-5.1); RED BLOOD COUNT 2.83 10*6/uL (4.50-5.90); RED CELL DISTRI WIDTH 18.4 % (0-14.5); WHITE BLOOD COUNT 8.6 10*3/uL (4.8-10.8)
[2020-10-11 06:12] LABS: CREATININE 1.57 mg/dL (0.70-1.30)
[2020-10-11 08:00] VITALS: BP 146/47
[2020-10-11 16:00] VITALS: BP 118/49
[2020-10-11 20:00] VITALS: BP 106/54
[2020-10-12] VITALS: BP 138/59
[2020-10-12 06:49] LABS: BASO % 0.5 % (0.0-1.0); EOS # 0.2 10*3/uL (0.0-0.4); EOS % 2.1 % (1.0-4.0); LYMPH # 1.8 10*3/uL (1.3-4.4); LYMPH % 21.4 % (27.0-41.0); MEAN CELL VOLUME 87.1 fl (80.0-94.0); MEAN CORPUSCULAR HGB 24.7 pg (27.0-31.0); MEAN CORPUSCULAR HGB CONC 28.4 g/dl (33.0-37.0); MEAN PLATELET VOLUME 10.8 fl (9.6-12.3); MONO # 0.7 10*3/uL (0.1-1.0); MONO % 8.1 % (3.0-9.0); NEUT # 5.5 10*3/uL (2.3-7.9); NEUT % 67.5 % (47.0-73.0); PLATELET COUNT AUTOMATED 226 10*3/uL (130-400); RED BLOOD COUNT 2.87 10*6/uL (4.50-5.90); RED CELL DISTRI WIDTH 18.6 % (0-14.5); WHITE BLOOD COUNT 8.2 10*3/uL (4.8-10.8)
[2020-10-12 06:52] LABS: CREATININE 1.54 mg/dL (0.70-1.30); POTASSIUM 3.4 mmol/L (3.5-5.1)
[2020-10-12 08:00] VITALS: BP 112/50
[2020-10-12 12:00] VITALS: BP 116/48
[2020-10-12 16:00] VITALS: BP 110/57
[2020-10-12 20:00] VITALS: BP 117/61
[2020-10-13 06:46] LABS: BASO % 0.5 % (0.0-1.0); EOS # 0.2 10*3/uL (0.0-0.4); EOS % 2.1 % (1.0-4.0); LYMPH # 1.7 10*3/uL (1.3-4.4); LYMPH % 21.7 % (27.0-41.0); MEAN CELL VOLUME 89.3 fl (80.0-94.0); MEAN CORPUSCULAR HGB 25.4 pg (27.0-31.0); MEAN CORPUSCULAR HGB CONC 28.4 g/dl (33.0-37.0); MEAN PLATELET VOLUME 10.4 fl (9.6-12.3); MONO # 0.6 10*3/uL (0.1-1.0); MONO % 8.2 % (3.0-9.0); NEUT # 5.1 10*3/uL (2.3-7.9); NEUT % 67.2 % (47.0-73.0); PLATELET COUNT AUTOMATED 213 10*3/uL (130-400); RED CELL DISTRI WIDTH 18.6 % (0-14.5); WHITE BLOOD COUNT 7.6 10*3/uL (4.8-10.8)
[2020-10-13 07:29] LABS: ALBUMIN 2.9 gm/dl (3.1-4.5); CHLORIDE 97 mmol/L (98-107); POTASSIUM 3.7 mmol/L (3.5-5.1); SODIUM 135 mmol/L (136-145)
[2020-10-13 07:34] LABS: ALKALINE PHOSPHATASE 100 U/L (45-117); BUN 24 mg/dl (7-24); CREATININE 1.46 mg/dL (0.70-1.30); SGOT/AST 4 IU/L (3-35); SGPT/ALT 6 U/L (12-78); TOTAL PROTEIN 6.3 gm/dL (6.4-8.2)
[2020-10-13 08:00] VITALS: BP 122/56
[2020-10-13 12:00] VITALS: BP 123/57
== END 2020-10-13 15:13 | disposition home or self-care (01) | DRG 377 ==
LOC: ED 09:36 → 5E 10:18 → EDHOLD 10:18 → ICCU 10:18 → EDHOLD 11:02 → ICCU 11:17 → 5E 10-11 18:47
PROVIDERS: Emergency Medicine; Internal Medicine; Social Worker Clinical; Student in an Organized Health Care Education/Training Program; ADMIT Internal Medicine; ATTEND Internal Medicine
PROC: 30233N1 Transfusion of Nonautologous Red Blood Cells into Peripheral Vein, Percutaneous Approach (ICD-10-PCS; 2020-10-08)
PROC: 5A09357 Assistance with Respiratory Ventilation, Less than 24 Consecutive Hours, Continuous Positive Airway Pressure (ICD-10-PCS; 2020-10-08)
PROC: 0DB68ZX Excision of Stomach, Via Natural or Artificial Opening Endoscopic, Diagnostic (ICD-10-PCS; principal; 2020-10-09)
PROC: 0DBH8ZX Excision of Cecum, Via Natural or Artificial Opening Endoscopic, Diagnostic (ICD-10-PCS; 2020-10-09)
PROC: 0HBRXZZ Excision of Toe Nail, External Approach (ICD-10-PCS; 2020-10-09)
PROC: 0HBRXZZ Excision of Toe Nail, External Approach (ICD-10-PCS; 2020-10-09)
PROC: 0HBRXZZ Excision of Toe Nail, External Approach (ICD-10-PCS; 2020-10-09)
PROC: 0HBRXZZ Excision of Toe Nail, External Approach (ICD-10-PCS; 2020-10-09)
PROC: 0HBRXZZ Excision of Toe Nail, External Approach (ICD-10-PCS; 2020-10-09)
PROC: 0HBRXZZ Excision of Toe Nail, External Approach (ICD-10-PCS; 2020-10-09)
PROC: 0HBRXZZ Excision of Toe Nail, External Approach (ICD-10-PCS; 2020-10-09)
PROC: 0HBRXZZ Excision of Toe Nail, External Approach (ICD-10-PCS; 2020-10-09)
PROC: 0HBRXZZ Excision of Toe Nail, External Approach (ICD-10-PCS; 2020-10-09)
PROC: 0HBRXZZ Excision of Toe Nail, External Approach (ICD-10-PCS; 2020-10-09)
PROC: 30233K1 Transfusion of Nonautologous Frozen Plasma into Peripheral Vein, Percutaneous Approach (ICD-10-PCS; 2020-10-09)
PROC: 30233R1 Transfusion of Nonautologous Platelets into Peripheral Vein, Percutaneous Approach (ICD-10-PCS; 2020-10-09)
PROC: 5A09357 Assistance with Respiratory Ventilation, Less than 24 Consecutive Hours, Continuous Positive Airway Pressure (ICD-10-PCS; 2020-10-09)
PROC: 5A09357 Assistance with Respiratory Ventilation, Less than 24 Consecutive Hours, Continuous Positive Airway Pressure (ICD-10-PCS; 2020-10-10)
PROC: 5A09357 Assistance with Respiratory Ventilation, Less than 24 Consecutive Hours, Continuous Positive Airway Pressure (ICD-10-PCS; 2020-10-13)
DX: K29.71 Gastritis, unspecified, with bleeding (principal); N17.0 Acute kidney failure with tubular necrosis; I50.32 Chronic diastolic (congestive) heart failure; R65.10 Systemic inflammatory response syndrome (SIRS) of non-infectious origin without acute organ dysfunction; E87.2 Acidosis; J96.12 Chronic respiratory failure with hypercapnia; J96.11 Chronic respiratory failure with hypoxia; I48.19 Other persistent atrial fibrillation; D64.9 Anemia, unspecified; J44.9 Chronic obstructive pulmonary disease, unspecified; E11.65 Type 2 diabetes mellitus with hyperglycemia; R16.0 Hepatomegaly, not elsewhere classified; I27.81 Cor pulmonale (chronic); I48.91 Unspecified atrial fibrillation; E66.01 Morbid (severe) obesity due to excess calories; G47.33 Obstructive sleep apnea (adult) (pediatric); M10.9 Gout, unspecified; F17.210 Nicotine dependence, cigarettes, uncomplicated; E87.6 Hypokalemia; K63.9 Disease of intestine, unspecified; B35.1 Tinea unguium; Z99.81 Dependence on supplemental oxygen; Z81.1 Family history of alcohol abuse and dependence; Z79.4 Long term (current) use of insulin; Z79.899 Other long term (current) drug therapy

== ENCOUNTER 2020-10-21 14:15 | Inpatient (IN) | payer OTHER ==
[~2020-10-21] VITALS: Ht 177.8 cm; Wt 149.0 kg
[2020-10-21 14:53] LABS: BASO # 0.1 10*3/uL (0.0-0.1); BASO % 0.7 % (0.0-1.0); EOS # 0.3 10*3/uL (0.0-0.4); EOS % 3.1 % (1.0-4.0); HEMATOCRIT 28.8 % (42.0-52.0); LYMPH # 1.7 10*3/uL (1.3-4.4); LYMPH % 17.7 % (27.0-41.0); MEAN CELL VOLUME 88.1 fl (80.0-94.0); MEAN CORPUSCULAR HGB 23.9 pg (27.0-31.0); MEAN CORPUSCULAR HGB CONC 27.1 g/dl (33.0-37.0); MEAN PLATELET VOLUME 9.8 fl (9.6-12.3); MONO # 0.7 10*3/uL (0.1-1.0); NEUT # 6.7 10*3/uL (2.3-7.9); NEUT % 71.2 % (47.0-73.0); PLATELET COUNT AUTOMATED 367 10*3/uL (130-400); RED BLOOD COUNT 3.27 10*6/uL (4.50-5.90); RED CELL DISTRI WIDTH 19.3 % (0-14.5); WHITE BLOOD COUNT 9.3 10*3/uL (4.8-10.8)
[2020-10-21 14:59] VITALS: BP 142/66
[2020-10-21 15:04] LABS: ACT PARTIAL THROMBO TIME 25.6 SECONDS (20.0-32.1); INTERNATIONAL NORM RATIO 1.1 (2.0-3.5)
[2020-10-21 15:09] LABS: ALKALINE PHOSPHATASE 111 U/L (45-117); BUN 14 mg/dl (7-24); CHLORIDE 97 mmol/L (98-107); LIPASE 156 U/L (73-393); POTASSIUM 3.6 mmol/L (3.5-5.1); SGOT/AST 6 IU/L (3-35); SGPT/ALT 8 U/L (12-78); SODIUM 141 mmol/L (136-145); TOTAL PROTEIN 6.9 gm/dL (6.4-8.2); TROPONIN I 0.015 ng/ml (<0.045)
[2020-10-21 17:53] VITALS: BP 134/58
[2020-10-21 19:01] VITALS: BP 155/55
[2020-10-22] VITALS: BP 140/59
[2020-10-22 06:10] LABS: BASO % 0.3 % (0.0-1.0); HEMATOCRIT 26.3 % (42.0-52.0); LYMPH # 0.6 10*3/uL (1.3-4.4); LYMPH % 8.1 % (27.0-41.0); MEAN CELL VOLUME 86.8 fl (80.0-94.0); MEAN CORPUSCULAR HGB 23.8 pg (27.0-31.0); MEAN CORPUSCULAR HGB CONC 27.4 g/dl (33.0-37.0); MEAN PLATELET VOLUME 10.7 fl (9.6-12.3); MONO # 0.1 10*3/uL (0.1-1.0); MONO % 1.2 % (3.0-9.0); NEUT # 6.7 10*3/uL (2.3-7.9); NEUT % 89.1 % (47.0-73.0); PLATELET COUNT AUTOMATED 340 10*3/uL (130-400); RED BLOOD COUNT 3.03 10*6/uL (4.50-5.90); RED CELL DISTRI WIDTH 19.3 % (0-14.5); WHITE BLOOD COUNT 7.5 10*3/uL (4.8-10.8)
[2020-10-22 06:33] LABS: BUN 15 mg/dl (7-24); CHLORIDE 95 mmol/L (98-107); POTASSIUM 3.9 mmol/L (3.5-5.1); SODIUM 138 mmol/L (136-145)
[2020-10-22 06:34] LABS: CREATININE 1.27 mg/dL (0.70-1.30)
[2020-10-22 12:00] VITALS: BP 124/46
[2020-10-22 16:00] VITALS: BP 157/68
[2020-10-22 17:34] LABS: ABG BASE EXCESS 10.8 mmol/L (-2.0-2.0); ARTERIAL BLOOD GAS PH 7.365 (7.35-7.45); ARTERIAL BLOOD GAS PO2 129.6 (80-90)
[2020-10-22 20:00] VITALS: BP 132/58
[2020-10-23] VITALS: BP 116/48
[2020-10-23 06:12] LABS: BASO % 0.1 % (0.0-1.0); HEMATOCRIT 26.7 % (42.0-52.0); LYMPH % 12.9 % (27.0-41.0); MEAN CELL VOLUME 87.8 fl (80.0-94.0); MEAN CORPUSCULAR HGB 23.7 pg (27.0-31.0); MEAN PLATELET VOLUME 10.6 fl (9.6-12.3); MONO # 0.6 10*3/uL (0.1-1.0); MONO % 8.2 % (3.0-9.0); NEUT % 78.4 % (47.0-73.0); PLATELET COUNT AUTOMATED 330 10*3/uL (130-400); RED BLOOD COUNT 3.04 10*6/uL (4.50-5.90); RED CELL DISTRI WIDTH 19.1 % (0-14.5); WHITE BLOOD COUNT 7.6 10*3/uL (4.8-10.8)
[2020-10-23 06:18] LABS: BUN 21 mg/dl (7-24); CHLORIDE 96 mmol/L (98-107); CREATININE 1.29 mg/dL (0.70-1.30); SODIUM 140 mmol/L (136-145)
[2020-10-23 08:00] VITALS: BP 153/69
[2020-10-23 12:00] VITALS: BP 147/62
[2020-10-23 16:00] VITALS: BP 113/58
[2020-10-23 20:00] VITALS: BP 102/44
[2020-10-24] VITALS: BP 126/47
[2020-10-24 05:43] LABS: BUN 28 mg/dl (7-24); CHLORIDE 93 mmol/L (98-107); CREATININE 1.26 mg/dL (0.70-1.30); POTASSIUM 4.1 mmol/L (3.5-5.1); SODIUM 136 mmol/L (136-145)
[2020-10-24 06:17] LABS: LYMPH # 0.8 10*3/uL (1.3-4.4); LYMPH % 11.2 % (27.0-41.0); MEAN CELL VOLUME 88.4 fl (80.0-94.0); MEAN CORPUSCULAR HGB 23.8 pg (27.0-31.0); MEAN CORPUSCULAR HGB CONC 26.9 g/dl (33.0-37.0); MONO # 0.5 10*3/uL (0.1-1.0); MONO % 7.4 % (3.0-9.0); NEUT # 5.9 10*3/uL (2.3-7.9); NEUT % 80.6 % (47.0-73.0); NUCLEATED RED BLOOD CELL 0.3 % (0.0-0.0); PLATELET COUNT AUTOMATED 311 10*3/uL (130-400); RED BLOOD COUNT 2.94 10*6/uL (4.50-5.90); RED CELL DISTRI WIDTH 19.1 % (0-14.5); WHITE BLOOD COUNT 7.3 10*3/uL (4.8-10.8)
[2020-10-24 08:00] VITALS: BP 148/67
[2020-10-24 12:00] VITALS: BP 113/59
[2020-10-24 16:00] VITALS: BP 152/60
[2020-10-24 20:00] VITALS: BP 116/48
[2020-10-25] VITALS: BP 116/44
[2020-10-25 05:30] LABS: ALBUMIN 3.2 gm/dl (3.1-4.5); ALKALINE PHOSPHATASE 85 U/L (45-117); BUN 31 mg/dl (7-24); CHLORIDE 94 mmol/L (98-107); CREATININE 1.12 mg/dL (0.70-1.30); POTASSIUM 3.9 mmol/L (3.5-5.1); SGOT/AST 7 IU/L (3-35); SGPT/ALT 12 U/L (12-78); SODIUM 140 mmol/L (136-145); TOTAL PROTEIN 6.5 gm/dL (6.4-8.2)
[2020-10-25 06:13] LABS: BASO % 0.1 % (0.0-1.0); HEMATOCRIT 26.5 % (42.0-52.0); LYMPH # 1.3 10*3/uL (1.3-4.4); LYMPH % 18.3 % (27.0-41.0); MEAN CELL VOLUME 88.6 fl (80.0-94.0); MEAN CORPUSCULAR HGB 23.4 pg (27.0-31.0); MEAN CORPUSCULAR HGB CONC 26.4 g/dl (33.0-37.0); MEAN PLATELET VOLUME 10.7 fl (9.6-12.3); MONO # 0.9 10*3/uL (0.1-1.0); MONO % 12.4 % (3.0-9.0); NEUT # 4.9 10*3/uL (2.3-7.9); NEUT % 68.6 % (47.0-73.0); NUCLEATED RED BLOOD CELL 0.3 % (0.0-0.0); PLATELET COUNT AUTOMATED 276 10*3/uL (130-400); RED BLOOD COUNT 2.99 10*6/uL (4.50-5.90); RED CELL DISTRI WIDTH 19.2 % (0-14.5); WHITE BLOOD COUNT 7.2 10*3/uL (4.8-10.8)
[2020-10-25 08:00] VITALS: BP 124/52
[2020-10-25 12:00] VITALS: BP 128/61
[2020-10-25 16:00] VITALS: BP 139/45
[2020-10-25 20:00] VITALS: BP 137/41
[2020-10-25 23:56] VITALS: BP 118/42
[2020-10-26 08:00] VITALS: BP 112/46
[2020-10-26 12:00] VITALS: BP 128/48
[2020-10-26 16:00] VITALS: BP 142/48
[2020-10-26 20:00] VITALS: BP 158/59
[2020-10-27] VITALS (14 sets, daily range): BP systolic 111–167; BP diastolic 50–68
[2020-10-27 06:07] LABS: BASO % 0.1 % (0.0-1.0); EOS % 0.1 % (1.0-4.0); HEMATOCRIT 25.9 % (42.0-52.0); LYMPH # 1.6 10*3/uL (1.3-4.4); LYMPH % 16.6 % (27.0-41.0); MEAN CELL VOLUME 87.2 fl (80.0-94.0); MEAN CORPUSCULAR HGB 23.6 pg (27.0-31.0); MEAN PLATELET VOLUME 10.9 fl (9.6-12.3); MONO # 0.7 10*3/uL (0.1-1.0); MONO % 7.9 % (3.0-9.0); NEUT % 74.9 % (47.0-73.0); PLATELET COUNT AUTOMATED 247 10*3/uL (130-400); RED BLOOD COUNT 2.97 10*6/uL (4.50-5.90); WHITE BLOOD COUNT 9.3 10*3/uL (4.8-10.8)
[2020-10-27 06:32] LABS: BUN 34 mg/dl (7-24); CHLORIDE 94 mmol/L (98-107); CREATININE 1.02 mg/dL (0.70-1.30); POTASSIUM 4.4 mmol/L (3.5-5.1); SODIUM 141 mmol/L (136-145)
[2020-10-27 08:23] LABS: ARTERIAL BLOOD GAS PH 7.398 (7.35-7.45); ARTERIAL BLOOD GAS PO2 101.1 (80-90)
[2020-10-28] VITALS: BP 138/56
[2020-10-28 06:08] LABS: BASO % 0.1 % (0.0-1.0); EOS % 0.3 % (1.0-4.0); HEMATOCRIT 28.1 % (42.0-52.0); LYMPH % 20.2 % (27.0-41.0); MEAN CELL VOLUME 85.4 fl (80.0-94.0); MEAN CORPUSCULAR HGB 23.7 pg (27.0-31.0); MEAN CORPUSCULAR HGB CONC 27.8 g/dl (33.0-37.0); MEAN PLATELET VOLUME 11.1 fl (9.6-12.3); MONO # 0.8 10*3/uL (0.1-1.0); MONO % 8.1 % (3.0-9.0); NEUT # 6.8 10*3/uL (2.3-7.9); NEUT % 70.9 % (47.0-73.0); PLATELET COUNT AUTOMATED 233 10*3/uL (130-400); RED BLOOD COUNT 3.29 10*6/uL (4.50-5.90); RED CELL DISTRI WIDTH 18.6 % (0-14.5); WHITE BLOOD COUNT 9.6 10*3/uL (4.8-10.8)
[2020-10-28 06:13] LABS: BUN 33 mg/dl (7-24); CHLORIDE 93 mmol/L (98-107); CREATININE 1.04 mg/dL (0.70-1.30); POTASSIUM 3.6 mmol/L (3.5-5.1); SODIUM 139 mmol/L (136-145)
[2020-10-28 08:00] VITALS: BP 154/66
[2020-10-28 12:00] VITALS: BP 100/45
[2020-10-28 16:00] VITALS: BP 149/74
[2020-10-28 20:00] VITALS: BP 151/66
[2020-10-29] VITALS: BP 145/55
[2020-10-29 08:00] VITALS: BP 126/56
[2020-10-29 12:00] VITALS: BP 138/56
[2020-10-29 13:40] LABS: BUN 30 mg/dl (7-24); CHLORIDE 91 mmol/L (98-107); POTASSIUM 3.5 mmol/L (3.5-5.1); SODIUM 140 mmol/L (136-145)
[2020-10-29 16:00] VITALS: BP 172/71
[2020-10-29 20:00] VITALS: BP 154/64
[2020-10-30] VITALS: BP 132/54
[2020-10-30 05:57] LABS: ALBUMIN 3.1 gm/dl (3.1-4.5); ALKALINE PHOSPHATASE 92 U/L (45-117); BUN 31 mg/dl (7-24); CHLORIDE 93 mmol/L (98-107); CREATININE 1.04 mg/dL (0.70-1.30); POTASSIUM 3.7 mmol/L (3.5-5.1); SGOT/AST 12 IU/L (3-35); SGPT/ALT 23 U/L (12-78); SODIUM 141 mmol/L (136-145); TOTAL PROTEIN 6.1 gm/dL (6.4-8.2)
[2020-10-30 06:23] LABS: EOS # 0.1 10*3/uL (0.0-0.4); EOS % 0.6 % (1.0-4.0); HEMATOCRIT 28.5 % (42.0-52.0); LYMPH # 1.8 10*3/uL (1.3-4.4); LYMPH % 16.7 % (27.0-41.0); MEAN CELL VOLUME 86.9 fl (80.0-94.0); MEAN CORPUSCULAR HGB 23.8 pg (27.0-31.0); MEAN CORPUSCULAR HGB CONC 27.4 g/dl (33.0-37.0); MEAN PLATELET VOLUME 11.9 fl (9.6-12.3); MONO # 0.9 10*3/uL (0.1-1.0); MONO % 8.4 % (3.0-9.0); NEUT # 7.9 10*3/uL (2.3-7.9); NEUT % 73.9 % (47.0-73.0); PLATELET COUNT AUTOMATED 214 10*3/uL (130-400); RED BLOOD COUNT 3.28 10*6/uL (4.50-5.90); RED CELL DISTRI WIDTH 18.8 % (0-14.5); WHITE BLOOD COUNT 10.7 10*3/uL (4.8-10.8)
[2020-10-30 08:00] VITALS: BP 131/54
[2020-10-30 12:00] VITALS: BP 135/55
[2020-10-30 16:00] VITALS: BP 150/56
[2020-10-30 20:00] VITALS: BP 143/53
[2020-10-31] VITALS: BP 130/53
[2020-10-31 06:54] LABS: BASO % 0.1 % (0.0-1.0); EOS # 0.1 10*3/uL (0.0-0.4); EOS % 0.7 % (1.0-4.0); HEMATOCRIT 28.7 % (42.0-52.0); LYMPH # 2.1 10*3/uL (1.3-4.4); LYMPH % 20.8 % (27.0-41.0); MEAN CELL VOLUME 87.5 fl (80.0-94.0); MEAN CORPUSCULAR HGB 23.5 pg (27.0-31.0); MEAN CORPUSCULAR HGB CONC 26.8 g/dl (33.0-37.0); MEAN PLATELET VOLUME 11.5 fl (9.6-12.3); MONO # 0.9 10*3/uL (0.1-1.0); MONO % 8.8 % (3.0-9.0); NEUT # 6.9 10*3/uL (2.3-7.9); NEUT % 69.2 % (47.0-73.0); PLATELET COUNT AUTOMATED 193 10*3/uL (130-400); RED BLOOD COUNT 3.28 10*6/uL (4.50-5.90); RED CELL DISTRI WIDTH 19.1 % (0-14.5); WHITE BLOOD COUNT 9.9 10*3/uL (4.8-10.8)
[2020-10-31 07:05] LABS: ALBUMIN 3.2 gm/dl (3.1-4.5); ALKALINE PHOSPHATASE 94 U/L (45-117); BUN 32 mg/dl (7-24); CHLORIDE 94 mmol/L (98-107); CREATININE 1.01 mg/dL (0.70-1.30); POTASSIUM 3.4 mmol/L (3.5-5.1); SGOT/AST 12 IU/L (3-35); SGPT/ALT 23 U/L (12-78); SODIUM 142 mmol/L (136-145); TOTAL PROTEIN 6.2 gm/dL (6.4-8.2)
[2020-10-31 08:00] VITALS: BP 139/64
[2020-10-31 12:00] VITALS: BP 147/45
[2020-10-31 16:00] VITALS: BP 142/53
[2020-10-31 20:00] VITALS: BP 123/60; BP 150/60
[2020-11-01] VITALS: BP 140/58
[2020-11-01 06:28] LABS: EOS % 0.2 % (1.0-4.0); HEMATOCRIT 28.2 % (42.0-52.0); LYMPH # 1.6 10*3/uL (1.3-4.4); LYMPH % 16.1 % (27.0-41.0); MEAN CELL VOLUME 87.3 fl (80.0-94.0); MEAN CORPUSCULAR HGB 23.8 pg (27.0-31.0); MEAN CORPUSCULAR HGB CONC 27.3 g/dl (33.0-37.0); MEAN PLATELET VOLUME 11.4 fl (9.6-12.3); MONO # 0.8 10*3/uL (0.1-1.0); MONO % 7.8 % (3.0-9.0); NEUT # 7.4 10*3/uL (2.3-7.9); NEUT % 75.5 % (47.0-73.0); PLATELET COUNT AUTOMATED 195 10*3/uL (130-400); RED BLOOD COUNT 3.23 10*6/uL (4.50-5.90); RED CELL DISTRI WIDTH 19.2 % (0-14.5); WHITE BLOOD COUNT 9.7 10*3/uL (4.8-10.8)
[2020-11-01 06:33] LABS: BUN 31 mg/dl (7-24); CHLORIDE 91 mmol/L (98-107); CREATININE 0.98 mg/dL (0.70-1.30); POTASSIUM 3.4 mmol/L (3.5-5.1); SODIUM 138 mmol/L (136-145)
[2020-11-01 08:00] VITALS: BP 129/69
[2020-11-01 12:00] VITALS: BP 131/55
[2020-11-01 16:00] VITALS: BP 134/69
[2020-11-01 20:00] VITALS: BP 140/60
[2020-11-02] VITALS: BP 144/69
[2020-11-02 06:54] LABS: BASO % 0.1 % (0.0-1.0); EOS # 0.1 10*3/uL (0.0-0.4); EOS % 0.8 % (1.0-4.0); HEMATOCRIT 29.5 % (42.0-52.0); LYMPH # 2.2 10*3/uL (1.3-4.4); LYMPH % 22.1 % (27.0-41.0); MEAN CELL VOLUME 89.9 fl (80.0-94.0); MEAN CORPUSCULAR HGB 24.1 pg (27.0-31.0); MEAN CORPUSCULAR HGB CONC 26.8 g/dl (33.0-37.0); MEAN PLATELET VOLUME 12.3 fl (9.6-12.3); MONO # 0.8 10*3/uL (0.1-1.0); MONO % 8.2 % (3.0-9.0); NEUT # 6.8 10*3/uL (2.3-7.9); NEUT % 68.5 % (47.0-73.0); PLATELET COUNT AUTOMATED 178 10*3/uL (130-400); RED BLOOD COUNT 3.28 10*6/uL (4.50-5.90); RED CELL DISTRI WIDTH 19.7 % (0-14.5); WHITE BLOOD COUNT 9.9 10*3/uL (4.8-10.8)
[2020-11-02 07:08] LABS: BUN 28 mg/dl (7-24); CHLORIDE 96 mmol/L (98-107); CREATININE 0.99 mg/dL (0.70-1.30); POTASSIUM 3.7 mmol/L (3.5-5.1); SODIUM 144 mmol/L (136-145)
[2020-11-02 08:00] VITALS: BP 150/50
[2020-11-02 12:00] VITALS: BP 109/56
[2020-11-02] MEDS ORDERED: BUMETANIDE1 MG PO (14:42)
[2020-11-02 16:01] VITALS: BP 131/51
== END 2020-11-02 16:30 | DRG 177 ==
LOC: ED 14:15 → EDHOLD 16:37 → 4E 16:37 → EDHOLD 17:07 → 4E 17:51
PROVIDERS: Emergency Medicine; Internal Medicine; Internal Medicine Critical Care Medicine; Registered Nurse; ADMIT Internal Medicine; ATTEND Internal Medicine
PROC: 5A09357 Assistance with Respiratory Ventilation, Less than 24 Consecutive Hours, Continuous Positive Airway Pressure (ICD-10-PCS; 2020-10-21)
PROC: 5A09457 Assistance with Respiratory Ventilation, 24-96 Consecutive Hours, Continuous Positive Airway Pressure (ICD-10-PCS; principal; 2020-10-22)
PROC: 5A09357 Assistance with Respiratory Ventilation, Less than 24 Consecutive Hours, Continuous Positive Airway Pressure (ICD-10-PCS; 2020-10-22)
PROC: BD1BYZZ Fluoroscopy of Mouth/Oropharynx using Other Contrast (ICD-10-PCS; 2020-10-22)
PROC: 5A09357 Assistance with Respiratory Ventilation, Less than 24 Consecutive Hours, Continuous Positive Airway Pressure (ICD-10-PCS; 2020-10-25)
PROC: 5A09457 Assistance with Respiratory Ventilation, 24-96 Consecutive Hours, Continuous Positive Airway Pressure (ICD-10-PCS; 2020-10-26)
PROC: 5A09357 Assistance with Respiratory Ventilation, Less than 24 Consecutive Hours, Continuous Positive Airway Pressure (ICD-10-PCS; 2020-10-27)
PROC: 30233N1 Transfusion of Nonautologous Red Blood Cells into Peripheral Vein, Percutaneous Approach (ICD-10-PCS; 2020-10-27)
PROC: 5A09357 Assistance with Respiratory Ventilation, Less than 24 Consecutive Hours, Continuous Positive Airway Pressure (ICD-10-PCS; 2020-10-28)
PROC: 5A09357 Assistance with Respiratory Ventilation, Less than 24 Consecutive Hours, Continuous Positive Airway Pressure (ICD-10-PCS; 2020-10-30)
PROC: 5A09457 Assistance with Respiratory Ventilation, 24-96 Consecutive Hours, Continuous Positive Airway Pressure (ICD-10-PCS; 2020-10-31)
PROC: 5A09357 Assistance with Respiratory Ventilation, Less than 24 Consecutive Hours, Continuous Positive Airway Pressure (ICD-10-PCS; 2020-11-02)
DX: J69.0 Pneumonitis due to inhalation of food and vomit (principal); I50.33 Acute on chronic diastolic (congestive) heart failure; J96.21 Acute and chronic respiratory failure with hypoxia; J96.22 Acute and chronic respiratory failure with hypercapnia; J44.1 Chronic obstructive pulmonary disease with (acute) exacerbation; J44.0 Chronic obstructive pulmonary disease with (acute) lower respiratory infection; J98.11 Atelectasis; L03.311 Cellulitis of abdominal wall; E87.3 Alkalosis; I48.20 Chronic atrial fibrillation, unspecified; Z68.42 Body mass index [BMI] 45.0-49.9, adult; I48.0 Paroxysmal atrial fibrillation; Z20.822 Contact with and (suspected) exposure to COVID-19; D64.9 Anemia, unspecified; E87.8 Other disorders of electrolyte and fluid balance, not elsewhere classified; J15.6 Pneumonia due to other Gram-negative bacteria; G47.33 Obstructive sleep apnea (adult) (pediatric); E66.01 Morbid (severe) obesity due to excess calories; I27.20 Pulmonary hypertension, unspecified; K63.9 Disease of intestine, unspecified; E11.65 Type 2 diabetes mellitus with hyperglycemia; E87.6 Hypokalemia; Z87.891 Personal history of nicotine dependence; Z79.51 Long term (current) use of inhaled steroids; Z79.4 Long term (current) use of insulin; Z79.899 Other long term (current) drug therapy

== ENCOUNTER → 2021-01-29 | Outpatient (CLI) | payer OTHER ==
[~2021-01-29] MED LIST changes: +BUMETANIDE1 MG PO
[2021-01-29 13:16] LABS: BASO # 0.1 10*3/uL (0.0-0.1); BASO % 0.8 % (0.0-1.0); EOS # 0.2 10*3/uL (0.0-0.4); EOS % 1.9 % (1.0-4.0); HEMATOCRIT 33.1 % (42.0-52.0); LYMPH # 1.7 10*3/uL (1.3-4.4); LYMPH % 17.8 % (27.0-41.0); MEAN CELL VOLUME 83.2 fl (80.0-94.0); MEAN CORPUSCULAR HGB 22.4 pg (27.0-31.0); MEAN CORPUSCULAR HGB CONC 26.9 g/dl (33.0-37.0); MEAN PLATELET VOLUME 10.6 fl (9.6-12.3); MONO # 0.6 10*3/uL (0.1-1.0); MONO % 6.3 % (3.0-9.0); NEUT # 7.1 10*3/uL (2.3-7.9); NEUT % 72.9 % (47.0-73.0); PLATELET COUNT AUTOMATED 283 10*3/uL (130-400); RED BLOOD COUNT 3.98 10*6/uL (4.50-5.90); RED CELL DISTRI WIDTH 17.8 % (0-14.5); WHITE BLOOD COUNT 9.8 10*3/uL (4.8-10.8)
[2021-01-29 13:48] LABS: ALBUMIN 3.3 gm/dl (3.1-4.5); ALKALINE PHOSPHATASE 126 U/L (45-117); BUN 14 mg/dl (7-24); CHLORIDE 96 mmol/L (98-107); CREATININE 1.36 mg/dL (0.70-1.30); IRON 20 ug/dL (65-175); POTASSIUM 3.7 mmol/L (3.5-5.1); SGOT/AST 4 IU/L (3-35); SGPT/ALT 9 U/L (12-78); SODIUM 139 mmol/L (136-145); TOTAL IRON BINDING CAPACITY 406 ug/dl (250-450); TOTAL PROTEIN 7.8 gm/dL (6.4-8.2)
== END | disposition home or self-care (01) ==
LOC: LAB 12:42
PROVIDERS: ATTEND Internal Medicine Gastroenterology
DX: D64.9 Anemia, unspecified (principal); R10.9 Unspecified abdominal pain

== ENCOUNTER → 2021-06-17 | Outpatient (CLI) | payer OTHER | END | disposition home or self-care (01) | LOC: LAB 10:25 | PROVIDERS: ATTEND Nurse Practitioner Family | DX: I48.21 Permanent atrial fibrillation (principal) ==

== ENCOUNTER 2021-06-18 14:51 | Emergency (ER) | payer OTHER ==
[~2021-06-18] VITALS: Ht 177.8 cm; Wt 133.8 kg
[2021-06-18 15:29] VITALS: BP 135/67
== END 2021-06-18 15:55 | disposition left against medical advice (07) ==
LOC: ED 14:51
DX: R06.02 Shortness of breath (principal); Z53.21 Procedure and treatment not carried out due to patient leaving prior to being seen by health care provider

== ENCOUNTER 2021-09-05 15:57 | Emergency (ER) | payer OTHER ==
[~2021-09-05] VITALS: Ht 177.8 cm; Wt 138.3 kg
[2021-09-05 17:28] VITALS: BP 155/65
== END 2021-09-05 19:47 | disposition left against medical advice (07) ==
LOC: ED 15:57
DX: Z53.21 Procedure and treatment not carried out due to patient leaving prior to being seen by health care provider (principal)

== ENCOUNTER 2021-10-30 12:35 | Emergency (ER) | payer OTHER ==
[~2021-10-30] VITALS: Ht 177.8 cm; Wt 134.3 kg
[~2021-10-30 12:35] MED LIST changes: +DOXYCYCLINE HY100 M3 PO; +FEOSOL325 MG PO; +OXYGEN NAS
[2021-10-30 12:46] VITALS: BP 160/71
[2021-10-30 13:36] LABS: BASO # 0.1 10*3/uL (0.0-0.1); BASO % 0.7 % (0.0-1.0); EOS # 0.1 10*3/uL (0.0-0.4); EOS % 1.2 % (1.0-4.0); HEMATOCRIT 43.2 % (42.0-52.0); LYMPH # 1.9 10*3/uL (1.3-4.4); LYMPH % 18.7 % (27.0-41.0); MEAN CELL VOLUME 97.1 fl (80.0-94.0); MEAN CORPUSCULAR HGB 27.9 pg (27.0-31.0); MEAN CORPUSCULAR HGB CONC 28.7 g/dl (33.0-37.0); MEAN PLATELET VOLUME 10.9 fl (9.6-12.3); MONO # 0.5 10*3/uL (0.1-1.0); MONO % 4.7 % (3.0-9.0); NEUT # 7.7 10*3/uL (2.3-7.9); NEUT % 74.3 % (47.0-73.0); PLATELET COUNT AUTOMATED 191 10*3/uL (130-400); RED BLOOD COUNT 4.45 10*6/uL (4.50-5.90); RED CELL DISTRI WIDTH 16.9 % (0-14.5); WHITE BLOOD COUNT 10.3 10*3/uL (4.8-10.8)
[2021-10-30 13:52] LABS: ALBUMIN 3.2 gm/dl (3.1-4.5); ALKALINE PHOSPHATASE 117 U/L (45-117); BUN 9 mg/dl (7-24); CHLORIDE 94 mmol/L (98-107); CREATININE 1.16 mg/dL (0.70-1.30); POTASSIUM 4.4 mmol/L (3.5-5.1); SGOT/AST 11 IU/L (3-35); SGPT/ALT 14 U/L (12-78); SODIUM 137 mmol/L (136-145); TOTAL PROTEIN 7.3 gm/dL (6.4-8.2)
[2021-10-30] MEDS ORDERED: PREDNISONE20 M1 PO (14:44)
[2021-10-30] MEDS ORDERED: VIBRAMYCIN100 MG PO (14:44)
== END 2021-10-30 14:54 | disposition home or self-care (01) ==
LOC: ED 12:35
PROVIDERS: Physician Assistant
DX: J18.9 Pneumonia, unspecified organism (principal); J44.9 Chronic obstructive pulmonary disease, unspecified; I50.9 Heart failure, unspecified; I48.91 Unspecified atrial fibrillation; Z79.899 Other long term (current) drug therapy; Z98.890 Other specified postprocedural states; Z87.891 Personal history of nicotine dependence

== ENCOUNTER 2021-12-04 12:35 | Emergency (ER) | payer OTHER ==
[~2021-12-04] VITALS: Ht 180.3 cm; Wt 129.3 kg
[~2021-12-04 12:35] MED LIST changes: +POTASSIUM CHLO20 ME3 PO; +PREDNISONE20 M1 PO; +ZITHROMAX250 MG PO
[2021-12-04 12:50] VITALS: BP 165/82
[2021-12-04] MEDS ORDERED: HYDROCODONE-AC1 EAC1 PO (14:41)
== END 2021-12-04 15:53 | disposition home or self-care (01) ==
LOC: ED 12:35
DX: S62.643A Nondisplaced fracture of proximal phalanx of left middle finger, initial encounter for closed fracture (principal); S60.222A Contusion of left hand, initial encounter; J44.9 Chronic obstructive pulmonary disease, unspecified; E11.9 Type 2 diabetes mellitus without complications; I10 Essential (primary) hypertension; I48.91 Unspecified atrial fibrillation; Z88.1 Allergy status to other antibiotic agents; Z79.899 Other long term (current) drug therapy; Z98.890 Other specified postprocedural states; Z87.891 Personal history of nicotine dependence; W18.39XA Other fall on same level, initial encounter; Y93.89 Activity, other specified; Y92.89 Other specified places as the place of occurrence of the external cause; Y99.8 Other external cause status

== ENCOUNTER → 2021-12-13 | Outpatient (CLI) | payer OTHER ==
[~2021-12-13] MED LIST changes: +HYDROCODONE-AC1 EAC1 PO
== END | disposition home or self-care (01) ==
LOC: ORTHO 09:02
PROVIDERS: ATTEND Orthopaedic Surgery
DX: S62.613D Displaced fracture of proximal phalanx of left middle finger, subsequent encounter for fracture with routine healing (principal); S62.615D Displaced fracture of proximal phalanx of left ring finger, subsequent encounter for fracture with routine healing; X58.XXXD Exposure to other specified factors, subsequent encounter

== ENCOUNTER 2021-12-14 13:45 | Emergency (ER) | payer OTHER ==
[~2021-12-14] VITALS: Ht 177.8 cm; Wt 131.5 kg
[2021-12-14 13:56] VITALS: BP 161/64
[2021-12-14 14:29] LABS: BASO % 0.5 % (0.0-1.0); EOS # 0.2 10*3/uL (0.0-0.4); EOS % 2.1 % (1.0-4.0); HEMATOCRIT 43.6 % (42.0-52.0); LYMPH # 1.5 10*3/uL (1.3-4.4); LYMPH % 17.9 % (27.0-41.0); MEAN CELL VOLUME 97.8 fl (80.0-94.0); MEAN CORPUSCULAR HGB 28.9 pg (27.0-31.0); MEAN CORPUSCULAR HGB CONC 29.6 g/dl (33.0-37.0); MONO # 0.5 10*3/uL (0.1-1.0); MONO % 5.3 % (3.0-9.0); NEUT # 6.3 10*3/uL (2.3-7.9); NEUT % 73.8 % (47.0-73.0); PLATELET COUNT AUTOMATED 174 10*3/uL (130-400); RED BLOOD COUNT 4.46 10*6/uL (4.50-5.90); RED CELL DISTRI WIDTH 15.7 % (0-14.5); WHITE BLOOD COUNT 8.5 10*3/uL (4.8-10.8)
[2021-12-14 14:39] LABS: INTERNATIONAL NORM RATIO 0.9 (2.0-3.5)
[2021-12-14 14:53] LABS: ALKALINE PHOSPHATASE 139 U/L (45-117); BUN 11 mg/dl (7-24); CHLORIDE 95 mmol/L (98-107); CREATININE 1.29 mg/dL (0.70-1.30); SGOT/AST 9 IU/L (3-35); SGPT/ALT 22 U/L (12-78); SODIUM 138 mmol/L (136-145); TOTAL PROTEIN 7.1 gm/dL (6.4-8.2)
== END 2021-12-14 17:35 | disposition admitted as inpatient to this hospital (09) ==
LOC: ED 13:45 → EDHOLD 17:24 → ED 17:35
PROVIDERS: Emergency Medicine
DX: I50.9 Heart failure, unspecified (principal); J44.9 Chronic obstructive pulmonary disease, unspecified; Z88.1 Allergy status to other antibiotic agents; Z79.899 Other long term (current) drug therapy; F17.200 Nicotine dependence, unspecified, uncomplicated

== ENCOUNTER → 2021-12-21 | Outpatient (CLI) | payer OTHER ==
[~2021-12-21] MED LIST changes: +VIBRA-TAB100 MG PO
== END | disposition home or self-care (01) ==
LOC: ORTHO 00:26
PROVIDERS: ATTEND Orthopaedic Surgery
DX: S62.615D Displaced fracture of proximal phalanx of left ring finger, subsequent encounter for fracture with routine healing (principal); S62.613D Displaced fracture of proximal phalanx of left middle finger, subsequent encounter for fracture with routine healing; X58.XXXD Exposure to other specified factors, subsequent encounter

== ENCOUNTER 2021-12-24 14:04 | Emergency (ER) | payer OTHER ==
[~2021-12-24 14:04] MED LIST changes: -VIBRA-TAB100 MG PO
[2021-12-24 14:11] VITALS: BP 153/52
[2021-12-24 14:57] LABS: BASO # 0.1 10*3/uL (0.0-0.1); BASO % 0.7 % (0.0-1.0); EOS # 0.2 10*3/uL (0.0-0.4); EOS % 2.3 % (1.0-4.0); HEMATOCRIT 44.1 % (42.0-52.0); LYMPH # 2.1 10*3/uL (1.3-4.4); LYMPH % 22.8 % (27.0-41.0); MEAN CELL VOLUME 96.1 fl (80.0-94.0); MEAN CORPUSCULAR HGB 28.5 pg (27.0-31.0); MEAN CORPUSCULAR HGB CONC 29.7 g/dl (33.0-37.0); MEAN PLATELET VOLUME 10.5 fl (9.6-12.3); MONO # 0.5 10*3/uL (0.1-1.0); MONO % 5.4 % (3.0-9.0); NEUT # 6.2 10*3/uL (2.3-7.9); NEUT % 68.1 % (47.0-73.0); PLATELET COUNT AUTOMATED 281 10*3/uL (130-400); RED BLOOD COUNT 4.59 10*6/uL (4.50-5.90); RED CELL DISTRI WIDTH 15.8 % (0-14.5)
[2021-12-24 15:10] LABS: ALKALINE PHOSPHATASE 120 U/L (45-117); BUN 8 mg/dl (7-24); CHLORIDE 98 mmol/L (98-107); CREATININE 1.12 mg/dL (0.70-1.30); POTASSIUM 3.8 mmol/L (3.5-5.1); SGOT/AST 9 IU/L (3-35); SGPT/ALT 15 U/L (12-78); SODIUM 140 mmol/L (136-145); TOTAL PROTEIN 7.2 gm/dL (6.4-8.2)
[2021-12-24] MEDS ORDERED: VIBRA-TAB100 MG PO (15:34)
[2021-12-24] MEDS ORDERED: PREDNISONE10 MG PO (15:34)
== END 2021-12-24 15:44 | disposition home or self-care (01) ==
LOC: ED 14:04
PROVIDERS: Emergency Medicine
DX: J44.1 Chronic obstructive pulmonary disease with (acute) exacerbation (principal); J18.9 Pneumonia, unspecified organism; Z98.890 Other specified postprocedural states; Z79.899 Other long term (current) drug therapy; Z88.1 Allergy status to other antibiotic agents

== ENCOUNTER → 2021-12-29 | Outpatient (CLI) | payer OTHER ==
[~2021-12-29] MED LIST changes: +VIBRA-TAB100 MG PO
== END | disposition home or self-care (01) ==
LOC: ORTHO 01:46
PROVIDERS: ATTEND Orthopaedic Surgery
DX: S62.615D Displaced fracture of proximal phalanx of left ring finger, subsequent encounter for fracture with routine healing (principal); S62.613D Displaced fracture of proximal phalanx of left middle finger, subsequent encounter for fracture with routine healing; X58.XXXD Exposure to other specified factors, subsequent encounter

== ENCOUNTER 2022-01-14 15:28 | Emergency (ER) | payer OTHER ==
[~2022-01-14] VITALS: Ht 177.8 cm; Wt 132.0 kg
[2022-01-14 15:33] VITALS: BP 163/74
[2022-01-14 16:00] LABS: BASO # 0.1 10*3/uL (0.0-0.1); BASO % 0.5 % (0.0-1.0); EOS # 0.2 10*3/uL (0.0-0.4); HEMATOCRIT 45.6 % (42.0-52.0); LYMPH % 21.1 % (27.0-41.0); MEAN CELL VOLUME 96.8 fl (80.0-94.0); MEAN CORPUSCULAR HGB 28.5 pg (27.0-31.0); MEAN CORPUSCULAR HGB CONC 29.4 g/dl (33.0-37.0); MEAN PLATELET VOLUME 10.7 fl (9.6-12.3); MONO # 0.4 10*3/uL (0.1-1.0); MONO % 4.7 % (3.0-9.0); NEUT # 6.6 10*3/uL (2.3-7.9); NEUT % 71.2 % (47.0-73.0); PLATELET COUNT AUTOMATED 177 10*3/uL (130-400); RED BLOOD COUNT 4.71 10*6/uL (4.50-5.90); RED CELL DISTRI WIDTH 15.6 % (0-14.5); WHITE BLOOD COUNT 9.3 10*3/uL (4.8-10.8)
[2022-01-14 17:22] LABS: ALKALINE PHOSPHATASE 133 U/L (45-117); BUN 9 mg/dl (7-24); CHLORIDE 97 mmol/L (98-107); CREATININE 1.14 mg/dL (0.70-1.30); POTASSIUM 4.2 mmol/L (3.5-5.1); SGOT/AST 6 IU/L (3-35); SGPT/ALT 18 U/L (12-78); SODIUM 137 mmol/L (136-145); TOTAL PROTEIN 7.3 gm/dL (6.4-8.2)
[2022-01-14] MEDS ORDERED: VIBRAMYCIN100 MG PO (17:28)
[2022-01-14] MEDS ORDERED: PREDNISONE50 MG PO (17:28)
== END 2022-01-14 17:50 | disposition home or self-care (01) ==
LOC: ED 15:28
PROVIDERS: Nurse Practitioner Family
DX: J44.1 Chronic obstructive pulmonary disease with (acute) exacerbation (principal); Z88.1 Allergy status to other antibiotic agents; Z79.899 Other long term (current) drug therapy; Z98.890 Other specified postprocedural states; F17.200 Nicotine dependence, unspecified, uncomplicated

== ENCOUNTER 2022-01-26 16:47 | Emergency (ER) | payer OTHER ==
[2022-01-26 16:57] VITALS: BP 146/83
[2022-01-26 17:39] LABS: BASO # 0.1 10*3/uL (0.0-0.1); BASO % 0.5 % (0.0-1.0); EOS # 0.2 10*3/uL (0.0-0.4); EOS % 1.6 % (1.0-4.0); HEMATOCRIT 46.1 % (42.0-52.0); LYMPH # 2.2 10*3/uL (1.3-4.4); LYMPH % 21.3 % (27.0-41.0); MEAN CELL VOLUME 96.6 fl (80.0-94.0); MEAN CORPUSCULAR HGB 28.3 pg (27.0-31.0); MEAN CORPUSCULAR HGB CONC 29.3 g/dl (33.0-37.0); MEAN PLATELET VOLUME 10.7 fl (9.6-12.3); MONO # 0.7 10*3/uL (0.1-1.0); MONO % 6.9 % (3.0-9.0); NEUT # 7.1 10*3/uL (2.3-7.9); PLATELET COUNT AUTOMATED 249 10*3/uL (130-400); RED BLOOD COUNT 4.77 10*6/uL (4.50-5.90); RED CELL DISTRI WIDTH 15.3 % (0-14.5); WHITE BLOOD COUNT 10.3 10*3/uL (4.8-10.8)
[2022-01-26 18:10] LABS: ALKALINE PHOSPHATASE 114 U/L (45-117); BUN 10 mg/dl (7-24); CHLORIDE 98 mmol/L (98-107); CREATININE 1.04 mg/dL (0.70-1.30); POTASSIUM 3.9 mmol/L (3.5-5.1); SGOT/AST 7 IU/L (3-35); SGPT/ALT 18 U/L (12-78); SODIUM 137 mmol/L (136-145); TOTAL PROTEIN 7.1 gm/dL (6.4-8.2)
[2022-01-26] MEDS ORDERED: LEVOFLOXACIN750 M2 PO (18:39)
[2022-01-26] MEDS ORDERED: PREDNISONE10 MG PO (18:39)
== END 2022-01-26 18:54 | disposition home or self-care (01) ==
LOC: ED 16:47
PROVIDERS: Internal Medicine
DX: J44.1 Chronic obstructive pulmonary disease with (acute) exacerbation (principal); Z98.890 Other specified postprocedural states; Z79.899 Other long term (current) drug therapy; Z88.1 Allergy status to other antibiotic agents

== ENCOUNTER → 2022-01-31 | Outpatient (CLI) | payer OTHER ==
[~2022-01-31] MED LIST changes: +LEVOFLOXACIN750 M2 PO
== END | disposition home or self-care (01) ==
LOC: ORTHO 01:29
PROVIDERS: ATTEND Orthopaedic Surgery
DX: S62.615D Displaced fracture of proximal phalanx of left ring finger, subsequent encounter for fracture with routine healing (principal); S62.613D Displaced fracture of proximal phalanx of left middle finger, subsequent encounter for fracture with routine healing; X58.XXXD Exposure to other specified factors, subsequent encounter

== ENCOUNTER 2022-02-18 13:53 | Inpatient (IN) | payer OTHER ==
[~2022-02-18] VITALS: Ht 179 cm; Wt 88.9 kg
[2022-02-18 14:04] VITALS: BP 164/75
[2022-02-18 14:33] LABS: BASO # 0.1 10*3/uL (0.0-0.1); BASO % 0.5 % (0.0-1.0); EOS # 0.2 10*3/uL (0.0-0.4); EOS % 1.9 % (1.0-4.0); HEMATOCRIT 42.6 % (42.0-52.0); LYMPH # 1.9 10*3/uL (1.3-4.4); LYMPH % 19.3 % (27.0-41.0); MEAN CELL VOLUME 99.1 fl (80.0-94.0); MEAN CORPUSCULAR HGB 29.5 pg (27.0-31.0); MEAN CORPUSCULAR HGB CONC 29.8 g/dl (33.0-37.0); MEAN PLATELET VOLUME 10.7 fl (9.6-12.3); MONO # 0.4 10*3/uL (0.1-1.0); MONO % 4.4 % (3.0-9.0); NEUT % 73.5 % (47.0-73.0); PLATELET COUNT AUTOMATED 172 10*3/uL (130-400); RED CELL DISTRI WIDTH 15.9 % (0-14.5); WHITE BLOOD COUNT 9.6 10*3/uL (4.8-10.8)
[2022-02-18 14:44] LABS: ACT PARTIAL THROMBO TIME 28.2 SECONDS (20.0-32.1)
[2022-02-18 14:48] LABS: ALKALINE PHOSPHATASE 131 U/L (45-117); BUN 11 mg/dl (7-24); CHLORIDE 95 mmol/L (98-107); CREATININE 1.25 mg/dL (0.70-1.30); POTASSIUM 4.1 mmol/L (3.5-5.1); SGOT/AST 7 IU/L (3-35); SGPT/ALT 14 U/L (12-78); SODIUM 139 mmol/L (136-145); TOTAL PROTEIN 6.7 gm/dL (6.4-8.2)
[2022-02-18] MEDS ORDERED: CARVEDILOL25 MG PO (17:31)
[2022-02-18 17:32] VITALS: BP 148/85
[2022-02-18 20:00] VITALS: BP 129/67
[2022-02-19] VITALS: BP 106/50
[2022-02-19 05:10] LABS: ALKALINE PHOSPHATASE 108 U/L (45-117); BUN 16 mg/dl (7-24); CHLORIDE 94 mmol/L (98-107); CHOLESTEROL 129 mg/dL (<200); CREATININE 1.19 mg/dL (0.70-1.30); LDL CHOLESTEROL 71 mg/dL (9-159); POTASSIUM 4.3 mmol/L (3.5-5.1); SGOT/AST 9 IU/L (3-35); SGPT/ALT 14 U/L (12-78); SODIUM 136 mmol/L (136-145); TOTAL PROTEIN 6.2 gm/dL (6.4-8.2); TRIGLYCERIDES 135 mg/dl (<150)
[2022-02-19 05:16] LABS: FREE T4 1.16 ng/dl (0.76-1.46); THYROID STIM HORMONE (HS) 0.339 uIU/ml (0.358-4.75)
[2022-02-19 06:48] LABS: HEMATOCRIT 41.1 % (42.0-52.0); MEAN CELL VOLUME 96.7 fl (80.0-94.0); MEAN CORPUSCULAR HGB 29.2 pg (27.0-31.0); MEAN CORPUSCULAR HGB CONC 30.2 g/dl (33.0-37.0); MEAN PLATELET VOLUME 11.4 fl (9.6-12.3); PLATELET COUNT AUTOMATED 190 10*3/uL (130-400); RED BLOOD COUNT 4.25 10*6/uL (4.50-5.90); RED CELL DISTRI WIDTH 15.7 % (0-14.5)
[2022-02-19 06:50] LABS: MANUAL DIFF REFLEX YES
[2022-02-19 06:57] LABS: TOTAL CELLS COUNTED 100 #CELLS
[2022-02-19 06:58] LABS: OVALOCYTES FEW; PLATELET SUFFICIENCY NORMAL (NORMAL); POLYCHROMASIA SLIGHT
[2022-02-19 08:00] VITALS: BP 155/76
[2022-02-19 12:00] VITALS: BP 145/72
[2022-02-19 16:00] VITALS: BP 142/66
[2022-02-19 20:00] VITALS: BP 133/56
[2022-02-20] VITALS: BP 131/64
[2022-02-20 05:52] LABS: CHLORIDE 94 mmol/L (98-107); CREATININE 1.06 mg/dL (0.70-1.30); SODIUM 137 mmol/L (136-145)
[2022-02-20 06:03] LABS: BUN 26 mg/dl (7-24)
[2022-02-20 06:40] LABS: BASO % 0.1 % (0.0-1.0); HEMATOCRIT 40.1 % (42.0-52.0); LYMPH # 0.7 10*3/uL (1.3-4.4); LYMPH % 7.2 % (27.0-41.0); MEAN CELL VOLUME 94.4 fl (80.0-94.0); MEAN CORPUSCULAR HGB 28.2 pg (27.0-31.0); MEAN CORPUSCULAR HGB CONC 29.9 g/dl (33.0-37.0); MEAN PLATELET VOLUME 11.7 fl (9.6-12.3); MONO # 0.3 10*3/uL (0.1-1.0); MONO % 2.7 % (3.0-9.0); NEUT # 8.3 10*3/uL (2.3-7.9); NEUT % 89.6 % (47.0-73.0); PLATELET COUNT AUTOMATED 197 10*3/uL (130-400); RED BLOOD COUNT 4.25 10*6/uL (4.50-5.90); RED CELL DISTRI WIDTH 15.4 % (0-14.5); WHITE BLOOD COUNT 9.3 10*3/uL (4.8-10.8)
[2022-02-20 08:00] VITALS: BP 130/86
[2022-02-20] MEDS ORDERED: LEVOFLOXACIN500 MG PO (11:33)
[2022-02-20] MEDS ORDERED: PREDNISONE10 MG PO (11:33)
== END 2022-02-20 12:36 | disposition home or self-care (01) | DRG 871 ==
LOC: ED 13:53 → EDHOLD 15:36 → 4E 16:54
PROVIDERS: Emergency Medicine; Internal Medicine; ADMIT Student in an Organized Health Care Education/Training Program; ATTEND Student in an Organized Health Care Education/Training Program
PROC: 5A09357 Assistance with Respiratory Ventilation, Less than 24 Consecutive Hours, Continuous Positive Airway Pressure (ICD-10-PCS; principal; 2022-02-18)
DX: A41.9 Sepsis, unspecified organism (principal); J18.9 Pneumonia, unspecified organism; J44.1 Chronic obstructive pulmonary disease with (acute) exacerbation; E87.2 Acidosis; E44.0 Moderate protein-calorie malnutrition; I50.32 Chronic diastolic (congestive) heart failure; E87.3 Alkalosis; J44.0 Chronic obstructive pulmonary disease with (acute) lower respiratory infection; G47.33 Obstructive sleep apnea (adult) (pediatric); D53.9 Nutritional anemia, unspecified; I48.0 Paroxysmal atrial fibrillation; M10.9 Gout, unspecified; E11.65 Type 2 diabetes mellitus with hyperglycemia; Z79.4 Long term (current) use of insulin; Z68.27 Body mass index [BMI] 27.0-27.9, adult

== ENCOUNTER 2022-03-17 15:28 | Emergency (ER) | payer OTHER ==
[~2022-03-17] VITALS: Ht 177.8 cm; Wt 129.3 kg
[~2022-03-17 15:28] MED LIST changes: +LEVOFLOXACIN500 MG PO
[2022-03-17 16:20] LABS: BASO % 0.4 % (0.0-1.0); EOS # 0.1 10*3/uL (0.0-0.4); EOS % 1.2 % (1.0-4.0); LYMPH % 20.9 % (27.0-41.0); MEAN CELL VOLUME 96.1 fl (80.0-94.0); MEAN CORPUSCULAR HGB 29.1 pg (27.0-31.0); MEAN CORPUSCULAR HGB CONC 30.2 g/dl (33.0-37.0); MEAN PLATELET VOLUME 10.3 fl (9.6-12.3); MONO # 0.4 10*3/uL (0.1-1.0); MONO % 4.6 % (3.0-9.0); NEUT # 6.8 10*3/uL (2.3-7.9); NEUT % 72.4 % (47.0-73.0); PLATELET COUNT AUTOMATED 170 10*3/uL (130-400); RED BLOOD COUNT 4.37 10*6/uL (4.50-5.90); WHITE BLOOD COUNT 9.3 10*3/uL (4.8-10.8)
[2022-03-17 16:29] LABS: BILIRUBIN Negative (Negative); BLOOD Negative (Negative); CLARITY Clear (Clear); COLOR Yellow (Yellow); GLUCOSE 3+ (Negative); KETONE Negative (Negative); LEUKO ESTERASE Negative (Negative); NITRITE Negative (Negative); PH 5.5 (4.5-8.0); SPECIFIC GRAVITY 1.025 (1.001-1.030); UROBILINOGEN 0.2 E.U./dl (0.0-1.0)
[2022-03-17 16:38] LABS: ALKALINE PHOSPHATASE 117 U/L (45-117); BUN 10 mg/dl (7-24); CHLORIDE 92 mmol/L (98-107); CREATININE 1.05 mg/dL (0.70-1.30); POTASSIUM 4.1 mmol/L (3.5-5.1); SGOT/AST 11 IU/L (3-35); SGPT/ALT 13 U/L (12-78); SODIUM 138 mmol/L (136-145); TOTAL PROTEIN 6.7 gm/dL (6.4-8.2)
[2022-03-17 17:05] LABS: WBC 0-2 wbc/hpf (0-5)
== END 2022-03-17 17:47 | disposition left against medical advice (07) ==
LOC: ED 15:28
PROVIDERS: Family Medicine
DX: J44.1 Chronic obstructive pulmonary disease with (acute) exacerbation (principal); Z88.8 Allergy status to other drugs, medicaments and biological substances; Z98.890 Other specified postprocedural states; Z87.891 Personal history of nicotine dependence

== ENCOUNTER 2022-03-23 14:54 | Inpatient (IN) | payer OTHER ==
[~2022-03-23] VITALS: Ht 177.8 cm; Wt 132.0 kg
[2022-03-23 14:59] VITALS: BP 157/85
[2022-03-23 15:37] LABS: BASO # 0.1 10*3/uL (0.0-0.1); BASO % 0.6 % (0.0-1.0); EOS # 0.2 10*3/uL (0.0-0.4); HEMATOCRIT 43.1 % (42.0-52.0); LYMPH # 1.7 10*3/uL (1.3-4.4); LYMPH % 20.1 % (27.0-41.0); MEAN CELL VOLUME 96.9 fl (80.0-94.0); MEAN CORPUSCULAR HGB 28.5 pg (27.0-31.0); MEAN CORPUSCULAR HGB CONC 29.5 g/dl (33.0-37.0); MEAN PLATELET VOLUME 10.7 fl (9.6-12.3); MONO # 0.4 10*3/uL (0.1-1.0); MONO % 5.2 % (3.0-9.0); NEUT % 71.4 % (47.0-73.0); PLATELET COUNT AUTOMATED 266 10*3/uL (130-400); RED BLOOD COUNT 4.45 10*6/uL (4.50-5.90); RED CELL DISTRI WIDTH 16.1 % (0-14.5); WHITE BLOOD COUNT 8.5 10*3/uL (4.8-10.8)
[2022-03-23 15:49] LABS: ACT PARTIAL THROMBO TIME 27.4 SECONDS (20.0-32.1); INTERNATIONAL NORM RATIO 0.9 (2.0-3.5)
[2022-03-23 15:55] LABS: ALKALINE PHOSPHATASE 124 U/L (45-117); BUN 7 mg/dl (7-24); CHLORIDE 96 mmol/L (98-107); CREATININE 1.03 mg/dL (0.70-1.30); LIPASE 317 U/L (73-393); POTASSIUM 3.8 mmol/L (3.5-5.1); SGOT/AST 10 IU/L (3-35); SGPT/ALT 9 U/L (12-78); SODIUM 135 mmol/L (136-145)
[2022-03-23 19:00] VITALS: BP 148/81
[2022-03-23 20:53] VITALS: BP 143/70
[2022-03-23 22:37] VITALS: BP 128/61
[2022-03-24 06:16] LABS: BASO % 0.4 % (0.0-1.0); LYMPH # 0.8 10*3/uL (1.3-4.4); LYMPH % 10.2 % (27.0-41.0); MEAN CELL VOLUME 95.2 fl (80.0-94.0); MEAN CORPUSCULAR HGB CONC 30.5 g/dl (33.0-37.0); MEAN PLATELET VOLUME 10.8 fl (9.6-12.3); MONO # 0.1 10*3/uL (0.1-1.0); MONO % 0.9 % (3.0-9.0); NEUT # 6.9 10*3/uL (2.3-7.9); NEUT % 87.6 % (47.0-73.0); PLATELET COUNT AUTOMATED 267 10*3/uL (130-400); RED CELL DISTRI WIDTH 15.8 % (0-14.5); WHITE BLOOD COUNT 7.9 10*3/uL (4.8-10.8)
[2022-03-24 06:45] LABS: BUN 10 mg/dl (7-24); CHLORIDE 95 mmol/L (98-107); CHOLESTEROL 137 mg/dL (<200); CREATININE 1.01 mg/dL (0.70-1.30); POTASSIUM 4.6 mmol/L (3.5-5.1); SGOT/AST 8 IU/L (3-35); SGPT/ALT 9 U/L (12-78); SODIUM 137 mmol/L (136-145); TOTAL PROTEIN 6.5 gm/dL (6.4-8.2); TRIGLYCERIDES 140 mg/dl (<150)
[2022-03-24 06:46] LABS: ALKALINE PHOSPHATASE 109 U/L (45-117); LDL CHOLESTEROL 77 mg/dL (9-159)
[2022-03-24 08:00] VITALS: BP 138/73
[2022-03-24 12:00] VITALS: BP 143/71
[2022-03-24 16:00] VITALS: BP 103/49
[2022-03-24 17:10] LABS: ABG BASE EXCESS 8.4 mmol/L (-2.0-2.0); ARTERIAL BLOOD GAS PH 7.383 (7.35-7.45); ARTERIAL BLOOD GAS PO2 72.6 (80-90)
[2022-03-24 20:00] VITALS: BP 139/74
[2022-03-25] VITALS: BP 108/45
[2022-03-25 05:58] LABS: BUN 17 mg/dl (7-24); CHLORIDE 94 mmol/L (98-107); CREATININE 1.15 mg/dL (0.70-1.30); POTASSIUM 3.9 mmol/L (3.5-5.1); SODIUM 134 mmol/L (136-145)
[2022-03-25 06:26] LABS: BASO % 0.2 % (0.0-1.0); HEMATOCRIT 38.2 % (42.0-52.0); LYMPH # 0.8 10*3/uL (1.3-4.4); LYMPH % 8.5 % (27.0-41.0); MEAN CELL VOLUME 97.2 fl (80.0-94.0); MEAN CORPUSCULAR HGB 29.3 pg (27.0-31.0); MEAN CORPUSCULAR HGB CONC 30.1 g/dl (33.0-37.0); MEAN PLATELET VOLUME 11.1 fl (9.6-12.3); MONO # 0.3 10*3/uL (0.1-1.0); MONO % 3.3 % (3.0-9.0); NEUT # 8.2 10*3/uL (2.3-7.9); NEUT % 86.8 % (47.0-73.0); PLATELET COUNT AUTOMATED 267 10*3/uL (130-400); RED BLOOD COUNT 3.93 10*6/uL (4.50-5.90); RED CELL DISTRI WIDTH 15.6 % (0-14.5); WHITE BLOOD COUNT 9.4 10*3/uL (4.8-10.8)
[2022-03-25 08:00] VITALS: BP 142/71
[2022-03-25 12:00] VITALS: BP 130/75
[2022-03-25] MEDS ORDERED: LEVOFLOXACIN500 MG PO (12:16)
[2022-03-25] MEDS ORDERED: PREDNISONE10 MG PO (12:17)
== END 2022-03-25 13:24 | disposition home or self-care (01) | DRG 190 ==
LOC: ED 14:54 → EDHOLD 18:27 → 4E 18:27
PROVIDERS: Emergency Medicine; Internal Medicine; Internal Medicine Critical Care Medicine; ADMIT Internal Medicine; ATTEND Internal Medicine
PROC: 5A09357 Assistance with Respiratory Ventilation, Less than 24 Consecutive Hours, Continuous Positive Airway Pressure (ICD-10-PCS; principal; 2022-03-23)
PROC: 5A09357 Assistance with Respiratory Ventilation, Less than 24 Consecutive Hours, Continuous Positive Airway Pressure (ICD-10-PCS; 2022-03-24)
PROC: 5A09357 Assistance with Respiratory Ventilation, Less than 24 Consecutive Hours, Continuous Positive Airway Pressure (ICD-10-PCS; 2022-03-25)
DX: J44.1 Chronic obstructive pulmonary disease with (acute) exacerbation (principal); J96.21 Acute and chronic respiratory failure with hypoxia; E43 Unspecified severe protein-calorie malnutrition; J96.22 Acute and chronic respiratory failure with hypercapnia; I48.11 Longstanding persistent atrial fibrillation; I50.32 Chronic diastolic (congestive) heart failure; E87.3 Alkalosis; Z68.41 Body mass index [BMI] 40.0-44.9, adult; M10.9 Gout, unspecified; G47.33 Obstructive sleep apnea (adult) (pediatric); E11.65 Type 2 diabetes mellitus with hyperglycemia; E66.01 Morbid (severe) obesity due to excess calories; J30.9 Allergic rhinitis, unspecified; Q15.8 Other specified congenital malformations of eye; Z99.81 Dependence on supplemental oxygen; Z88.1 Allergy status to other antibiotic agents; Z81.1 Family history of alcohol abuse and dependence; Z84.89 Family history of other specified conditions

== ENCOUNTER → 2022-03-30 | Outpatient (CLI) | payer OTHER | END | disposition home or self-care (01) | LOC: LAB 14:27 | PROVIDERS: ATTEND Nurse Practitioner Family | DX: I50.32 Chronic diastolic (congestive) heart failure (principal) ==

== ENCOUNTER 2022-04-21 12:48 | Emergency (ER) | payer OTHER ==
[~2022-04-21] VITALS: Ht 177.8 cm; Wt 126.6 kg
[2022-04-21 13:00] VITALS: BP 141/61
[2022-04-21 14:03] LABS: BASO % 0.5 % (0.0-1.0); EOS # 0.3 10*3/uL (0.0-0.4); EOS % 3.4 % (1.0-4.0); HEMATOCRIT 43.4 % (42.0-52.0); LYMPH # 2.1 10*3/uL (1.3-4.4); LYMPH % 23.8 % (27.0-41.0); MEAN CORPUSCULAR HGB 28.8 pg (27.0-31.0); MEAN PLATELET VOLUME 10.1 fl (9.6-12.3); MONO # 0.4 10*3/uL (0.1-1.0); MONO % 4.5 % (3.0-9.0); NEUT # 5.9 10*3/uL (2.3-7.9); NEUT % 67.1 % (47.0-73.0); PLATELET COUNT AUTOMATED 246 10*3/uL (130-400); RED BLOOD COUNT 4.52 10*6/uL (4.50-5.90); RED CELL DISTRI WIDTH 15.9 % (0-14.5); WHITE BLOOD COUNT 8.7 10*3/uL (4.8-10.8)
[2022-04-21 14:18] LABS: ALKALINE PHOSPHATASE 111 U/L (45-117); BUN 7 mg/dl (7-24); CHLORIDE 99 mmol/L (98-107); CREATININE 1.16 mg/dL (0.70-1.30); SGOT/AST 10 IU/L (3-35); SGPT/ALT 9 U/L (12-78); SODIUM 140 mmol/L (136-145); TOTAL PROTEIN 6.7 gm/dL (6.4-8.2)
[2022-04-21] MEDS ORDERED: LEVOFLOXACIN500 MG PO (17:07)
[2022-04-21] MEDS ORDERED: MEDROL DOSEPAK4 MG PO (17:07)
== END 2022-04-21 17:35 | disposition home or self-care (01) ==
LOC: ED 12:48
PROVIDERS: Emergency Medicine
DX: J44.1 Chronic obstructive pulmonary disease with (acute) exacerbation (principal); Z20.822 Contact with and (suspected) exposure to COVID-19; I50.9 Heart failure, unspecified; I11.0 Hypertensive heart disease with heart failure; J45.909 Unspecified asthma, uncomplicated; E66.9 Obesity, unspecified; I48.91 Unspecified atrial fibrillation; E11.9 Type 2 diabetes mellitus without complications; F17.210 Nicotine dependence, cigarettes, uncomplicated; Z88.1 Allergy status to other antibiotic agents; Z79.899 Other long term (current) drug therapy; Z98.890 Other specified postprocedural states

== ENCOUNTER 2022-05-02 09:35 | Emergency (ER) | payer OTHER | END 2022-05-02 11:30 | disposition left against medical advice (07) | LOC: ED 09:35 | DX: Z53.21 Procedure and treatment not carried out due to patient leaving prior to being seen by health care provider (principal) ==

== ENCOUNTER → 2022-05-10 | Outpatient (CLI) | payer OTHER ==
[~2022-05-10] MED LIST changes: +GLIPIZIDE10 M2 PO
== END ==
LOC: LAB 10:53
PROVIDERS: ATTEND Nurse Practitioner Family
DX: I50.32 Chronic diastolic (congestive) heart failure (principal)

== ENCOUNTER 2022-05-31 11:57 | Emergency (ER) | payer OTHER ==
[~2022-05-31] VITALS: Ht 177.8 cm; Wt 122.5 kg
[2022-05-31 12:16] VITALS: BP 135/66
[2022-05-31 13:00] LABS: BASO # 0.1 10*3/uL (0.0-0.1); BASO % 0.6 % (0.0-1.0); EOS # 0.2 10*3/uL (0.0-0.4); EOS % 1.8 % (1.0-4.0); HEMATOCRIT 43.9 % (42.0-52.0); LYMPH # 2.2 10*3/uL (1.3-4.4); LYMPH % 21.5 % (27.0-41.0); MEAN CELL VOLUME 95.4 fl (80.0-94.0); MEAN CORPUSCULAR HGB 29.6 pg (27.0-31.0); MEAN PLATELET VOLUME 10.4 fl (9.6-12.3); MONO # 0.5 10*3/uL (0.1-1.0); NEUT # 7.1 10*3/uL (2.3-7.9); NEUT % 70.6 % (47.0-73.0); PLATELET COUNT AUTOMATED 256 10*3/uL (130-400); RED CELL DISTRI WIDTH 15.6 % (0-14.5); WHITE BLOOD COUNT 10.1 10*3/uL (4.8-10.8)
[2022-05-31 13:12] LABS: ACT PARTIAL THROMBO TIME 28.5 SECONDS (20.0-32.1)
[2022-05-31 13:15] LABS: ALKALINE PHOSPHATASE 136 U/L (45-117); BUN 8 mg/dl (7-24); CHLORIDE 99 mmol/L (98-107); POTASSIUM 3.6 mmol/L (3.5-5.1); SGOT/AST 7 IU/L (3-35); SGPT/ALT 14 U/L (12-78); SODIUM 141 mmol/L (136-145); TOTAL PROTEIN 7.2 gm/dL (6.4-8.2)
[2022-05-31] MEDS ORDERED: MUCINEX DM 30/61 TAB PO (15:19)
== END 2022-05-31 15:24 | disposition home or self-care (01) ==
LOC: ED 11:57
PROVIDERS: Emergency Medicine
DX: J44.9 Chronic obstructive pulmonary disease, unspecified (principal); E11.9 Type 2 diabetes mellitus without complications; M10.9 Gout, unspecified; Z88.1 Allergy status to other antibiotic agents; Z79.899 Other long term (current) drug therapy; Z98.890 Other specified postprocedural states; Z87.891 Personal history of nicotine dependence

== ENCOUNTER → 2022-06-01 | Outpatient (CLI) | payer OTHER ==
[~2022-06-01] MED LIST changes: +MUCINEX DM 30/61 TAB PO
== END | disposition home or self-care (01) ==
LOC: LAB 13:55
PROVIDERS: ATTEND Nurse Practitioner Family
DX: I50.32 Chronic diastolic (congestive) heart failure (principal)

== ENCOUNTER 2022-06-18 10:25 | Emergency (ER) | payer OTHER ==
[~2022-06-18] VITALS: Ht 180.3 cm; Wt 126.1 kg
[2022-06-18 10:25] VITALS: BP 128/71
[2022-06-18] MEDS ORDERED: PREDNISONE50 MG PO (13:28)
== END 2022-06-18 13:55 | disposition home or self-care (01) ==
LOC: ED 10:25
DX: J44.9 Chronic obstructive pulmonary disease, unspecified (principal); Z98.890 Other specified postprocedural states; Z79.899 Other long term (current) drug therapy; Z79.2 Long term (current) use of antibiotics; Z88.1 Allergy status to other antibiotic agents

== ENCOUNTER 2022-07-04 12:00 | Emergency (ER) | payer OTHER ==
[~2022-07-04] VITALS: Ht 177.8 cm; Wt 122.5 kg
[2022-07-04 12:09] VITALS: BP 145/64
== END 2022-07-04 12:49 | disposition left against medical advice (07) ==
LOC: ED 12:00
DX: R06.02 Shortness of breath (principal); Z53.21 Procedure and treatment not carried out due to patient leaving prior to being seen by health care provider

== ENCOUNTER → 2022-08-08 | Outpatient (CLI) | payer OTHER ==
[~2022-08-08] MED LIST changes: +ALDACTONE25 MG PO; +DIGOXIN250 MCG PO; +MUCINEX ER600 MG PO; +PHARMASSURE V500 MCG PO
== END | disposition home or self-care (01) ==
LOC: LAB 12:43
PROVIDERS: ATTEND Nurse Practitioner Family
DX: I50.32 Chronic diastolic (congestive) heart failure (principal)

== ENCOUNTER → 2022-08-19 | Outpatient (CLI) | payer OTHER | END | disposition home or self-care (01) | LOC: LAB 12:10 | PROVIDERS: ATTEND Internal Medicine Cardiovascular Disease | DX: I50.32 Chronic diastolic (congestive) heart failure (principal); Z51.81 Encounter for therapeutic drug level monitoring ==

== ENCOUNTER 2022-08-21 10:26 | Emergency (ER) | payer OTHER ==
[~2022-08-21] VITALS: Ht 177.8 cm; Wt 125.2 kg
[2022-08-21 10:34] VITALS: BP 168/69
[2022-08-21] MEDS ORDERED: PREDNISONE10 MG PO (13:13)
[2022-08-21] MEDS ORDERED: LEVOFLOXACIN500 MG PO (13:13)
== END 2022-08-21 13:32 | disposition home or self-care (01) ==
LOC: ED 10:26
DX: J44.1 Chronic obstructive pulmonary disease with (acute) exacerbation (principal); Z88.1 Allergy status to other antibiotic agents; Z79.899 Other long term (current) drug therapy; Z98.890 Other specified postprocedural states; F17.210 Nicotine dependence, cigarettes, uncomplicated

== ENCOUNTER → 2022-09-28 | Outpatient (CLI) | payer OTHER | END | disposition home or self-care (01) | LOC: LAB 10:57 | PROVIDERS: ATTEND Internal Medicine Cardiovascular Disease | DX: Z51.81 Encounter for therapeutic drug level monitoring (principal); I50.32 Chronic diastolic (congestive) heart failure ==

== ENCOUNTER → 2022-10-28 | Outpatient (CLI) | payer OTHER | END | disposition home or self-care (01) | LOC: LAB 14:01 | PROVIDERS: ATTEND Internal Medicine Cardiovascular Disease | DX: Z51.81 Encounter for therapeutic drug level monitoring (principal); Z79.899 Other long term (current) drug therapy ==

== ENCOUNTER → 2022-11-15 | Outpatient (CLI) | payer OTHER ==
[2022-11-15 13:00] LABS: BASO # 0.1 10*3/uL (0.0-0.1); BASO % 0.3 % (0.0-1.0); EOS # 0.1 10*3/uL (0.0-0.4); EOS % 0.3 % (1.0-4.0); HEMATOCRIT 40.8 % (42.0-52.0); LYMPH # 2.3 10*3/uL (1.3-4.4); MEAN CELL VOLUME 95.3 fl (80.0-94.0); MEAN CORPUSCULAR HGB 28.7 pg (27.0-31.0); MEAN CORPUSCULAR HGB CONC 30.1 g/dl (33.0-37.0); MEAN PLATELET VOLUME 10.8 fl (9.6-12.3); MONO # 0.8 10*3/uL (0.1-1.0); MONO % 4.2 % (3.0-9.0); NEUT # 15.7 10*3/uL (2.3-7.9); PLATELET COUNT AUTOMATED 266 10*3/uL (130-400); RED BLOOD COUNT 4.28 10*6/uL (4.50-5.90); RED CELL DISTRI WIDTH 16.1 % (0-14.5); WHITE BLOOD COUNT 19.1 10*3/uL (4.8-10.8)
[2022-11-15 13:22] LABS: BUN 17 mg/dl (9-23); CHLORIDE 89 mmol/L (98-107); POTASSIUM 4.1 mmol/L (3.4-5.1)
== END | disposition home or self-care (01) ==
LOC: LAB 12:35
PROVIDERS: ATTEND Registered Nurse
DX: N17.0 Acute kidney failure with tubular necrosis (principal); D53.9 Nutritional anemia, unspecified

== ENCOUNTER → 2022-11-24 | Outpatient (CLI) | payer OTHER | END | disposition home or self-care (01) | LOC: LAB 13:01 | PROVIDERS: ATTEND Internal Medicine Cardiovascular Disease | DX: Z51.81 Encounter for therapeutic drug level monitoring (principal); Z79.899 Other long term (current) drug therapy ==

== ENCOUNTER 2022-11-25 10:19 | Inpatient (IN) | payer OTHER ==
[~2022-11-25] VITALS: Ht 177.8 cm; Wt 125.0 kg
[2022-11-25 10:24] VITALS: BP 160/91
[2022-11-25 11:04] LABS: BASO # 0.1 10*3/uL (0.0-0.1); BASO % 0.5 % (0.0-1.0); EOS # 0.2 10*3/uL (0.0-0.4); HEMATOCRIT 38.4 % (42.0-52.0); LYMPH # 1.9 10*3/uL (1.3-4.4); LYMPH % 17.2 % (27.0-41.0); MEAN CORPUSCULAR HGB 28.8 pg (27.0-31.0); MEAN CORPUSCULAR HGB CONC 29.9 g/dl (33.0-37.0); MEAN PLATELET VOLUME 10.3 fl (9.6-12.3); MONO # 0.6 10*3/uL (0.1-1.0); MONO % 5.5 % (3.0-9.0); NEUT # 8.1 10*3/uL (2.3-7.9); NEUT % 74.4 % (47.0-73.0); PLATELET COUNT AUTOMATED 224 10*3/uL (130-400); RED CELL DISTRI WIDTH 17.6 % (0-14.5); WHITE BLOOD COUNT 10.9 10*3/uL (4.8-10.8)
[2022-11-25 11:17] LABS: ACT PARTIAL THROMBO TIME 32.8 SECONDS (20.0-32.1)
[2022-11-25 11:24] LABS: ALKALINE PHOSPHATASE 119 U/L (46-116); BUN 10 mg/dl (9-23); CHLORIDE 95 mmol/L (98-107); LIPASE 61 U/L (12-53); POTASSIUM 3.6 mmol/L (3.4-5.1); TOTAL PROTEIN 6.4 gm/dL (6.0-8.0)
[2022-11-25 12:01] LABS: SGPT/ALT < 7 U/L (10-49)
[2022-11-25 14:13] VITALS: BP 137/47
[2022-11-25 15:08] VITALS: BP 139/63
[2022-11-25 20:00] VITALS: BP 132/66
[2022-11-26] VITALS: BP 125/69
[2022-11-26 07:36] LABS: BASO % 0.1 % (0.0-1.0); HEMATOCRIT 36.5 % (42.0-52.0); LYMPH # 0.8 10*3/uL (1.3-4.4); LYMPH % 8.4 % (27.0-41.0); MEAN CELL VOLUME 96.6 fl (80.0-94.0); MEAN CORPUSCULAR HGB 28.8 pg (27.0-31.0); MEAN CORPUSCULAR HGB CONC 29.9 g/dl (33.0-37.0); MEAN PLATELET VOLUME 10.5 fl (9.6-12.3); MONO # 0.3 10*3/uL (0.1-1.0); MONO % 2.7 % (3.0-9.0); NEUT # 8.4 10*3/uL (2.3-7.9); NEUT % 88.3 % (47.0-73.0); PLATELET COUNT AUTOMATED 229 10*3/uL (130-400); RED BLOOD COUNT 3.78 10*6/uL (4.50-5.90); RED CELL DISTRI WIDTH 17.1 % (0-14.5); WHITE BLOOD COUNT 9.5 10*3/uL (4.8-10.8)
[2022-11-26 07:51] LABS: ACT PARTIAL THROMBO TIME 32.7 SECONDS (20.0-32.1); INTERNATIONAL NORM RATIO 1.1 (2.0-3.5)
[2022-11-26 08:00] VITALS: BP 96/50
[2022-11-26 08:52] LABS: ALKALINE PHOSPHATASE 109 U/L (46-116); CHLORIDE 93 mmol/L (98-107); CHOLESTEROL 134 mg/dL (<200); LDL CHOLESTEROL 79 mg/dL (9-159); POTASSIUM 4.5 mmol/L (3.4-5.1); THYROID STIM HORMONE (HS) 0.369 uIU/ml (0.550-4.780); TOTAL PROTEIN 6.3 gm/dL (6.0-8.0); TRIGLYCERIDES 135 mg/dl (<150)
[2022-11-26 08:54] LABS: BUN 20 mg/dl (9-23); SGPT/ALT < 7 U/L (10-49)
[2022-11-26 09:11] LABS: FREE T4 1.04 ng/dl (0.89-1.76)
[2022-11-26 10:33] LABS: VITAMIN D, 25-HYDROXY 34.2 ng/mL (30-100)
[2022-11-26 12:00] VITALS: BP 155/58
[2022-11-26] MEDS ORDERED: PREDNISONE10 MG PO (12:15)
[2022-11-26] MEDS ORDERED: MUCINEX ER600 MG PO (12:15)
[2022-11-26] MEDS ORDERED: LEVOFLOXACIN500 MG PO (12:15)
== END 2022-11-26 14:50 | disposition home or self-care (01) | DRG 871 ==
LOC: ED 10:19 → EDHOLD 13:21 → 5E 14:02
PROVIDERS: Emergency Medicine; Student in an Organized Health Care Education/Training Program; ADMIT Internal Medicine; ATTEND Internal Medicine
PROC: 5A09357 Assistance with Respiratory Ventilation, Less than 24 Consecutive Hours, Continuous Positive Airway Pressure (ICD-10-PCS; principal; 2022-11-26)
DX: A41.9 Sepsis, unspecified organism (principal); J18.9 Pneumonia, unspecified organism; J44.1 Chronic obstructive pulmonary disease with (acute) exacerbation; I50.30 Unspecified diastolic (congestive) heart failure; J96.10 Chronic respiratory failure, unspecified whether with hypoxia or hypercapnia; J44.0 Chronic obstructive pulmonary disease with (acute) lower respiratory infection; R65.20 Severe sepsis without septic shock; D53.9 Nutritional anemia, unspecified; E87.8 Other disorders of electrolyte and fluid balance, not elsewhere classified; E11.65 Type 2 diabetes mellitus with hyperglycemia; I48.91 Unspecified atrial fibrillation; M1A.9XX0 Chronic gout, unspecified, without tophus (tophi); F17.210 Nicotine dependence, cigarettes, uncomplicated; G47.33 Obstructive sleep apnea (adult) (pediatric); Z99.81 Dependence on supplemental oxygen; Z71.6 Tobacco abuse counseling; Z88.1 Allergy status to other antibiotic agents; Z79.51 Long term (current) use of inhaled steroids; Z79.899 Other long term (current) drug therapy

== ENCOUNTER → 2023-03-03 | Outpatient (CLI) | payer OTHER ==
[~2023-03-03] MED LIST changes: +INSULIN LI100 UNIT/2 SQ; +VITAMIN B1250 MCG PO
[2023-03-03 13:31] LABS: BUN 16 mg/dl (9-23); CHLORIDE 95 mmol/L (98-107); POTASSIUM 4.4 mmol/L (3.4-5.1)
== END | disposition home or self-care (01) ==
LOC: LAB 12:50
PROVIDERS: ATTEND Nurse Practitioner Family
DX: R60.9 Edema, unspecified (principal); I50.9 Heart failure, unspecified; E11.69 Type 2 diabetes mellitus with other specified complication

== ENCOUNTER 2023-04-23 13:53 | Emergency (ER) | payer OTHER ==
[~2023-04-23] VITALS: Ht 177.8 cm; Wt 121.1 kg
[~2023-04-23 13:53] MED LIST changes: +INSULIN GL100 UNIT/5 SC; +PROVENTIL HFA6.7 GM INH
[2023-04-23 14:29] LABS: BASO # 0.1 10*3/uL (0.0-0.1); BASO % 0.5 % (0.0-1.0); EOS # 0.2 10*3/uL (0.0-0.4); EOS % 1.5 % (1.0-4.0); HEMATOCRIT 32.3 % (42.0-52.0); LYMPH # 2.1 10*3/uL (1.3-4.4); LYMPH % 17.4 % (27.0-41.0); MEAN CORPUSCULAR HGB 24.5 pg (27.0-31.0); MEAN CORPUSCULAR HGB CONC 27.9 g/dl (33.0-37.0); MEAN PLATELET VOLUME 10.4 fl (9.6-12.3); MONO # 0.6 10*3/uL (0.1-1.0); MONO % 4.8 % (3.0-9.0); NEUT # 8.9 10*3/uL (2.3-7.9); PLATELET COUNT AUTOMATED 344 10*3/uL (130-400); RED BLOOD COUNT 3.67 10*6/uL (4.50-5.90); RED CELL DISTRI WIDTH 18.1 % (0-14.5); WHITE BLOOD COUNT 11.9 10*3/uL (4.8-10.8)
[2023-04-23 14:50] LABS: ALKALINE PHOSPHATASE 118 U/L (46-116); BUN 11 mg/dl (9-23); CHLORIDE 95 mmol/L (98-107); POTASSIUM 4.3 mmol/L (3.4-5.1); TOTAL PROTEIN 6.7 gm/dL (6.0-8.0)
[2023-04-23 14:51] LABS: SGPT/ALT < 7 U/L (10-49)
[2023-04-23] MEDS ORDERED: AVPAK AZITHROM250 M1 PO ×2 (15:06)
[2023-04-23] MEDS ORDERED: PREDNISONE20 M1 PO ×2 (15:06)
[2023-04-23 15:11] VITALS: BP 141/40
== END 2023-04-23 17:10 | disposition home or self-care (01) ==
LOC: ED 13:53
PROVIDERS: Emergency Medicine
DX: J44.1 Chronic obstructive pulmonary disease with (acute) exacerbation (principal); E11.9 Type 2 diabetes mellitus without complications; Z79.4 Long term (current) use of insulin; I11.0 Hypertensive heart disease with heart failure; I50.9 Heart failure, unspecified; Z88.1 Allergy status to other antibiotic agents; Z98.890 Other specified postprocedural states; F17.200 Nicotine dependence, unspecified, uncomplicated

== ENCOUNTER → 2023-05-16 | Outpatient (CLI) | payer OTHER ==
[~2023-05-16] MED LIST changes: +AVPAK AZITHROM250 M1 PO
[2023-05-16 19:34] LABS: BASO # 0.1 10*3/uL (0.0-0.1); BASO % 0.5 % (0.0-1.0); EOS # 0.2 10*3/uL (0.0-0.4); EOS % 1.5 % (1.0-4.0); LYMPH % 19.9 % (27.0-41.0); MEAN CELL VOLUME 89.2 fl (80.0-94.0); MEAN CORPUSCULAR HGB 24.4 pg (27.0-31.0); MEAN CORPUSCULAR HGB CONC 27.4 g/dl (33.0-37.0); MEAN PLATELET VOLUME 10.6 fl (9.6-12.3); MONO # 0.7 10*3/uL (0.1-1.0); MONO % 4.9 % (3.0-9.0); NEUT # 10.8 10*3/uL (2.3-7.9); NEUT % 72.7 % (47.0-73.0); PLATELET COUNT AUTOMATED 281 10*3/uL (130-400); RED BLOOD COUNT 3.81 10*6/uL (4.50-5.90); RED CELL DISTRI WIDTH 18.3 % (0-14.5); WHITE BLOOD COUNT 14.8 10*3/uL (4.8-10.8)
== END | disposition home or self-care (01) ==
LOC: LAB 15:11
PROVIDERS: ATTEND Internal Medicine Critical Care Medicine
DX: Z79.899 Other long term (current) drug therapy (principal)

== ENCOUNTER → 2023-05-23 | Outpatient (CLI) | payer OTHER ==
[2023-05-23 14:25] LABS: BUN 20 mg/dl (9-23); CHLORIDE 98 mmol/L (98-107); DIGOXIN 0.96 ng/ml (0.8-2.0)
== END | disposition home or self-care (01) ==
LOC: LAB 13:49
PROVIDERS: ATTEND Internal Medicine Cardiovascular Disease
DX: I48.0 Paroxysmal atrial fibrillation (principal)

== ENCOUNTER 2023-09-18 19:19 | Emergency (ER) | payer OTHER ==
[~2023-09-18] VITALS: Ht 172.7 cm; Wt 99.8 kg
[2023-09-18 19:19] VITALS: BP 0/0
[~2023-09-18 19:19] MED LIST changes: +METOPROLOL SUCC50 M1 PO; +TRELEGY ELLIPT1 EACH INH; +VARENICLINE TART1 MG PO; +VITAMIN B121000 MC1 PO
== END 2023-09-18 19:47 ==
LOC: ED 19:19
DX: I46.9 Cardiac arrest, cause unspecified (principal); I50.9 Heart failure, unspecified; Z88.1 Allergy status to other antibiotic agents; Z98.890 Other specified postprocedural states; F12.10 Cannabis abuse, uncomplicated; F14.10 Cocaine abuse, uncomplicated; F17.210 Nicotine dependence, cigarettes, uncomplicated